=== PATIENT | male | born 1955 | race Caucasian/White ===

== ENCOUNTER 2017-02-18 04:03 | Emergency (ER) | payer OTHER ==
[~2017-02-18 04:03] MED LIST: AMBIEN10 MG PO; ASPIR-LOW81 M1 PO; ATI0.5 PO; ATI1 PO; CYCLOBENZAPRINE5 MG PO; DIA5 PO; FERL PO; FOL1 PO; FORTESTA; GLU850 PO; K10 PO; KEPPRA500 MG PO; LAC30L PO; LACTULOSE10 GM/152 PO; LASIX40 MG PO; MAG PO; NAP500 PO; NORCO1 TA2 PO; OYSCO 500 + D 51 TAB PO; PAX20 PO; PRI20 PO; TEN50 PO; THI100 PO; TRAMADOL HCL50 MG PO; V10 PO; ZOC20 PO
[2017-02-18 06:46] VITALS: BP 156/79
== END 2017-02-18 06:46 | disposition home or self-care (01) ==
LOC: ED 04:03
DX: S00.83XA Contusion of other part of head, initial encounter (principal); F10.10 Alcohol abuse, uncomplicated; I10 Essential (primary) hypertension; E11.9 Type 2 diabetes mellitus without complications; E78.00 Pure hypercholesterolemia, unspecified; M19.90 Unspecified osteoarthritis, unspecified site; F32.9 Major depressive disorder, single episode, unspecified; W18.30XA Fall on same level, unspecified, initial encounter; Y93.89 Activity, other specified; Y92.89 Other specified places as the place of occurrence of the external cause; Y99.8 Other external cause status
CPT/HCPCS: 90715

== ENCOUNTER 2017-03-20 15:57 | Inpatient (IN) | payer OTHER ==
[~2017-03-20] VITALS: Ht 172.7 cm; Wt 149.2 kg
[2017-03-20 17:44] LABS: RED CELL DISTRIBUTION WIDTH 13.9 % (11.5-14.5)
[2017-03-20 17:50] LABS: PLATELET COUNT 115 x10^3mcL (130-400)
[2017-03-20 18:13] LABS: FREE T4 1.07 ng/dL (0.76-1.46); FREE THYROXINE INDEX 2.6 ug/dL (1.4-4.5); T4(THYROXINE) 6.9 ug/dL (4.7-13.3)
[2017-03-20 18:15] LABS: BILIRUBIN TOTAL 0.64 mg/dL (0.20-1.00); CALCIUM 9.1 mg/dL (8.5-10.1); CARBON DIOXIDE 26.6 mmol/L (21-32); TOTAL PROTEIN, SERUM 7.6 g/dL (6.4-8.2)
[2017-03-20 18:16] LABS: CHOLESTEROL/HDL RATIO 1.9
[2017-03-20 18:31] LABS: T3 TOTAL 1.02 ng/mL
[2017-03-20 19:53] LABS: MAGNESIUM 2.3 mg/dL (1.8-2.4); PHOSPHOROUS 2.6 mg/dL (2.5-4.9)
[2017-03-20 20:11] VITALS: BP 138/62
[2017-03-20 20:55] VITALS: BP 138/62
[2017-03-21 05:59] LABS: BASOPHIL % 0.9 % (0-2); RED CELL DISTRIBUTION WIDTH 13.6 % (11.5-14.5)
[2017-03-21 06:11] VITALS: BP 148/68
[2017-03-21 06:21] LABS: CALCIUM 8.7 mg/dL (8.5-10.1); CARBON DIOXIDE 24.1 mmol/L (21-32); CHLORIDE SERUM 111 mmol/L (98-107); CREATININE SERUM 1.1 mg/dL (0.7-1.3); GFR1 > 60 mL/min; GLUCOSE SERUM 111 mg/dL (74-106); MAGNESIUM 2.3 mg/dL (1.8-2.4); PHOSPHOROUS 4.2 mg/dL (2.5-4.9); PLATELET COUNT 96 x10^3mcL (130-400); POTASSIUM SERUM 3.5 mmol/L (3.5-5.1); SODIUM SERUM 145 mmol/L (136-145)
[2017-03-21 07:05] LABS: UA SPECIFIC GRAVITY 1.015 (1.005-1.035); microscopic required? YES; urine erythrocyte NEGATIVE (NEGATIVE)
[2017-03-21 07:17] LABS: AMPHETAMINE QUAL UR NONE DETECTED (NEG <=1000)
[2017-03-21] MEDS ORDERED: PROPRANOLOL HCL40 MG PO (10:37)
[2017-03-21 13:22] VITALS: BP 136/55
[2017-03-21 15:23] VITALS: BP 136/55
[2017-03-21 17:58] VITALS: BP 146/56
[2017-03-21 21:04] VITALS: BP 139/53
[2017-03-22 04:46] VITALS: BP 101/68
[2017-03-22 06:09] LABS: CALCIUM 8.2 mg/dL (8.5-10.1); CARBON DIOXIDE 26.5 mmol/L (21-32); CHLORIDE SERUM 109 mmol/L (98-107); CREATININE SERUM 0.8 mg/dL (0.7-1.3); GFR1 > 60 mL/min; GLUCOSE SERUM 131 mg/dL (74-106); POTASSIUM SERUM 3.4 mmol/L (3.5-5.1); SODIUM SERUM 141 mmol/L (136-145)
[2017-03-22 06:21] LABS: BASOPHIL % 0.7 % (0-2); RED CELL DISTRIBUTION WIDTH 13.6 % (11.5-14.5)
[2017-03-22 06:27] LABS: PLATELET COUNT 91 x10^3mcL (130-400)
[2017-03-22 08:59] VITALS: BP 129/50
[2017-03-22 12:43] VITALS: BP 146/52
[2017-03-22 16:47] VITALS: BP 132/63
[2017-03-22 21:14] VITALS: BP 142/49
[2017-03-23 05:58] VITALS: BP 133/58
[2017-03-23 06:42] LABS: BASOPHIL % 0.8 % (0-2); RED CELL DISTRIBUTION WIDTH 13.5 % (11.5-14.5)
[2017-03-23 06:52] LABS: PLATELET COUNT 98 x10^3mcL (130-400)
[2017-03-23 07:05] LABS: CALCIUM 8.3 mg/dL (8.5-10.1); CARBON DIOXIDE 27.1 mmol/L (21-32); CHLORIDE SERUM 106 mmol/L (98-107); CREATININE SERUM 0.9 mg/dL (0.7-1.3); GFR1 > 60 mL/min; GLUCOSE SERUM 127 mg/dL (74-106); POTASSIUM SERUM 3.7 mmol/L (3.5-5.1); SODIUM SERUM 141 mmol/L (136-145)
[2017-03-23 08:47] VITALS: BP 129/69
[2017-03-23 13:25] VITALS: BP 149/74
[2017-03-23] MEDS ORDERED: XIFAXAN550 M1 PO (15:12)
[2017-03-23] MEDS ORDERED: LAC30L PO (15:14)
[2017-03-23 15:25] VITALS: BP 149/74
[2017-03-23] MEDS ORDERED: ASPIR 8181 MG PO (17:46)
== END 2017-03-23 16:19 | disposition home or self-care (01) | DRG 432 ==
LOC: ED 15:57 → DU 19:05
PROVIDERS: Specialist; ADMIT Family Medicine Sports Medicine
DX: K70.30 Alcoholic cirrhosis of liver without ascites (principal); N17.0 Acute kidney failure with tubular necrosis; D68.69 Other thrombophilia; E44.0 Moderate protein-calorie malnutrition; Z68.42 Body mass index [BMI] 45.0-49.9, adult; K72.90 Hepatic failure, unspecified without coma; F10.229 Alcohol dependence with intoxication, unspecified; I16.0 Hypertensive urgency; E11.65 Type 2 diabetes mellitus with hyperglycemia; E11.59 Type 2 diabetes mellitus with other circulatory complications; E87.6 Hypokalemia; D64.9 Anemia, unspecified; I10 Essential (primary) hypertension; G40.909 Epilepsy, unspecified, not intractable, without status epilepticus; M19.90 Unspecified osteoarthritis, unspecified site; F32.9 Major depressive disorder, single episode, unspecified; E66.01 Morbid (severe) obesity due to excess calories; Y90.6 Blood alcohol level of 120-199 mg/100 ml; Z79.84 Long term (current) use of oral hypoglycemic drugs
CPT/HCPCS: 83880; 84439; 90658; 94150; G0480; J3411; J3475; J3490; J7030; J7620; Q0092

== ENCOUNTER 2017-04-12 21:01 | Emergency (ER) | payer OTHER ==
[~2017-04-12 21:01] MED LIST changes: +ASPIR 8181 MG PO; +PROPRANOLOL HCL40 MG PO; +XIFAXAN550 M1 PO
[2017-04-12 22:15] LABS: BASOPHIL % 0.5 % (0-2); RED CELL DISTRIBUTION WIDTH 13.3 % (11.5-14.5)
[2017-04-12 22:17] LABS: PLATELET COUNT 117 x10^3mcL (130-400)
[2017-04-12 22:20] LABS: CALCIUM 9.1 mg/dL (8.5-10.1); CARBON DIOXIDE 29.4 mmol/L (21-32); CHLORIDE SERUM 100 mmol/L (98-107); CREATININE SERUM 1.2 mg/dL (0.7-1.3); GFR1 > 60 mL/min; POTASSIUM SERUM 3.9 mmol/L (3.5-5.1); SODIUM SERUM 136 mmol/L (136-145)
[2017-04-12 22:26] LABS: ALKALINE PHOSPHATASE 172 U/L (46-116); ALT/SGPT 22 U/L (16-63); AST/SGOT 31 U/L (15-37); BILIRUBIN TOTAL 0.6 mg/dL (0.20-1.00); TOTAL PROTEIN, SERUM 7.5 g/dL (6.4-8.2)
[2017-04-12 22:28] LABS: ALBUMIN 2.7 g/dL (3.4-5.0)
[2017-04-12 22:34] LABS: GLUCOSE SERUM 424 mg/dL (74-106)
[2017-04-12 22:47] LABS: UA SPECIFIC GRAVITY <=1.005 (1.005-1.035); microscopic required? YES; urine erythrocyte 2+ (NEGATIVE)
[2017-04-13 01:55] VITALS: BP 157/74
== END 2017-04-13 01:55 | disposition home or self-care (01) ==
LOC: ED 21:01
PROVIDERS: Emergency Medicine
DX: E11.65 Type 2 diabetes mellitus with hyperglycemia (principal); F10.129 Alcohol abuse with intoxication, unspecified; I10 Essential (primary) hypertension; E78.00 Pure hypercholesterolemia, unspecified; M19.90 Unspecified osteoarthritis, unspecified site
CPT/HCPCS: G0480; J1815; J7030

== ENCOUNTER 2018-06-16 10:20 | Inpatient (IN) | payer OTHER ==
[~2018-06-16] VITALS: Ht 172.7 cm; Wt 139.0 kg
[~2018-06-16 10:20] MED LIST changes: -AMBIEN10 MG PO
[2018-06-16 11:48] LABS: BASOPHIL % 0.3 % (0-2); PLATELET COUNT 113 x10^3mcL (130-400); RED CELL DISTRIBUTION WIDTH 14.4 % (11.5-14.5)
[2018-06-16 12:12] LABS: BILIRUBIN TOTAL 0.72 mg/dL (0.20-1.00); CALCIUM 8.7 mg/dL (8.5-10.1); CARBON DIOXIDE 18.8 mmol/L (21-32); CREATININE SERUM 2.2 mg/dL (0.7-1.3); TOTAL PROTEIN, SERUM 8.2 g/dL (6.4-8.2)
[2018-06-16 12:20] LABS: ALBUMIN 2.9 g/dL (3.4-5.0)
[2018-06-16 17:30] VITALS: BP 110/56
[2018-06-16 17:44] VITALS: BP 110/56
[2018-06-16 20:13] VITALS: BP 149/48
[2018-06-16 22:05] LABS: UA SPECIFIC GRAVITY >=1.030 (1.005-1.035); microscopic required? YES; urine erythrocyte 3+ (NEGATIVE)
[2018-06-17 05:39] VITALS: BP 155/56
[2018-06-17 08:10] LABS: BILIRUBIN TOTAL 0.97 mg/dL (0.20-1.00); CALCIUM 7.8 mg/dL (8.5-10.1); CARBON DIOXIDE 23.4 mmol/L (21-32); CREATININE SERUM 1.9 mg/dL (0.7-1.3); POTASSIUM SERUM 3.6 mmol/L (3.5-5.1); TOTAL PROTEIN, SERUM 6.6 g/dL (6.4-8.2)
[2018-06-17 08:17] LABS: ALBUMIN 2.2 g/dL (3.4-5.0)
[2018-06-17 10:08] VITALS: BP 145/66
[2018-06-17 12:15] VITALS: BP 157/60
[2018-06-17 12:57] LABS: BASOPHIL % 0.2 % (0-2); RED CELL DISTRIBUTION WIDTH 14.1 % (11.5-14.5)
[2018-06-17 13:16] LABS: PLATELET COUNT 68 x10^3mcL (130-400)
[2018-06-17 17:13] VITALS: BP 165/71
[2018-06-17 20:57] VITALS: BP 153/63
[2018-06-18 06:08] LABS: BASOPHIL % 0.6 % (0-2); RED CELL DISTRIBUTION WIDTH 14.1 % (11.5-14.5)
[2018-06-18 06:11] VITALS: BP 153/71
[2018-06-18 06:28] LABS: BILIRUBIN DIRECT 0.32 mg/dL (0.0-0.2); BILIRUBIN TOTAL 0.92 mg/dL (0.20-1.00); CARBON DIOXIDE 23.7 mmol/L (21-32); CREATININE SERUM 2.8 mg/dL (0.7-1.3); POTASSIUM SERUM 3.7 mmol/L (3.5-5.1)
[2018-06-18 06:50] LABS: PLATELET COUNT 68 x10^3mcL (130-400)
[2018-06-18 07:52] VITALS: BP 150/60
[2018-06-18 11:57] VITALS: BP 141/69
[2018-06-18 16:15] VITALS: BP 149/60
[2018-06-18 21:52] VITALS: BP 165/62
[2018-06-19 05:41] VITALS: BP 131/59
[2018-06-19 07:23] LABS: BILIRUBIN TOTAL 1.14 mg/dL (0.20-1.00); CARBON DIOXIDE 22.5 mmol/L (21-32); CREATININE SERUM 3.7 mg/dL (0.7-1.3); POTASSIUM SERUM 3.4 mmol/L (3.5-5.1)
[2018-06-19 07:29] LABS: ALBUMIN 2.3 g/dL (3.4-5.0); TOTAL PROTEIN, SERUM 5.9 g/dL (6.4-8.2)
[2018-06-19 08:14] VITALS: BP 177/63
[2018-06-19 11:16] LABS: BASOPHIL % 0.6 % (0-2); RED CELL DISTRIBUTION WIDTH 13.9 % (11.5-14.5)
[2018-06-19 11:27] LABS: PLATELET COUNT 63 x10^3mcL (130-400)
[2018-06-19 12:06] VITALS: BP 171/56
[2018-06-19 15:47] VITALS: BP 150/67
[2018-06-19 21:58] VITALS: BP 167/53
[2018-06-20 05:08] VITALS: BP 164/55
[2018-06-20 06:44] LABS: BILIRUBIN DIRECT 0.46 mg/dL (0.0-0.2); BILIRUBIN TOTAL 1.3 mg/dL (0.20-1.00); CALCIUM 8.4 mg/dL (8.5-10.1); CARBON DIOXIDE 18.6 mmol/L (21-32)
[2018-06-20 06:46] LABS: ALBUMIN 2.3 g/dL (3.4-5.0); CREATININE SERUM 4.4 mg/dL (0.7-1.3); TOTAL PROTEIN, SERUM 5.7 g/dL (6.4-8.2)
[2018-06-20 07:54] LABS: BASOPHIL % 0.5 % (0-2); RED CELL DISTRIBUTION WIDTH 13.8 % (11.5-14.5)
[2018-06-20 07:56] LABS: PLATELET COUNT 72 x10^3mcL (130-400)
[2018-06-20 09:30] VITALS: BP 155/54
[2018-06-20 12:21] VITALS: BP 153/50
[2018-06-20 16:25] VITALS: BP 152/54
[2018-06-20 20:59] VITALS: BP 169/67
[2018-06-21 05:28] VITALS: BP 165/82
[2018-06-21 07:16] LABS: BASOPHIL % 0.4 % (0-2); RED CELL DISTRIBUTION WIDTH 14.1 % (11.5-14.5)
[2018-06-21 07:24] LABS: BILIRUBIN TOTAL 1.39 mg/dL (0.20-1.00); CALCIUM 7.8 mg/dL (8.5-10.1); CARBON DIOXIDE 22.9 mmol/L (21-32)
[2018-06-21 07:26] LABS: ALBUMIN 2.2 g/dL (3.4-5.0); TOTAL PROTEIN, SERUM 5.3 g/dL (6.4-8.2)
[2018-06-21 07:28] LABS: CREATININE SERUM 4.4 mg/dL (0.7-1.3); POTASSIUM SERUM 2.9 mmol/L (3.5-5.1)
[2018-06-21 07:38] LABS: ALBUMIN 2.1 g/dL (3.4-5.0); BILIRUBIN DIRECT 0.42 mg/dL (0.0-0.2); BILIRUBIN TOTAL 1.35 mg/dL (0.20-1.00); CALCIUM 7.9 mg/dL (8.5-10.1); CARBON DIOXIDE 20.9 mmol/L (21-32); TOTAL PROTEIN, SERUM 5.6 g/dL (6.4-8.2)
[2018-06-21 07:39] LABS: CREATININE SERUM 4.4 mg/dL (0.7-1.3)
[2018-06-21 08:13] LABS: PLATELET COUNT 92 x10^3mcL (130-400)
[2018-06-21 09:26] VITALS: BP 134/59
[2018-06-21 14:10] VITALS: BP 140/47
[2018-06-21 17:00] VITALS: BP 135/54
[2018-06-21 21:00] VITALS: BP 144/51
[2018-06-22 05:10] VITALS: BP 139/59
[2018-06-22 07:25] LABS: BASOPHIL % 0.6 % (0-2); PLATELET COUNT 113 x10^3mcL (130-400); RED CELL DISTRIBUTION WIDTH 14.2 % (11.5-14.5)
[2018-06-22 07:30] LABS: BILIRUBIN DIRECT 0.52 mg/dL (0.0-0.2); BILIRUBIN TOTAL 1.4 mg/dL (0.20-1.00); CALCIUM 8.5 mg/dL (8.5-10.1); CARBON DIOXIDE 26.1 mmol/L (21-32); POTASSIUM SERUM 3.3 mmol/L (3.5-5.1)
[2018-06-22 07:37] LABS: ALBUMIN 2.1 g/dL (3.4-5.0); TOTAL PROTEIN, SERUM 5.8 g/dL (6.4-8.2)
[2018-06-22 09:07] VITALS: BP 153/91
[2018-06-22 12:50] VITALS: BP 146/50
[2018-06-22 16:59] VITALS: BP 147/50
[2018-06-22 20:53] VITALS: BP 154/50
[2018-06-23 05:20] VITALS: BP 158/53
[2018-06-23 07:10] LABS: BASOPHIL % 0.5 % (0-2); RED CELL DISTRIBUTION WIDTH 14.2 % (11.5-14.5)
[2018-06-23 07:13] LABS: PLATELET COUNT 113 x10^3mcL (130-400)
[2018-06-23 07:25] LABS: BILIRUBIN DIRECT 0.46 mg/dL (0.0-0.2); BILIRUBIN TOTAL 1.42 mg/dL (0.20-1.00); CARBON DIOXIDE 25.6 mmol/L (21-32); CREATININE SERUM 3.4 mg/dL (0.7-1.3); POTASSIUM SERUM 3.1 mmol/L (3.5-5.1)
[2018-06-23 07:27] LABS: TOTAL PROTEIN, SERUM 5.9 g/dL (6.4-8.2)
[2018-06-23 09:34] VITALS: BP 183/67
[2018-06-23 12:31] VITALS: BP 159/58
[2018-06-23 16:28] VITALS: BP 150/59
[2018-06-23 21:39] VITALS: BP 157/57
[2018-06-24] VITALS (7 sets, daily range): BP systolic 148–174; BP diastolic 52–75
[2018-06-24 06:26] LABS: CK-BB 0 % (0); CK-MB 0 % (0-3); CK-MM 100 % (97-100); MACRO TYPE 1 0 % (Not Observed); MACRO TYPE 2 0 % (Not Observed)
[2018-06-24 06:26] LABS: CK-BB 0 % (0); CK-MB 0 % (0-3); CK-MM 100 % (97-100); MACRO TYPE 1 0 % (Not Observed); MACRO TYPE 2 0 % (Not Observed)
[2018-06-24 06:31] LABS: BASOPHIL % 0.6 % (0-2); RED CELL DISTRIBUTION WIDTH 14.4 % (11.5-14.5)
[2018-06-24 06:50] LABS: BILIRUBIN TOTAL 1.28 mg/dL (0.20-1.00); CALCIUM 8.1 mg/dL (8.5-10.1); CARBON DIOXIDE 25.8 mmol/L (21-32); CREATININE SERUM 2.6 mg/dL (0.7-1.3); MAGNESIUM 1.3 mg/dL (1.8-2.4); POTASSIUM SERUM 3.1 mmol/L (3.5-5.1)
[2018-06-24 07:22] LABS: TOTAL PROTEIN, SERUM 5.9 g/dL (6.4-8.2)
[2018-06-24 07:32] LABS: PLATELET COUNT 119 x10^3mcL (130-400)
[2018-06-24] MEDS ORDERED: NOR10 PO (10:40)
[2018-06-24] MEDS ORDERED: LEVEMIR100 U/M1 SC (10:40)
[2018-06-24] MEDS ORDERED: HUMULIN R100 U/1 M1 SC (10:41)
[2018-06-24] MEDS ORDERED: AMBIEN10 MG PO (13:23)
[2018-06-25] VITALS (7 sets, daily range): BP systolic 135–170; BP diastolic 44–59
== END 2018-06-25 21:35 | DRG 432 ==
LOC: ED 10:20 → DU 15:05 → EDBEDREQ 15:07 → MU 17:21 → DU 18:19
PROVIDERS: Emergency Medicine; Internal Medicine Pulmonary Disease; ADMIT Internal Medicine
DX: K70.40 Alcoholic hepatic failure without coma (principal); N17.0 Acute kidney failure with tubular necrosis; M62.82 Rhabdomyolysis; E87.2 Acidosis; L97.419 Non-pressure chronic ulcer of right heel and midfoot with unspecified severity; K70.30 Alcoholic cirrhosis of liver without ascites; F10.229 Alcohol dependence with intoxication, unspecified; I12.9 Hypertensive chronic kidney disease with stage 1 through stage 4 chronic kidney disease, or unspecified chronic kidney disease; E11.22 Type 2 diabetes mellitus with diabetic chronic kidney disease; N18.3 Chronic kidney disease, stage 3 (moderate); E11.65 Type 2 diabetes mellitus with hyperglycemia; F41.8 Other specified anxiety disorders; E66.01 Morbid (severe) obesity due to excess calories; Z79.4 Long term (current) use of insulin; Y90.6 Blood alcohol level of 120-199 mg/100 ml
CPT/HCPCS: 36600; 82962; 97110-GP; 97116-GP; 97530-GP; C9113; G0480; J0360; J1815; J3475; J3480; J3490; J7030; P9047; Q0092

== ENCOUNTER 2018-07-12 09:35 | Inpatient (IN) | payer OTHER ==
[~2018-07-12] VITALS: Ht 172.7 cm; Wt 133.4 kg
[~2018-07-12 09:35] MED LIST changes: +AMBIEN10 MG PO; +HUMULIN R100 U/1 M1 SC; +LEVEMIR100 U/M1 SC; +NOR10 PO
[2018-07-12 09:39] VITALS: Ht 172.7 cm; Wt 133.4 kg
[2018-07-12 11:07] LABS: CALCIUM 8.6 mg/dL (8.5-10.1); CARBON DIOXIDE 33.6 mmol/L (21-32); CHLORIDE SERUM 106 mmol/L (98-107); CREATININE SERUM 1.4 mg/dL (0.7-1.3); GFR1 54 mL/min; GLUCOSE SERUM 170 mg/dL (74-106); POTASSIUM SERUM 3.1 mmol/L (3.5-5.1); SODIUM SERUM 145 mmol/L (136-145)
[2018-07-12 11:12] LABS: ALKALINE PHOSPHATASE 104 U/L (46-116); ALT/SGPT 16 U/L (16-63); AST/SGOT 28 U/L (15-37); BILIRUBIN TOTAL 1.35 mg/dL (0.20-1.00); HDL CHOLESTEROL 40 mg/dL (40-60); MAGNESIUM 1.4 mg/dL (1.8-2.4); PHOSPHOROUS 3.1 mg/dL (2.5-4.9); TOTAL PROTEIN, SERUM 7.6 g/dL (6.4-8.2)
[2018-07-12 11:13] LABS: PLATELET COUNT 89 x10^3mcL (130-400); RED CELL DISTRIBUTION WIDTH 15.2 % (11.5-14.5)
[2018-07-12 11:15] LABS: ALBUMIN 2.7 g/dL (3.4-5.0); CHOLESTEROL 129 mg/dL (<200)
[2018-07-12 14:22] LABS: microscopic required? YES; urine erythrocyte TRACE (NEGATIVE)
[2018-07-12 14:37] LABS: BAND NEUTROPHIL 2 % (0-10); SEGMENTED NEUTROPHILS 62 % (37-75)
[2018-07-12 14:38] LABS: MONOCYTE 8 % (0-7); rbc morphology (normal/abnorm) ABNORMAL (NORMAL)
[2018-07-12 14:40] LABS: PLATELET MORPHOLOGY PLATELETS DECREASED
[2018-07-12 16:35] VITALS: BP 174/71
[2018-07-12 21:02] VITALS: BP 165/63
[2018-07-13 06:09] VITALS: BP 147/55
[2018-07-13 06:47] LABS: RED CELL DISTRIBUTION WIDTH 14.1 % (11.5-14.5)
[2018-07-13 06:54] LABS: PLATELET COUNT 81 x10^3mcL (130-400)
[2018-07-13 09:18] VITALS: BP 134/47
[2018-07-13 16:28] VITALS: BP 127/48
[2018-07-14 05:39] VITALS: BP 153/48
[2018-07-14 13:56] VITALS: BP 146/62
[2018-07-14 17:03] VITALS: BP 136/47
[2018-07-14 21:18] VITALS: BP 139/54
[2018-07-15 05:45] VITALS: BP 149/77
[2018-07-15 08:56] VITALS: BP 138/47
[2018-07-15 09:05] VITALS: BP 138/47
[2018-07-15 17:06] VITALS: BP 133/55
[2018-07-15 17:16] VITALS: BP 138/47
== END 2018-07-15 19:00 | DRG 93 ==
LOC: ED 09:35 → MU 14:55
PROVIDERS: Emergency Medicine; ADMIT Internal Medicine Pulmonary Disease
DX: R27.0 Ataxia, unspecified (principal); E87.6 Hypokalemia; K70.10 Alcoholic hepatitis without ascites; I10 Essential (primary) hypertension; E11.9 Type 2 diabetes mellitus without complications; R26.81 Unsteadiness on feet; R54 Age-related physical debility; F41.9 Anxiety disorder, unspecified; F32.9 Major depressive disorder, single episode, unspecified; E78.5 Hyperlipidemia, unspecified; M19.90 Unspecified osteoarthritis, unspecified site; F10.21 Alcohol dependence, in remission; E66.01 Morbid (severe) obesity due to excess calories
CPT/HCPCS: 82962; 90715; 97110-GP; 97116-GP; G0480; J7030; Q0092

== ENCOUNTER 2018-11-25 22:04 | Emergency (ER) | payer OTHER ==
[~2018-11-25] VITALS: Ht 172.7 cm; Wt 133.8 kg
[2018-11-25 22:34] VITALS: Ht 172.7 cm; Wt 133.8 kg
[2018-11-26 00:43] LABS: RED CELL DISTRIBUTION WIDTH 14.3 % (11.5-14.5)
[2018-11-26 00:45] LABS: PLATELET COUNT 94 x10^3mcL (130-400)
[2018-11-26 01:03] LABS: CALCIUM 8.9 mg/dL (8.5-10.1); CARBON DIOXIDE 24.8 mmol/L (21-32); POTASSIUM SERUM 3.8 mmol/L (3.5-5.1)
[2018-11-26 01:08] LABS: BILIRUBIN TOTAL 0.6 mg/dL (0.20-1.00); TOTAL PROTEIN, SERUM 6.9 g/dL (6.4-8.2)
[2018-11-26 01:10] LABS: ALBUMIN 2.7 g/dL (3.4-5.0)
[2018-11-26 01:41] LABS: microscopic required? YES; urine erythrocyte 2+ (NEGATIVE)
[2018-11-26 03:01] VITALS: BP 146/71
== END 2018-11-26 03:01 | disposition home or self-care (01) ==
LOC: ED 22:04
PROVIDERS: Emergency Medicine
DX: S93.491A Sprain of other ligament of right ankle, initial encounter (principal); M21.371 Foot drop, right foot; I12.9 Hypertensive chronic kidney disease with stage 1 through stage 4 chronic kidney disease, or unspecified chronic kidney disease; E11.22 Type 2 diabetes mellitus with diabetic chronic kidney disease; N18.9 Chronic kidney disease, unspecified; F10.20 Alcohol dependence, uncomplicated; E11.65 Type 2 diabetes mellitus with hyperglycemia; N39.0 Urinary tract infection, site not specified; F32.9 Major depressive disorder, single episode, unspecified; E78.00 Pure hypercholesterolemia, unspecified; F41.9 Anxiety disorder, unspecified; M19.90 Unspecified osteoarthritis, unspecified site; W01.0XXA Fall on same level from slipping, tripping and stumbling without subsequent striking against object, initial encounter; Y93.01 Activity, walking, marching and hiking; Y92.098 Other place in other non-institutional residence as the place of occurrence of the external cause; Y99.8 Other external cause status
CPT/HCPCS: 36415; 82962; G0480; J1815; J1885

== ENCOUNTER 2019-01-18 12:03 | Inpatient (IN) | payer OTHER ==
[~2019-01-18] VITALS: Ht 172.7 cm; Wt 135.0 kg
--- NOTE | 2019-01-18 12:15 | NUR ---
PT PRESENTS TO ED BIBA FOR GENERAL WEAKNESS AND ELEVATED BLOOD GLUCOSE. PER EMS PT SON CALLED THEM BECAUSE PT WAS FEELING "VERY WEAK" AND WAS LAYING ON THE FLOOR AND COULD NOT GET UP. EMS STS PT HAS NOT BEEN EATING REGULARLY NORMAL AND HAS HAD HEADACHE X3 DAYS. EMS STS PT BLOOD GLUCOSE WAS 575 ON SCENE AND PT BP WAS 85 SYSTOLIC ON SCENE. PER EMS PT BP ELEVATED TO 110/54 IN ROUTE WHILE GETTING 1L NS. PT STS "I THINK I TOOK MY INSULIN TODAY". PT STS HE NORMALLY WALKS ON HIS OWN AT HOME, BUT IS FEELING TOO WEAK TO WALK CURRENTLY. PT AAOX4, RESP E/U, ON FULL CM, WILL CONTINUE TO MONITOR.
[2019-01-18 13:14] LABS: BASOPHIL % 0.1 % (0-2); RED CELL DISTRIBUTION WIDTH 14.1 % (11.5-14.5)
[2019-01-18 13:17] LABS: PLATELET COUNT 49 x10^3mcL (130-400)
[2019-01-18 13:41] LABS: CARBON DIOXIDE 19.5 mmol/L (21-32); CHLORIDE SERUM 97 mmol/L (98-107); CREATININE SERUM 1.6 mg/dL (0.7-1.3); GFR1 47 mL/min; GLUCOSE SERUM 410 mg/dL (74-106); POTASSIUM SERUM 3.5 mmol/L (3.5-5.1); SODIUM SERUM 126 mmol/L (136-145)
[2019-01-18 13:45] LABS: ALKALINE PHOSPHATASE 67 U/L (46-116); ALT/SGPT 9 U/L (16-63); AST/SGOT 21 U/L (15-37); BILIRUBIN TOTAL 0.92 mg/dL (0.20-1.00)
[2019-01-18 13:46] LABS: ALBUMIN 2.2 g/dL (3.4-5.0)
--- NOTE | 2019-01-18 13:59 | NUR ---
PT CONTINUES TO REQUEST FOR BLANKET. PT TOLD HE HAS FEVER OF 101.8F AND SHOULD HAVE LITTLE CLOTHING ON HIS BODY POSSIBLE RIGHT NOW. PT VERBALIZED UNDERSTANDING. NOTIFIED OF PT FEVER.
[2019-01-18 14:30] LABS: microscopic required? YES; urine erythrocyte 3+ (NEGATIVE)
--- NOTE | 2019-01-18 14:39 | NUR ---
PT HAS INFECTION (UTI), PT MEETS SIRS (ELEVATED TEMP, ELEVATED RR) PT HAS SIGNS OF ORGAN DYSFUNCTION (LACTIC ACID 2.7) [PLATELETS ARE 49,[address] QIU THIS IS CHRONIC/NOT ACUTE.] PT MEETS CRITERIA FOR SEVERE SEPSIS. DR. QIU NOTIFIED.
--- NOTE | 2019-01-18 16:48 | NUR ---
RECYCLED PT BP X4 AND HIGHEST SYSTOLIC BP WAS 88. DR. QIU WAS MADE AWARE. PT AAOX4, RESP E/U, ON FULL CM, WILL CONTINUE TO MONITOR.
--- NOTE | 2019-01-18 16:59 | NUR ---
PT ATTEMPTED TO USE BEDSIDE URINAL BUT WAS UNABLE TO URINATE. PT STS HE FEELS LIKE HE HAS TO GO BUT IS UNABLE TO.
--- NOTE | 2019-01-18 17:59 | NUR ---
PT GIVEN WATER PER REQUEST. PT AAOX4, RESP E/U, ON FULL CM, WILL CONTINUE TO MONITOR.
--- NOTE | 2019-01-18 18:20 | NUR ---
PT GIVEN PERICARE WITH ASSISTANCE FROM SUNNY OSHEA
--- NOTE | 2019-01-18 19:23 | NUR ---
REPORT GIVEN TO NINO IN ICU FOR CONTINUITY OF PT CARE.
--- NOTE | 2019-01-18 19:23 | NUR ---
RECIEVED REPORT FROM NORBERTO SAPP. POC DISCUSSED. NURSING UPDATES. AWAITING PT ARRIVAL.
--- NOTE | 2019-01-18 19:35 | NUR ---
RECIEVED PT FROM ER. TEMP 98.5 RR 15. O2 94%. HR 63. BP 102/56(65). PT A&OX4. SPEECH CLEAR AND APPROPRAITE. PERRL. EENT FREE OF DISCHARGE. LUNG SOUNDS DIM. S1S2 DISTANT. PULSES WEAK JUSTIN X4. CAP REFILL < 3 SEC. NO EDEMA. GENERALIZED WEAKNESS. SKIN WARM/DRY W/ DISCOLORATION TO BLE. PT REPORTS TINGLING IN RLE. VOIDS FREELY TO BEDSIDE COMMODE. ABD DISTENDED/OBESE. BS ACTIVE X4Q. NO N/V. CALM AND COOPERATIVE.
[2019-01-18 20:21] VITALS: BP 102/56
--- NOTE | 2019-01-18 21:00 | NUR ---
NOTIFIED BY LAB OF HEP SQ CONTRAINIDCATED W/ PLT 49 AND TO CANCEL D/C ORDER WHILE ITS ON PENDING. ALSO NOTED NEEDING CLARIFICATION FOR POTASSIUM CLORDIDE [address] SEQUEIRA ENDORSE.
[2019-01-18 23:20] VITALS: BP 99/48
[2019-01-19 03:12] VITALS: BP 130/62
--- NOTE | 2019-01-19 03:42 | NUR ---
PT RESTING CALMLY IN BED. NO ACUTE CHANGES. PT DENIES ANY CHEST PAIN. WILL CONT TO MONITOR.
--- NOTE | 2019-01-19 04:54 | NUR ---
PT RESTING CALMLY IN BED. NO S/S OF DISTRESS. BP WNL. WILL CONT TO MONITOR AND ENDORSE.
--- NOTE | 2019-01-19 05:31 | NUR ---
PT C/O HEADACHE 10/24. ADMIN PRN TYLENOL *(SEE MAR)*. PT STATED HAVING ARTHRITIS IN HIS BACK AND RIGHT LOWER LEG.
[2019-01-19 06:27] LABS: BASOPHIL % 0.1 % (0-2)
[2019-01-19 06:30] LABS: CALCIUM 7.6 mg/dL (8.5-10.1); CARBON DIOXIDE 19.8 mmol/L (21-32); CREATININE SERUM 1.6 mg/dL (0.7-1.3); MAGNESIUM 1.5 mg/dL (1.8-2.4)
[2019-01-19 06:32] LABS: PLATELET COUNT 57 x10^3mcL (130-400); RED CELL DISTRIBUTION WIDTH 15.1 % (11.5-14.5)
[2019-01-19 07:46] VITALS: Ht 172.7 cm; Wt 135.0 kg
[2019-01-19 07:52] VITALS: BP 118/48
[2019-01-19 11:00] VITALS: BP 112/58
[2019-01-19 15:24] VITALS: BP 107/40
--- NOTE | 2019-01-19 16:45 | NUR ---
DR. BONILLA PAGED AT THIS TIME REGARDING PATIENTS BLOOD SUGAR OF 452.
--- NOTE | 2019-01-19 17:04 | NUR ---
DR. BONILLA CALLED AT THIS TIME. UPDATE GIVEN ON PATIENTS BLOOD SUGAR READING 452. PER DR. BONILLA, RESUME WITH LANTUS, BID ORDERED AND NO NEW ORDERS AT THIS TIME.
--- NOTE | 2019-01-19 18:53 | NUR ---
REPORT GIVEN TO NORBERTO BROWN AT THIS TIME. ALL QUESTIONS ANSWERED.
--- NOTE | 2019-01-19 19:30 | NUR ---
RECEIVED PT FROM ICU ACCOMPANIED WITH NURSE VIA WC, PT WAS ABLE TO WALK FEW STEPS FROM WC TO BED WITHOUT ANY INCIDENT, ALERT AND ORIENTED X 4, DENIES HEADACHE OR DIZZINESS, VERY VERBALLY RESPONSIVE, DENIES HEADACHE OR DIZZINESS, BREATHING EVEN AND UNLABORED, LUNG SOUNDS CLEAR BUT DIMINISHED AT BASE, ON ROOM AIR WITH NO RESP DISTRESS NOTED, ON TELE#22 NSR WITH ELEVATED T-WAVE, DENIES CHEST PAIN, IVF INFUSING WELL TO RH, PULSES PALPABLE, TRACE EDEMA NOTED TO BLE, MILD GENERALIZED WEAKNESS BUT ABLE TO MOVE ALL EXT AND REPOSITION HIMSELF IN BED, ABD ROUND AND NON-DISTENDED WITH ACTIVE BS, NO BM AT THIS TIME, INCONTINENT AT TIMES, BLE WITH DISCOLORATION, SZ PRECAUTION IN PLACE, NO DISTRESS NOTED, WILL KEEP TO MONITOR.
[2019-01-19 21:53] VITALS: BP 118/48
[2019-01-20 05:58] VITALS: BP 122/51
--- NOTE | 2019-01-20 06:03 | NUR ---
PT ASLEEP BUT EASILY AROUSABLE, SLEPT MOST OF NIGHT, IVF INFUSING WELL, MORNING BLOOD SUGAR-316 MG/DL WITH RISS 12 UNITS, CONDITION NO CHANGE, NO DISTRESS NOTED, WILL KEEP TO MONITOR.
[2019-01-20 06:55] LABS: ALBUMIN 1.7 g/dL (3.4-5.0); ALKALINE PHOSPHATASE 64 U/L (46-116); ALT/SGPT 12 U/L (16-63); AST/SGOT 30 U/L (15-37); BILIRUBIN TOTAL 0.5 mg/dL (0.20-1.00); CARBON DIOXIDE 24.9 mmol/L (21-32); CHLORIDE SERUM 107 mmol/L (98-107); CREATININE SERUM 1.1 mg/dL (0.7-1.3); GFR1 > 60 mL/min; GLUCOSE SERUM 312 mg/dL (74-106); MAGNESIUM 1.9 mg/dL (1.8-2.4); POTASSIUM SERUM 3.8 mmol/L (3.5-5.1); SODIUM SERUM 139 mmol/L (136-145); TOTAL PROTEIN, SERUM 5.6 g/dL (6.4-8.2)
[2019-01-20 07:07] LABS: PLATELET COUNT 61 x10^3mcL (130-400)
--- NOTE | 2019-01-20 07:21 | NUR ---
BEDSIDE HANDOFF REPORT GIVEN TO JOSEPHINE, ALL QUESTIONS ANSWERED AND CONCERNS ADDRESSED.
--- NOTE | 2019-01-20 08:10 | NUR ---
PT RESTING BUT EASILY AROUSABLE. AAOX4. ABLE TO FOLLOW COMMANDS. NO FACIAL DROOP NOTED. SPEECH IS CLEAR AND APPROPRIATE. PERRL. PT HAS GLASSES ON. EENT FREE OF DISCHARGE. NO JVD PRESENT. TRACHEA MIDLINE. ON ROOM AIR. SYMMETRICAL CHEST WALL EXPANSION NOTED. RESPS EVEN AND UNLABORED. NO S/S OF RESP DISTRESS. PT IS OBESE. ABD IS SYMM, LARGE, ROUNDED, NONTENDER. NO S/S OF N/V. NO BM AT THIS TIME. SKIN IS WARM/DRY, DUKE/BROWN IN COLOR. EDEMA NOTED TO BLE. DARK DISCOLORATION NOTED TO BLE. PIV TO R HAND INTACT, PORT PATENT, NS INFUSING @ 80 ML/HR, DRESSING CDI. X3 SIDE RAILS UP, BED LOWEST POSITION, CALL LIGHT WITHIN REACH.
--- NOTE | 2019-01-20 08:50 | NUR ---
PT REFUSING TO TAKE LACTULOUSE MEDICATION. EXPLAINED TO PT WHY THE MEDICATION IS NEEDED AND THE RISKS IF PT WILL NOT TAKE IT. PT CONTINUING TO REFUSE.
[2019-01-20 09:20] LABS: ATYPICAL LYMPH 1 %; BAND NEUTROPHIL 3 % (0-10); BASOPHIL 0 % (0-2); MONOCYTE 5 % (0-7); SEGMENTED NEUTROPHILS 86 % (37-75)
[2019-01-20 09:25] LABS: PLATELET MORPHOLOGY PLATELETS DECREASED; rbc morphology (normal/abnorm) ABNORMAL (NORMAL)
[2019-01-20 10:26] VITALS: BP 133/60
--- NOTE | 2019-01-20 13:18 | NUR ---
Initial Nutrition Assessment: 210T/A JUAN MANNING Dx: Sepsis, UTI, uncontrolled DM PMHx: DM, HTN, morbid obesity, alcohol abuse, alcoholic hepatitis, alcohol intoxication PSHx: not documented Labs: BG 312H, BUN 21H, ALB 1.7L, Meds: Ambien, Ativan, Colace, D 50%, folic acid, humulin, lantus, Lasix, morphine, vitamin B-1, zofran Diet: CCHO PO Intake: (01/19) 80% all meals Ht: 172.72 cm (68") Wt: 135 kg (297#) BMI: 45.3 kg/m2 Bed scale: 300# IBW: 154# (70 kg) %IBW: 192 UBW: 290-295# Age: 63/M Food Allergies: NKFA Skin: discoloration to BLE Girma: 16 Edema: BLE edema GI: Last BM: 01/19 Trigger: poor PO >3d Per H&P, Pt is a 63/M with history of morbid obesity, diabetes, and alcoholic, brought in for generalized weakness. RDN Visit (01/20): Patient was alert and oriented and said that he ate most of his breakfast this morning. Patient said that he mostly cooks food at home and seemed a little disinterested in receiving nutrition education for diabetic diet. Problem with: N/V/D/C: no Problems with: Chewing/Swallowing: none Current appetite: good Recent wt change: none %wt change: N/A Vitamin/Supplement use: none Special diet at home: regular Physical activity: says he has pain in foot Nutrition education given: Diabetes diet education was provided using [facility] handout on 'Type 2 Diabetes Nutrition Therapy'. Concepts like high fiber diet, label reading, types of carbohydrates and portion control were discussed. Patient verbalized understanding and did not have any questions at this time. Patient did seem a little disinterested. Food-drug interactions: Colace- high fiber w/8854-3927 ml fluids Education given: yes Estimated Nutritional Needs Based on adjusted body weight 86 kg Energy: 9476-6079 kcal/d (25-30 kcal/kg) Protein: 86-103 g/d (1.0-1.2 g/kg) - sepsis Fluid: 3495-0861 ml/d (1 ml/kcal) or per doctor Nutrition Diagnosis 1. Impaired nutrient utilization related to endocrine dysfunction as evidenced by BG 312. 2. Morbid obesity related to excessive energy intake as evidenced by BMI 45.3 kg/m2 Intervention 1. Recommend continuing CCHO diet. 2. Diabetes diet education provided. Monitor/Evaluate Goal: PO intake at least 75% of estimated needs Monitor: PO intake, Labs, GI function F/U in 7 days as low risk 01/27
--- NOTE | 2019-01-20 13:18 | NUR ---
1. Recommend continuing [facility] diet. 2. Diabetes diet education provided.
[2019-01-20 13:42] VITALS: BP 117/50
--- NOTE | 2019-01-20 14:21 | NUR ---
SPOKE WITH AND MADE HIM AWARE OF P.T. MAKAYLA RECOMMENDATION. NEW ORDER RECEIVED, SOCIAL SERVICE TO ARRANGE FOR HOME HEALTH P.T.
--- NOTE | 2019-01-20 16:20 | NUR ---
RECEIVED PATIENT FROM NORBERTO WHITE. PATIENT RESTING IN BED, NO COMPLAINTS AT THIS TIME. CALL LIGHT IN REACH.
[2019-01-20 17:33] VITALS: BP 127/60
--- NOTE | 2019-01-20 18:05 | NUR ---
PATIENT IN BED RESTING. NO COMPLAINTS OF PAIN. PATIENT STATES HE IS FEELING DIZZY, STATES VERTIGO. WILL ENDORSE TO ONCOMING NURSE TO SPEAK WITH [employer] OFFICER RESIDENT. VS STABLE. CALL LIGHT IN REACH AT THIS TIME.
--- NOTE | 2019-01-20 19:17 | NUR ---
PT SEEN, ALERT AND ORIENTED X 4, DENIES HEADACHE OR DIZZINESS, VERY VERBALLY RESPONSIVE, DENIES HEADACHE OR DIZZINESS, BREATHING EVEN AND UNLABORED, LUNG SOUNDS CLEAR BUT DIMINISHED AT BASE, ON ROOM AIR WITH NO RESP DISTRESS NOTED, ON TELE#22 NSR WITH ELEVATED T-WAVE AND BBB, DENIES CHEST PAIN, IVF INFUSING WELL TO RH, PULSES PALPABLE, TRACE EDEMA NOTED TO BLE, MILD GENERALIZED WEAKNESS BUT ABLE TO MOVE ALL EXT AND REPOSITION HIMSELF IN BED, ABD ROUND AND NON-DISTENDED WITH ACTIVE BS, NO BM AT THIS TIME, INCONTINENT AT TIMES, BLE WITH DISCOLORATION, SZ PRECAUTION IN PLACE, NO DISTRESS NOTED, WILL KEEP TO MONITOR.
[2019-01-20 21:19] VITALS: BP 127/56
--- NOTE | 2019-01-21 05:18 | NUR ---
PT ASLEEP BUT EASILY AROUSABLE, SLEPT MOST OF NIGHT, MORNING BLOOD SUGAR-244 MG/DL WITH RISS 6 UNITS, HAD ONE TIME BM DURING THE SHIFT, MIN FWW, FALL PRECAUTION IN PLACE, NO DISTRESS NOTED, WILL KEEP TO MONITOR.
[2019-01-21 06:07] VITALS: BP 128/45
[2019-01-21 06:26] LABS: CALCIUM 8.1 mg/dL (8.5-10.1); CARBON DIOXIDE 23.9 mmol/L (21-32); CHLORIDE SERUM 107 mmol/L (98-107); CREATININE SERUM 0.9 mg/dL (0.7-1.3); GFR1 > 60 mL/min; GLUCOSE SERUM 243 mg/dL (74-106); MAGNESIUM 1.8 mg/dL (1.8-2.4); POTASSIUM SERUM 3.6 mmol/L (3.5-5.1); SODIUM SERUM 139 mmol/L (136-145)
--- NOTE | 2019-01-21 07:15 | NUR ---
RECIEVED PT RESTING IN BED WITH NO C/O PAIN, DISTRESS, OR SOB. TELE #22 CONNECTED TO PT. NS RUNNING IN RIGHT HAND AT 80ML/HR. INTACT AND PATENT WITH NO REDNESS. SAFETY PRECAUTIONS IN PLACE, CALL LIGHT WITHIN REACH, WILL MONITOR.
[2019-01-21 08:28] LABS: PLATELET COUNT 73 x10^3mcL (130-400); RED CELL DISTRIBUTION WIDTH 15.4 % (11.5-14.5)
[2019-01-21 09:25] VITALS: BP 118/52
[2019-01-21 10:36] LABS: BAND NEUTROPHIL 2 % (0-10); BASOPHIL 0 % (0-2); MONOCYTE 4 % (0-7); SEGMENTED NEUTROPHILS 82 % (37-75)
[2019-01-21 10:37] LABS: PLATELET MORPHOLOGY PLATELETS DECREASED; rbc morphology (normal/abnorm) ABNORMAL (NORMAL)
[2019-01-21 12:34] VITALS: BP 137/45
--- NOTE | 2019-01-21 12:49 | NUR ---
PT STABLE WITH NO C/O PAIN, DISTRESS, OR SOB. SAFETY PRECAUTIONS IN PLAC, CALL LIGHT WITHIN REACH, WILL CONT TO MONITOR.
--- NOTE | 2019-01-21 13:17 | NUR ---
SPOKE WITH DR. BONILLA- PATIENT UPDATE GIVEN. INFORMED DR. BONILLA THAT PER DEIRDRE Marcelo.[place] HE SAW PATIENT AND IS RECOMMENDING SNF FOR P.T. DR. BONILLA AT BEDSIDE TO SPEAK WITH PATIENT REGARDING PLAN OF CARE- INFORMED PATIENT P.T IS RECOMMENDING SNF FOR P.T BUT PATIENT REFUSED AT THIS TIME STATED "I CAN DO THAT AT HOME." WILL INFORM CASE MANAGEMENT.
--- NOTE | 2019-01-21 15:22 | NUR ---
PT RESTING IN BED. DENIES AN PAIN, DISTRESS, OR SOB. SAFETY PRECAUTIONS IN PLACE, CALL LIGHT WITHIN REACH, WILL MONITOR.
--- NOTE | 2019-01-21 15:48 | NUR ---
PHYSICAL THERAPY DAILY NOTES CO-SIGN All documentation done by the Internal Investigator for 01/21/19 has been reviewed. I agree with the documentation. Reviewed/Co-Signed by: Leanna Ngo PT Documentation Done by:JOSE REGALADO PTA
--- NOTE | 2019-01-21 17:47 | NUR ---
PT PULLED IV OUT ACCIDENTALLY, CATHETER FOUND OUTSIDE OF SKIN. NEW IV STARTED IN LEFT HAND 22 GUAGE, INTACT ANS PATENT. BOTH SITES FREE OF REDNESS OR INFLAMMATION.
--- NOTE | 2019-01-21 18:09 | NUR ---
PT STABLE AT THIS TIME, RESTING IN BED WITH NO C/O OF PAIN, DISTRESS, OR SOB. A/O X4. TELE #22 CONNECTED TO PT. DENIES CP OR PRESSURE. TOLERATED ALL CARES WELL. VS WNL. IV SITE INTACT AND PATENT WITH NO REDNESS OR INFLAMMATION. NS RUNNING AT 80ML/HR. SAFETY PRECAUTIONS IN PLACE, CALL LIGHT WITHIN REACH, WILL ENDORSE CARE TO NIGHT NURSE.
--- NOTE | 2019-01-21 19:30 | NUR ---
RECEIEVED PT FROM DAY SHIFT RN. PT IS ALERT AND ORIENTED X4 AND ABLE TO FOLLOW COMMANDS. CURRENTLY ON SZ PRECAUTIONS. PT DENIES SHORTNESS OF BREATH OR CHEST PAIN ON ROOM AIR. PT DENIES DIZZINESS OR HEADACHE. THERE ARE NO USE OF ACCESSORY MUSCLES OR LABORED BREATHING ON ASSESSMENT. TELE #[address] BLE DISCOLORATION NOTED. NO OPEN WOUNDS. THER IS A LEFT HAND 22G IV THAT IS CLEAN DRY AND INTACT AT THIS TIME WITH NS RUNNING AT 80ML/HR. SAFTEY MEASURES ARE IN PLACE. BED IS IN THE LOWEST POSITION. CALL LIGHT IS WITHIN REACH. WILL CONTINUE TO MONITOR PT.
[2019-01-21 21:29] VITALS: BP 165/74
--- NOTE | 2019-01-22 00:21 | NUR ---
PT FOUND WITH SMALL CUT TO HEEL. PT STATED THAT IT HAD BEEN CHUT PREVIOUSLY AND THAT IT HAD OPENED UP. PICTURES TAKEN. COVERED WITH ISLAND DRESSING. CDI..
[2019-01-22 05:42] VITALS: BP 135/56
[2019-01-22 06:57] LABS: CALCIUM 8.2 mg/dL (8.5-10.1); CARBON DIOXIDE 20.1 mmol/L (21-32); CHLORIDE SERUM 107 mmol/L (98-107); CREATININE SERUM 0.8 mg/dL (0.7-1.3); GFR1 > 60 mL/min; GLUCOSE SERUM 199 mg/dL (74-106); MAGNESIUM 1.8 mg/dL (1.8-2.4); SODIUM SERUM 141 mmol/L (136-145)
--- NOTE | 2019-01-22 08:00 | NUR ---
SHIFT ASSESSMENT DONE. PATIENT A/A/OX4. ANGELO FATIMA. ABLE TO MSDE NEEDS KNOWN. TELE#22; SR; HR= 76. DENIED CHEST PAIN. NO RESP DISTRESS ON RA. FINISHED 100% OF CCHO DIET BREAKFAST. NO N/V. HAD BM YESTERDAY. VOID VIA BRP. DENIED DYSURIA. IVF OF NS 80CC/HR; IV SITE TO L HAND INTACT. MULTIPLE SMALL WOUNDS TO RT FOOT/RT HEEL. DENIED PAIN, BROWN DISCOLORATION W/ EDEMA 1+ TO RLE NOTED. DENIED PAIN. CALL LIGHT IN REACH.
[2019-01-22 09:55] VITALS: BP 1143/60; BP 143/60
--- NOTE | 2019-01-22 11:55 | NUR ---
POTASSIUM 3.0 TODAY. LASIX 40MG PO HOLD. DR. BONILLA CALLED AND NOTIFIED. NEW ORDER OF KCL 40 MEQ PO GIVEN W/ LATE LASIX 40MG PO.
--- NOTE | 2019-01-22 12:30 | NUR ---
TEMP = 99.9 (ORAL); PAITENT C/O FEELING OF CHILL AND HEADACHE ON 08/24; TYLENOL 650MG PO AND COOLING MEASURE GIVEN.
[2019-01-22 12:45] VITALS: BP 160/67
--- NOTE | 2019-01-22 16:21 | NUR ---
PHYSICAL THERAPY DAILY NOTES CO-SIGN All documentation done by the Licensing Director for 01/22/19 has been reviewed. I agree with the documentation. Reviewed/Co-Signed by: Leanna Ngo PT Documentation Done by:JOSE REGALADO PTA
[2019-01-22 16:54] VITALS: BP 110/35
[2019-01-22 17:09] VITALS: BP 123/50
--- NOTE | 2019-01-22 18:00 | NUR ---
TEMP = 99.7; DR. BONILLA SAW PATIENT AND AWARE OF PATIENT'S TEMPERATURE. ORDER OF D/C TO HOME WRITTEN. IV D/C'D. OVER NEEDLE CATH INTACT. PHOTO TO RT FOOT/HEEL SKIN LESION TAKEN AND FILES. ISLAND DRSG APPLIED. DENIED PAIN. CONDITION STABLE. WAITING FOR FAMILY TO TEXTILE DYER.
[2019-04-13] MEDS ORDERED: LANTUS SOLOS100 U/M1 (15:41)
== END 2019-01-22 19:05 | disposition home health service (06) | DRG 871 ==
LOC: ED 12:03 → DU 17:12 → ED 17:12 → IC 17:12 → MU 01-19 17:14 → IC 01-19 17:18 → DU 01-19 19:00
PROVIDERS: Emergency Medicine; ADMIT Internal Medicine Pulmonary Disease
DX: A41.9 Sepsis, unspecified organism (principal); R65.21 Severe sepsis with septic shock; N39.0 Urinary tract infection, site not specified; Z68.42 Body mass index [BMI] 45.0-49.9, adult; E86.0 Dehydration; E87.6 Hypokalemia; E11.65 Type 2 diabetes mellitus with hyperglycemia; R54 Age-related physical debility; I10 Essential (primary) hypertension; E66.01 Morbid (severe) obesity due to excess calories; E11.69 Type 2 diabetes mellitus with other specified complication; F10.10 Alcohol abuse, uncomplicated; Z79.84 Long term (current) use of oral hypoglycemic drugs
CPT/HCPCS: 82962; 97110-GP; 97116-GP; 97530-GP; G0378; G0480; J0696; J1644; J1815; J7030; J7060; Q0092

== ENCOUNTER 2019-01-31 11:24 | Inpatient (IN) | payer OTHER ==
[~2019-01-31] VITALS: Ht 172.7 cm; Wt 135.2 kg
[2019-01-31 11:29] VITALS: Ht 172.7 cm; Wt 135.2 kg
--- NOTE | 2019-01-31 11:35 | NUR ---
pt bib adult male family from home for lower ext swelling x 1 week,and left arm twitching since last night.denies recent trauma/falls.awaits er md evaluations/assessments.kristin garcia.
--- NOTE | 2019-01-31 11:42 | NUR ---
MOOKIE MD AT BEDSIDE FOR EVALUATIONS/ASSESSMENTS.MAK RUSH.adult male family bedside.awaits reevaluations.
--- NOTE | 2019-01-31 11:55 | NUR ---
IV ACCESS STARTED ASEPTICALLY WITH BLOOD DRAWN/SENT TO LAB,FLUSHED WITH NS.PT TOLERATED procedures with no incidents.awaits test results,reevaluations.kristin garcia.
[2019-01-31 12:02] LABS: BASOPHIL % 1.4 % (0-2); PLATELET COUNT 162 x10^3mcL (130-400)
--- NOTE | 2019-01-31 12:10 | NUR ---
XRAY AT BEDSIDE.
[2019-01-31 12:20] LABS: BILIRUBIN TOTAL 0.8 mg/dL (0.20-1.00); CALCIUM 8.3 mg/dL (8.5-10.1); CARBON DIOXIDE 21.9 mmol/L (21-32); CREATININE SERUM 1.4 mg/dL (0.7-1.3); POTASSIUM SERUM 5.3 mmol/L (3.5-5.1); TOTAL PROTEIN, SERUM 7.9 g/dL (6.4-8.2)
--- NOTE | 2019-01-31 12:30 | NUR ---
ultrasound studies in progress.kristin garcia.awaits reevaluations.
--- NOTE | 2019-01-31 13:40 | NUR ---
PT ABLE TO USE URINAL WITH GOOD RESULTS.PT TOLERATED PROCEDURES WITH NO INCIDENTS.MAK RUSH.
--- NOTE | 2019-01-31 14:32 | NUR ---
ACCUCHEK OF 561,ER MD MADE AWARE.PT TOLERATED PROCEDURES WITH NO INCIDENTS.AWAITS REEVALUATIONS.MAK RUSH.
--- NOTE | 2019-01-31 15:32 | NUR ---
pt endorsed to/accepted by [facility].awaits transport services,reevaluations.
[2019-01-31] MEDS ORDERED: ENALAPRIL MALEA20 MG PO (15:33)
[2019-01-31] MEDS ORDERED: ATENOLOL100 MG PO (15:34)
[2019-01-31] MEDS ORDERED: CIPRO500 MG (15:35)
[2019-01-31] MEDS ORDERED: NOR10 PO (15:35)
[2019-01-31] MEDS ORDERED: FUROSEMIDE40 MG PO (15:35)
[2019-01-31] MEDS ORDERED: NOR10T PO (15:36)
[2019-01-31] MEDS ORDERED: TRAMADOL HCL50 MG PO (15:36)
[2019-01-31] MEDS ORDERED: KEPPRA500 MG PO (15:37)
[2019-01-31] MEDS ORDERED: HYDROXYZINE HYD25 MG PO (15:37)
[2019-01-31] MEDS ORDERED: NATURE'S BLEND F1 MG PO (15:37)
[2019-01-31] MEDS ORDERED: NITROFURANTOIN100 MG (15:37)
[2019-01-31 16:13] VITALS: BP 129/52
--- NOTE | 2019-01-31 16:27 | NUR ---
RECEIVED PT FROM ER, PT ADMIT FOR CHF, DM OUT OF CONTROL. PT IS A/O X4, VERBAL RESPONSIVE, ABLE TO TELL WHAT HE NEEDS. LUNG SOUND CLEAR JUSTIN, NO COUGH, NO SOB, PT IS ON TELE 20, NSR, DENY ANY CHEST PAIN OR DISCOMFORT, BOWEL SOUND PRESENT ALL 4 QUADRANTS, NO DISTENTION, NO TENDER. PEDAL PULSE PRESENT BOTH FEET, WEAK, +3 EDEMA BLE, RIGHT LOWER LEG RED DISCOLORATION, AND BOTTOM OF RIGHT FOOT TUOLUMNE SHAPE RED DISCOLORATION. IV AT RIGHT AC, NO LEAKING, NO INFILTRAITON. ALL ADLS ASSIST, ALL NEED MET, CALL LIGHT IN REACH, WILL CONTINUE TO MONITOR.
--- NOTE | 2019-01-31 16:29 | NUR ---
AT 1615 - RECEIVED PATIENT FROM ER NURSE. SETTLED IN BED. ORIENTED TO SURROUNDINGS AND PLACED ON CARDIAC MONITORING. ADMITTED WITH C/O BLE SWELLING. PATIENT IS ALERT AND ORIENTED. HISTORY AND INITIAL ASSESSMENT DONE BY ADMITTING NURSE. JUSTIN FEET WASHED AND PHOTO DOCUMENTED. NOTED AREA ON R FOOT, PLANTAR, OF WHAT LOOKS LIKE A BLOOD BLISTER. POSSIBLE PUNCTURE WOUND BELOW DARK RED BLISTER. BLE ELEVATED ON PILLOW. AT 1630 - CHARGE NURSE AWAITING CALL FROM DR ADHIKARI FOR ADMIT ORDERS.
--- NOTE | 2019-01-31 18:32 | NUR ---
AT 1730 - BLOOD GLUCOSE LEVEL 556. REPEAT LEVEL 522. PATIENT GIVEN 21 UNITS REGULAR INSULIN PER SLIDING SCALE AND CALL PLACED FOR DR ADHIKARI (DR PONCE LOCOMOTIVE ELECTRICIAN FOR HIM) AT 1752 - RECEIVED CALL FROM DR HO. NOTIFIED OF HIGH BLOOD GLUCOSE LEVEL. NO ADDITIONAL INSULIN REQUIRED AT THIS TIME. CONTINUE WITH ACCUCHECKS Q 4 HR. AT 1820 - COMMENCED IV INFUSION OF NS AT 50 ML/HR FOR 1 L. PATIENT HAVING GOOD DIURESIS FROM IV ADMINSITERED IN ER. TOTAL OF 1600 ML OUTPUT. PATIENT IS AWAKE, ALERT AND OREITNED. RESPIRATIONS REGULAR. NO C/O SOB OR PAIN. ENCOURAGED PATIENT TO KEEP LEGS ELEVATED. WILL ENDORSE CARE TO NIGHT NURSE.
--- NOTE | 2019-01-31 20:28 | NUR ---
IN BED AAO X4 VERBALIZED NEEDS, DENIES PAIN, ENCOURAGED TO ELEVATE BLE WITH A PILLOW, WITH BLE EDEMA WEAK PEDAL PULSES, VOIDING FREELY USES URINALS, DIURESING ON LASIX IVP, IVF NS INFUSING @ 50CC/HR, PT ELEVATED BS PER REPORT, 2I UNITS RI ADMINISTERED, NO S/SX OF HYPO/HYPERGLYCEMIA, TELE #20 INPLACED SR IN THE MONITOR, NO CP OR PRESSURES, SHIFT ASSESSMENT DONE, CALL LIGHT AT REACH, ATTENDED NEEDS, CONT TO MONITOR.
[2019-01-31 21:28] VITALS: BP 120/47
--- NOTE | 2019-02-01 01:29 | NUR ---
PT ASLEEP, NO SIGNIFICANT CHANGES, RECHECKED BS 257 MG/DL, VISUAL CHECKED AT INTERVALS.
[2019-02-01 05:20] VITALS: BP 117/48
--- NOTE | 2019-02-01 06:17 | NUR ---
PT CONTINUE OF LASIX IVP 40 MG, 2 OUT OF 3 ADMIN, DIURESING HAS 2OOO CC URINE OUTPUT, ENCOURAGED COMPLIANCE OF ELEVATING BLE FOR PRESSURE REDUCTION, BS TRENDING DOWN TO 256 MG/DL 9UNITS REG INSULIN GIVEN, WILL ENDORSE TO INCOMING SHIFT FOR F/U CARE.
[2019-02-01 06:22] LABS: BASOPHIL % 0.7 % (0-2)
--- NOTE | 2019-02-01 07:28 | NUR ---
RECEIVED PATIENT FROM NIGHT NURSE. AWAKE, ALERT AND ORIENTED X 4. MONITOR SHOWING SINUS RHYTHM; RATE 70'S. NO C/O PAIN. RESPIRATIONS REGULAR. LUNGS SOUND CLEAR. IV INFUSING NS AT 50ML/HR FOR 1 L ONLY. VOIDING PLAE YELLOW URINE IN URINAL. R FOOD WRAPPED IN ANABEL BANDAGE. PATIENT WAS SEEN BY PODIATRY.
[2019-02-01 07:38] LABS: PLATELET COUNT 129 x10^3mcL (130-400); RED CELL DISTRIBUTION WIDTH 14.9 % (11.5-14.5)
[2019-02-01 08:09] LABS: CALCIUM 7.3 mg/dL (8.5-10.1); CARBON DIOXIDE 24.8 mmol/L (21-32); CHLORIDE SERUM 108 mmol/L (98-107); GFR1 > 60 mL/min; GLUCOSE SERUM 256 mg/dL (74-106); SODIUM SERUM 142 mmol/L (136-145)
[2019-02-01 08:20] LABS: POTASSIUM SERUM 2.7 mmol/L (3.5-5.1)
--- NOTE | 2019-02-01 08:28 | NUR ---
RECEIVED CALL FROM LAB WITH K+ LEVEL OF 2.7. SPOKE WITH DR ADHIKARI PER PHONE AND RECEIVED FOLLOWING ORDERS: - KCL 60 MEQ PO X 1 - MG LEVEL - IF MG LEVEL BELOW NORMAL RANGE, ADMINSITER 2 GRAM MAGNESIUM IV.
[2019-02-01 08:55] VITALS: BP 127/45
--- NOTE | 2019-02-01 09:43 | NUR ---
AT 0910 - GIVEN 40 MEQ KCL PO. WILL ADMINSITER FURTHER 20 MEQ AT 1100 SCHEDULED BY PHARMACY; FOR K+ LEVEL OF 2.7 PATIENT C/O RLE PAIN. MEDICATED WITH NORCO PER EMAR. AT 0930 - SEEN BY DR ADHIKARI. RECEIVED ORDERS TO AMBULATE PATIENT.
[2019-02-01 10:01] VITALS: BP 120/53
--- NOTE | 2019-02-01 10:46 | NUR ---
COMMENCED 2 GRAM MAGNESIUM RIDER. TO INFUSE OVER 2 HRS FOR MG LEVEL OF 1.6
--- NOTE | 2019-02-01 12:22 | NUR ---
RECEIVED DISCHARGE ORDERS.
[2019-02-01 12:39] VITALS: BP 121/52
--- NOTE | 2019-02-01 13:29 | NUR ---
MG RIDER AND IV INFUSION OF 1 L NS, COMPLETED. IV SALINE LOCKED. PATIENT HAS RECEIVED 3RD AND LAST DOSE OF IV LASIX.
--- NOTE | 2019-02-01 13:49 | NUR ---
PATIENT'S SON WILLY, PER PHONE. FAMILY IS AWARE OF PLAN TO DISCHARGE PATIENT HOME THIS AFTERNOON. AND ANOTHER SON WITH PICK HIM UP AT [phone].
--- NOTE | 2019-02-01 15:07 | NUR ---
PATIENT AMBULATED IN HALLWAY, USING FW WALKER. NOTED R FOOT DRAGING, APPEARS TO HAVE FOOT DROP IN R FOOT. PATIENT INSTRUCTED TO TAKE CARE WHEN LIFTING AND PLACING DOWN R LEG. ENCOURAGED TO USE SLOW GAIT.
--- NOTE | 2019-02-01 16:55 | NUR ---
PRINTED DISCHARGE INSTRUCTIONS GIVEN AND EXPLAINED TO PATIENT AND SON. ALSO INSTRUCTED IN DAILY DRESSINGS TO R FOOT. DRESSING SUPPLIES PROVIDED. IV CATHETER REMOVED INTACT. PATIENT WANTS TO LEAVE WITHOUT EATING DINNER.
--- NOTE | 2019-02-01 17:18 | NUR ---
AT 1710 - DISCHARGED HOME WITH SON. TAKEN TO CAR IN WHEELCHAIR BY HERB DIGGER. PATIENT WAS TAKEN OFF CARDIAC MONITORING PRIOR TO DISCHARGE.
[2019-04-13] MEDS ORDERED: LANTUS SOLOS100 U/M1 (15:41)
== END 2019-02-01 17:07 | disposition home or self-care (01) | DRG 682 ==
LOC: ED 11:24 → DU 15:03
PROVIDERS: Emergency Medicine; ADMIT Internal Medicine
DX: N17.9 Acute kidney failure, unspecified (principal); I50.43 Acute on chronic combined systolic (congestive) and diastolic (congestive) heart failure; L97.411 Non-pressure chronic ulcer of right heel and midfoot limited to breakdown of skin; L03.115 Cellulitis of right lower limb; Z68.41 Body mass index [BMI] 40.0-44.9, adult; I11.0 Hypertensive heart disease with heart failure; E86.0 Dehydration; E11.621 Type 2 diabetes mellitus with foot ulcer; E11.65 Type 2 diabetes mellitus with hyperglycemia; R25.1 Tremor, unspecified; E87.6 Hypokalemia; F10.20 Alcohol dependence, uncomplicated; E66.01 Morbid (severe) obesity due to excess calories; Z79.82 Long term (current) use of aspirin; Z79.4 Long term (current) use of insulin; Z79.891 Long term (current) use of opiate analgesic
CPT/HCPCS: 82962; 83880; G0378; J1650; J1815; J1940; J3475; J7030; Q0092

== ENCOUNTER 2019-02-13 20:23 | Inpatient (IN) | payer OTHER ==
[~2019-02-13] VITALS: Ht 172.7 cm; Wt 142.4 kg
[~2019-02-13 20:23] MED LIST changes: +ATENOLOL100 MG PO; +CIPRO500 MG; +ENALAPRIL MALEA20 MG PO; +FUROSEMIDE40 MG PO; +HYDROXYZINE HYD25 MG PO; +NATURE'S BLEND F1 MG PO; +NITROFURANTOIN100 MG; +NOR10T PO
[2019-02-13 20:27] VITALS: Ht 172.7 cm; Wt 142.4 kg
--- NOTE | 2019-02-13 20:45 | NUR ---
PT PRESENTS TO ED WITH C/O SOB AND HEADACHE X 1 WEEK. PER PT HE WAS JUST DISCHARGED HERE A WEEK AGO. PT STATE SHE WENT HOME AND SINCE HE HAS BEEN HOME HE HAS BEEN FEELING INCREASINGLY MORE SOB. PT HAS PITTING EDEMA TO BL LOWER AND UPPER EXTREMITIES. PT HAS WEAK PULSES TO BILATERAL FEET WELL DIMINISHED BUT STILL PRESENT SENSATION TO FEET. PT HAS WOUND TO R HEAL THAT APPEARS TO BE IN THE HEALING STAGES WITH REDNESS FROM ABOVE THE ANKLE DOWN THE WHOLE FOOT. PT HAS CRACKLES IN BL BASES OF LUNGS AND DIMUINISHED IN ALL OTHER LUNG BRAXTON. PT DENIES USING OXYGEN AT HOME BUT STATES THAT HE FEELS SOB AND IS UNABLE TO LAY DOWN ANYMORE WITHOUT IT BEING TOO HARD FOR HIM TO BREATHE. PT STATES HE HAS A HOSPITAL BED AT HOME AND SLEEPS SITTING UPRIGHT. PT ALSO STATES INCREASED SOB WHEN WALKING. PT PRESENTED TO ED BY HIMSELF TODAY. PT ALSO IS VERY UNAWARE OF HIS MEDICAL DIAGNOSIS AND WHAT HE IS BEING TREATED FOR. PT STATES HE NEVER READ HIS DISCHARGE INSTRUCTIONS BECAUSE HE "DOESNT READ IN [place]". PT AXO X4. PT SPEAKING IN CLEAR, SHORT 2 TO 3 WORD SENTENCES. PT IS INCREASINGLY SOB WITH MOVEMENT. PT IN VIEW OF THE NURSES STATION WITH CURTAIN OPEN AND CALL LIGHT WITHIN REACH. PT CONNECTED TO FULL CM AND PULSE OX MONITORS. AWAITING FURTHER ORDERS AT THIS TIME
--- NOTE | 2019-02-13 20:56 | NUR ---
EDA ULLOA AT BEDSIDE FOR EKG
--- NOTE | 2019-02-13 21:24 | NUR ---
CALL LIGHT WITHIN REACH
[2019-02-13 21:27] LABS: BASOPHIL % 0.8 % (0-2); PLATELET COUNT 103 x10^3mcL (130-400); RED CELL DISTRIBUTION WIDTH 16.4 % (11.5-14.5)
[2019-02-13] MEDS ORDERED: APAP/HYDROCODON1 T13 PO (21:31)
--- NOTE | 2019-02-13 21:54 | NUR ---
X RAY AT BEDSIDE
[2019-02-13 22:01] LABS: CALCIUM 8.6 mg/dL (8.5-10.1); CARBON DIOXIDE 21.5 mmol/L (21-32); CHLORIDE SERUM 98 mmol/L (98-107); CREATININE SERUM 1.4 mg/dL (0.7-1.3); GFR1 54 mL/min; GLUCOSE SERUM 150 mg/dL (74-106); POTASSIUM SERUM 3.9 mmol/L (3.5-5.1); SODIUM SERUM 131 mmol/L (136-145)
[2019-02-13 22:06] LABS: ALKALINE PHOSPHATASE 70 U/L (46-116); ALT/SGPT 8 U/L (16-63); AST/SGOT 25 U/L (15-37); BILIRUBIN TOTAL 0.8 mg/dL (0.20-1.00); TOTAL PROTEIN, SERUM 7.9 g/dL (6.4-8.2)
--- NOTE | 2019-02-13 22:06 | NUR ---
RT AT BEDSIDE FOR BLOOD GAS
[2019-02-13 22:08] LABS: ALBUMIN 2.2 g/dL (3.4-5.0)
[2019-02-13 23:22] LABS: UA SPECIFIC GRAVITY <=1.005 (1.005-1.035); microscopic required? YES; urine erythrocyte 3+ (NEGATIVE)
--- NOTE | 2019-02-13 23:45 | NUR ---
REPORT GIVEN TO DAVINA THORNTON
[2019-02-14] VITALS (8 sets, daily range): BP systolic 123–138; BP diastolic 52–76
--- NOTE | 2019-02-14 00:47 | NUR ---
RECEIVED PT FROM ER, PT ADMIT FOR CHF,. PT IS A/O X4, VERBAL RESPONSIVE, LUNG SOUND DIM JUSTIN. LABOR BREATHING, PT UNABLE FINISHED WHOLE SENTENCE WHILE TALKING. PT IS ON 5L/MIN O2 VIA NC. PO2 93% AT THIS MOMENT, PT IS ON TELE 5, NSR, DENY ANY CHEST PAIN OR DISCOMFORT, BOWEL SOUND PRESENT ALL 4 QUADRANTS, NO DISTENTION, NO TENDER. PEDAL PULSE WEAK, +3 EDEMA BLE. RIGHT FOOT DARK DISCOLORATION. IV AT RIGHT AC, NO LEAKING, NO INFILTRATION. ALL ADLS ASSIST, ALL NEED MET, CALL LIGHT IN REACH, WILL CONTINUE TO MONITOR.;
--- NOTE | 2019-02-14 01:56 | NUR ---
PT ASLEEP NO DISTRESS 0N 4L 02/NC, DIM LUNGS SOUND BILAT BASES, BLE ELEVATED WITH PILLOW, SR IN THE MONITOR, VISUAL CHECKED AT INTERVALS.
--- NOTE | 2019-02-14 02:09 | NUR ---
TYLENOL 650 MG PO GIVEN FOR C/O HEADACHE 11/24, CONT TO MONITOR.
--- NOTE | 2019-02-14 05:54 | NUR ---
NORCO PO GIVEN FOR HEADACHE AND BODY PAIN, SINCE TYLENOL GIVEN EARLIER OFFERS ONLY SHORT RELIEF, NO DISTRESS V/S STABLE AND RECORDED, RECHECKED BLD SUGAR, 111MG/DL NO S/SX OF HYPOGLYCEMIA, PT HAS HX OF DM, NOTED EXPIRATORY WHEEZES ON PHYSICAL EXERTION, CONT TO MONITOR.
--- NOTE | 2019-02-14 07:45 | NUR ---
PATIENT SITTING UP, A/OX4 ABLE TO MAKE NEEDS KNOWN AND FOLLOW COMANDS. DENIES HEADACHE OR DIZZINESS. EQUAL CLOUD ENGAGEMENT PARTNER STRENGTH, SPEECH CLEAR. TELE [address] READING SR[address] LUNGS DIM BILAT, ORTHOPNEA NOTED AND REPORTS SOB UPON EXERTION. 5L NC IN PLACE READING 96%. PERIPHERAL PULSES PALPABLE, EDEMA TO BLE +3. DENIES NUMBNESS/TINGLING/PAIN. BOWEL SOUNDS ACTIVE, DENIES N/V. VOIDS TO URINAL CLEAR YELLOW. DISCOLORATION NOTED TO RT FOOT. BSC IN PLACE. IV ACCES TO RAC SITE WNL. CALL LIGHT WITHIN REACH.
[2019-02-14 07:47] LABS: CALCIUM 8.4 mg/dL (8.5-10.1); CARBON DIOXIDE 24.2 mmol/L (21-32); CHLORIDE SERUM 102 mmol/L (98-107); CREATININE SERUM 1.2 mg/dL (0.7-1.3); GFR1 > 60 mL/min; GLUCOSE SERUM 113 mg/dL (74-106); MAGNESIUM 1.9 mg/dL (1.8-2.4); SODIUM SERUM 136 mmol/L (136-145)
--- NOTE | 2019-02-14 15:44 | NUR ---
PATIENT C/O SEVERE HEADACHE 9/10 AND NAUSEA, AND REQUESTING FOR PAIN MED. NORCO AND ZOFRAN GIVEN. PATIENT ALSO REPORTS FEELING SOB AND REQUESTING FOR BREATHING TREATMENT. O2 SAT ON 5L NC/HUMIDIFIER 96% BREATHING SOMEWHAT LABORED, MILD EXP WHEEZING AUDIBLE, OTHERWISE LUNGS CLEAR/DIM TO AUSCULTATION. RT MARILEE AT BEDSIDE FOR BREATHING TREATMENT. WILL CONT TO MONITOR.
--- NOTE | 2019-02-14 18:15 | NUR ---
PATIENT SLEEPING, EASILY ARROUSABLE. A/OX4, DENIES DIZZINESS AND HEADACHE. EQUAL UNDERLINER, SPEECH CLEAR. NO SIGNIFICANT CHANGE IN NEUROCHECKS THROUGHOUT SHIFT. DENIES CP. LUNGS DIM BILAT, LABORED UPON EXERTION, MILD EXP WHEEZING AT TIMES THROUGHOUT SHIFT. PATIENT STATES FEELING BETTER THAN THIS MORNING. DENIES NAUSEA. O2 WEENING DOWN TOLERATED PER RT, NOW ON 4L NC W/ HUMIDIFIER O2 SAT 93%. DENIES FEELING SOB AT THIS TIME. EDEMA TO BLE'S 3+, DARK DISCOLORATION TO RT FOOT. PASSING GAS AND STATES HE FEELS LIKE HE WILL HAVE A BM SOON. VOIDS TO URINAL, STRICT I&O DOCUMENTED. IV ACCESS TO [facility] SITE WNL AND PATENT. GOWN CHANGED, SCD'S AND REINFORCED TO UTILIZE WHEN RESTING, PATIENT VERBALIZED UNDERSTANDING. SITTING UP NOW EATING DINNER MEAL. CALL LIGHT WITHIN REACH. WILL CONT TO MONITOR AND ENDORSE TO NOC NURSE.
--- NOTE | 2019-02-14 19:22 | NUR ---
RECEIVED PT SEATED UP IN BED BLE DANGLING DOWN ENCOURAGED TO ELEVATE BLE, NO DISTRESS, PT CLAIMED FEELING MUCH BETTER COMPARED YESTERDAY, ABLE TO TALK FULL SENTENCE WITHOUT GRASPING FOR AIR, ON 4L 02/ SATURATING 95% DENIES PAIN WITH OCC INSPIRATORY WHEEZES RT PROT FOR TX, TELE #5 INPLACED SR IN THE MONITOR, NO CP OR PRESSURE, VOIDED WITH NO DIFFICULTY USING URINAL, YELLOW COLORED URINE OUTPUT, ON LASIX ORDERED, AAO X4 ABLE TO VERBALIZED NEEDS, IV ACCESS @ RAC PATENT NON INFIL, SHIFT ASSESSMENT DONE, CALL LIGHT AT REACH CONT TO MONITOR.
--- NOTE | 2019-02-14 22:05 | NUR ---
PT BLD SUGAR 223 MG/DL COVERED WITH 6 UNITS REG INSULIN PER SLIDING SCALE, NO C/O PAIN.
--- NOTE | 2019-02-15 00:35 | NUR ---
NORCO PO GIVEN PER PRN ORDER FOR PAIN, PT C/O BACK PAIN 11/24 PER ASSESSMENT NO DISTRESS, SR IN THE MONITOR, V/S STABLE, ALSO CLAIMED CAN'T SLEEP, WILL OBSERVE IF NORCO WILL HELP PT AND BE ABLE TO SLEEP, HE WILL CALL IF SLEEPING PILLS NEEDED, CALL LIGHT AT REACH.
--- NOTE | 2019-02-15 00:43 | NUR ---
PT ASKING FOR SLEEPING PILLS, YRNIEN PO GIVEN PER PRN ORDER, ROOM LIGHT ON DIM, CALL LIGHT AT REACH.
[2019-02-15 06:16] VITALS: BP 121/58
--- NOTE | 2019-02-15 07:13 | NUR ---
SLEPT WELL DURING THE SHIFT, TOLERATING 3L 02/NC, SATURATING 93 TO 96%, NO CP OR PRESSURE, NO SIGNIFICANT CHANGES, ENDORSED TO ONCOMING NURSE.
--- NOTE | 2019-02-15 07:20 | NUR ---
RECEIVED REPORT, A/OX4 ABLE TO MAKE NEEDS KNOWN AND FOLLOW COMANDS. DENIES HEADACHE OR DIZZINESS. EQUAL WET ROOM SUPERVISOR STRENGTH, SPEECH CLEAR. TELE [address] READING SR. LUNGS DIM BILAT, ORTHOPNEA NOTED AND REPORTS SOB UPON EXERTION. 3L NC IN PLACE READING 93%. PERIPHERAL PULSES PALPABLE, EDEMA TO BLE +3. DENIES NUMBNESS/TINGLING/PAIN. BOWEL SOUNDS ACTIVE, DENIES N/V. VOIDS TO URINAL CLEAR YELLOW. DISCOLORATION NOTED TO RT FOOT. BSC IN PLACE. IV ACCES TO RAC SITE WNL. CALL LIGHT WITHIN REACH.
[2019-02-15 07:31] LABS: CALCIUM 8.3 mg/dL (8.5-10.1); CARBON DIOXIDE 28.1 mmol/L (21-32); CHLORIDE SERUM 108 mmol/L (98-107); CREATININE SERUM 1.2 mg/dL (0.7-1.3); GFR1 > 60 mL/min; GLUCOSE SERUM 199 mg/dL (74-106); POTASSIUM SERUM 4.6 mmol/L (3.5-5.1); SODIUM SERUM 142 mmol/L (136-145)
[2019-02-15 09:22] VITALS: BP 127/53
--- NOTE | 2019-02-15 11:30 | NUR ---
DR DAVE WAS AT BEDSIDE, PATIENT NOW TOLERATING 2L NC W/ HUMIDIFIER 95%. REPORTED TO DR DAVE PATIENT GETS PT. SNF WAS RECOMMENDED BY PT BUT PATIENT REFUSES TO GO TO PT AND PT "IT DOESNT HELP ME". PATIENT LYING IN BED TO COMFORT, BED AT LOWEST POSITION. CALL LIGHT WITHIN REACH.
[2019-02-15 13:05] VITALS: BP 119/65
--- NOTE | 2019-02-15 16:32 | NUR ---
PATIENT C/O HEADACHE, TYLENOL GIVEN. DENIES FEELING SOB OR ANY DISCOMFORT ON 2L NC. URINAL EMPTIED. WILL CONT TO MONITOR.
[2019-02-15 17:11] VITALS: BP 132/58
--- NOTE | 2019-02-15 19:20 | NUR ---
REPORT GIVEN TO NOC NURSE, PATIENT REPOSITIONED IN BED TO COMFORT AND SAFETY. CALL LIGHT WITHIN REACH. DIVISIONAL STOREKEEPER NOW AT BEDSIDE ASSISTING PATIENT TO BSC. CARE ENDORSED.
--- NOTE | 2019-02-15 20:00 | NUR ---
LATE ENTRY: PT. BETWEEN SLEEP AND WAKE. LAYING ALF ON BED WITH HIS RT. FOOT DANGLING OVER THE SIDE. PT. EASY TO WAKE. PT. DENIES ANY PAIN OR DISCOMFORT AT THIS TIME. PT. STATED THAT HE IS COMFORTABLE AT TIMES IN THAT POSITION. PT. MADE AWARE OF SAFETY CONCERNS AND FALL RISKS. PT. ASSISTED BACK TO BED AND MADE COMFORTABLE. BREATH SOUNDS DIMINISHED JUSTIN LUNG BRAXTON, RESP. EVEN, UNLABORED. NO SOB NOTED. PT. ON 2L/NC. ABD. SOFT AND ROUND, OBESE. BOWEL SOUNDS ACTIVE. DENIES ABD. PAIN, DENIES NAUSEA. BLE W/ +2-3 EDEMA, NON-PITTING. BLE DUKE COLRED, DISCOLORED W/ MODERATE PEDAL PULSES. IV SITE INTACT TO RAC. CALL LIGHT WITHIN REACH.
[2019-02-15 20:50] VITALS: BP 127/67
--- NOTE | 2019-02-16 00:15 | NUR ---
PT. SITTING UP IN BED. DENIES ANY PAIN OR DISCOMFORT. REMAINS ON 2L/NC. NO RESP. DISTRESS. CALL LIGHT WITHIN REACH.
--- NOTE | 2019-02-16 04:47 | NUR ---
PT. AWAKE, COMPLAINING THAT HE CANNOT BREATHE. RESP. RATE INCREASED TO 26. O2 SAT. LEVEL CHECKED, 98% ON 2L/NC. RT MADE AWARE. BREATHING TREATMENT INITIATED AT THIS TIME. RT AT BEDSIDE. WILL MONITOR.
--- NOTE | 2019-02-16 05:02 | NUR ---
PT. STATED THAT HIS BREATHING IMPROVED A LOT AFTER BREATHING TREATMENT. O2 LEVEL WAS KEPT AT 3L/NC PER RESP. AT THIS TIME. RESP. RATE DOWN TO 22. PT. WAS C/O HEADACHE AND PRN TYLENOL WAS GIVEN. WILL CONTINUE TO MONITOR.
[2019-02-16 05:03] VITALS: BP 152/86
[2019-02-16 06:30] LABS: CALCIUM 8.2 mg/dL (8.5-10.1); CARBON DIOXIDE 28.2 mmol/L (21-32); CHLORIDE SERUM 106 mmol/L (98-107); GFR1 > 60 mL/min; GLUCOSE SERUM 169 mg/dL (74-106); MAGNESIUM 1.9 mg/dL (1.8-2.4); POTASSIUM SERUM 4.3 mmol/L (3.5-5.1); SODIUM SERUM 142 mmol/L (136-145)
--- NOTE | 2019-02-16 07:15 | NUR ---
RECEIVED A BEDSIDE REPORT. SEEN RESTING IN BED AAOX4. ON O2 3LPM N/C. GEN BODY WEAKNESS WITH OBESITY. 3+EDEMA TO BLE WITH DARK DISCOLORATION/DRY TO RLE. DIMINISHED LUNG SOUND. ON CCHO DIET. URINAL/BSC AT BEDSIDE. S/L TO RAC INTACT. CALL LIGHT PLACED WITHIN EASY REACH. SIDERAILS UP X2.
[2019-02-16 08:41] VITALS: BP 110/54
--- NOTE | 2019-02-16 09:15 | NUR ---
AM SCHEDULED MEDS GIVEN. IVPB ROCEPHIN INFUSING WELL TO RAC IV SITE. STATED PAIN TO BLE IS TOLERABLE AT THIS TIME. ENCOURAGED PATIENT TO TURN AND REPOSITION TOLERATE. STATED ABLE TO GET OUT OF BED TO USE BSC. O2 3LPM N/C MAINTAINED.
[2019-02-16 11:52] VITALS: BP 111/63
--- NOTE | 2019-02-16 12:42 | NUR ---
SITTING ON THE EDGE OF BED HAVING LUNCH. NO ANY DISTRESS NOTED. HOT TEA PROVIDED PER REQUESTED.
[2019-02-16 14:09] VITALS: BP 124/61
--- NOTE | 2019-02-16 14:11 | NUR ---
SEEN BY DOCTOR DAVE AT BEDSIDE. PATIENT REQUESTED TO BE DISCHARGED HOME STATED IF NOT TODAY THEN NOBODY IS AVAILABLE TO PICK HIM UP. REMOVED O2 N/C, O2SAT 92% NO SOB NOTED. DOCTOR CHANGE MADE AWARE.
--- NOTE | 2019-02-16 15:40 | NUR ---
RECHECKED PATIENT O2SAT AFTER O2 N/C DISCONTINUED O2SAT =88% WITH SHORTNESS OF BREATH, O2 2LPM N/C MAINTAINED O2SAT= 93%. DOCTOR JOLIE NOTIFIED BY FLEXIBLE BABYSITTER JANE.
--- NOTE | 2019-02-16 16:25 | NUR ---
RECEIVED ABG RESULT, CALLLED AND INFORMED TO DR. DAVE. PER DR. DAVE, HE WILL CONTACT PATIENT'S PROGRAM SCHEDULE CLERK FROM [employer] TO ARRANGE HOME O2 AT 2LPM VIA N/C.
[2019-02-16 17:05] VITALS: BP 157/79
--- NOTE | 2019-02-16 18:30 | NUR ---
PATIENT STATED HE ACCIDENTLY HIT HIS RIGHT BIG TOE ON THE EDGE OF BED. NOTED SMALL LACERATION TO RIGHT GREAT TOE, CLEANED WITH NS, WOUND PHOTO TAKE, DRSG APPLIED.
--- NOTE | 2019-02-16 19:15 | NUR ---
CARE ASSUMED FROM OUTGOING RN. PT SITTING UP AT SIDE OF BED TALKING TO SON ON THE PHONE. DAY SHIFT RN SPOKE TO SON UPDATING SON ON POC WITH DISCHARGE PENDING DUE TO HOME O2 DELIVERY. PT AND SON VERBALIZED UNDERSTANDING. NO ACUTE DISTRESS NOTED. EVEN AND UNLABORED RESPIRATIONS ON 2LNC. NO C/O SOB AT THIS TIME. ON TELE# 5 READING SR 78 WITH BORDERLINE BBB. IVL INTACT. BED IN LOWEST POSITION. SIDE RAILS UPX2. CALL LIGHT WITHIN REACH. WILL CONTINUE TO MONITOR.
[2019-02-16 20:31] VITALS: BP 111/78
--- NOTE | 2019-02-16 21:30 | NUR ---
BED BATH PROVIDED WITH AID FROM GOLF CLUB HEAD INSPECTOR. GOWN AND LINEN CHANGED. PT TOLERATED FAILY, C/O SOB DURING EXERTION, ON 2LNC. URINAL EMPTIED. BED IN LOWEST POSITION. SIDE RAILS UPX2. CALL LIGHT WITHIN REACH. WILL CONTINUE TO MONITOR.
--- NOTE | 2019-02-17 00:28 | NUR ---
PT RESTING IN BED. C/O DIFFICULTY STAYING ASLEEP, MEDICATED PER EMAR, NOT EFFECTIVE. HEADACHE SLOWLY RESOLVING AFTER MEDICATIONS. NECK PAIN STILL PRESENT. EVEN AND UNLABORED RESPIRATIONS ON 2LNC. ON TELE #5 READING SR 78 WITH BORDERLINE BBB. BED IN LOWEST POSITION. SIDE RAILS UPX2. CALL LIGHT WITHIN REACH. WILL CONTINUE TO MONITOR.
[2019-02-17 05:30] VITALS: BP 139/71
--- NOTE | 2019-02-17 06:46 | NUR ---
PT SLEPT IN INTERVALS THROUGHOUT THE SHIFT. ALL NEEDS TENDED TO AND MET. ALL SCHEDULED MEDICATIONS GIVEN. C/O INSOMNIA AND HEADACHE MEDICATED PER EMAR. EVEN AND UNLABORED RESPIRATION ON 2LNC WHEN AT REST, C/O SOB UPON EXERTION. BLOOD SUGARS CHECKED, 245 AND 214, COVERED PER SLIDING SCALE. LACERATION TO RIGHT BIG TOE, CLEANED AND BANDAID PLACED, CDI. BED IN LOWEST POSITION. SIDE RAILS UPX2. CALL LIGHT WITHIN REACH. WILL ENDORSE TO ONCOMING SHIFT.
[2019-02-17 07:02] LABS: CARBON DIOXIDE 31.4 mmol/L (21-32); CHLORIDE SERUM 103 mmol/L (98-107); GFR1 > 60 mL/min; GLUCOSE SERUM 215 mg/dL (74-106); MAGNESIUM 1.7 mg/dL (1.8-2.4); POTASSIUM SERUM 3.8 mmol/L (3.5-5.1); SODIUM SERUM 140 mmol/L (136-145)
--- NOTE | 2019-02-17 07:05 | NUR ---
RECEIVED PT FROM NIGHT NURSE. PT IS SITTING UP IN BED. PT LOOKS TO BE IN NO ACUTE DISTRESS AT THIS TIME AND DENIES ANY PAIN. RESPIRATIONS EVEN AND UNLABORED ON 2L NC. PT DENIES ANY DIFFICULTY BREATHING AT THIS TIME. TELE MONITOR 5 PRESENT. BED IN LOWEST POSITION, CALL LIGHT WITHIN REACH. WILL CONTINUE TO MONITOR.
[2019-02-17 07:48] VITALS: BP 154/72
[2019-02-17 12:14] VITALS: BP 141/66
--- NOTE | 2019-02-17 14:14 | NUR ---
PT COMPLAINING OF A HEADACHE AND FEELING NAUSEATED AT THIS TIME. WILL MEDICATE ACCORDING TO EMAR.
--- NOTE | 2019-02-17 14:28 | NUR ---
PT REQUESTING A SPOT CHECK OF BLOOD SUGAR, CURRENT SUGAR AT 350.
[2019-02-17 16:25] VITALS: BP 116/70
--- NOTE | 2019-02-17 18:44 | NUR ---
PT IS SITTING UP AT THE EDGE OF THE BED. PT LOOKS TO BE IN NO ACUTE DISTRESS AND DENIES ANY PAIN AT THIS TIME. IV SITE PATENT WITH NO SIGNS OF ERYTHEMA OR SWELLING WITH IV H/L. RESPRIATIONS EVEN AND UNLABORED ON 2L NC. DISCOLORATION NOTED TO RLE AND SWELLING NTED TO BLE. BSC AND URINAL AT BEDSIDE. CALL LIGHT WITHIN REACH. WILL ENDORSE TO ONCOMING SHIFT.
[2019-02-17 19:23] VITALS: BP 112/61
--- NOTE | 2019-02-17 20:14 | NUR ---
SPOKE WITH PT'S SON WILLY, STATES PT'S HOME O2 EQUIPMENT NOT DELIVERED AT THIS TIME. WILL FOLLOW UP WITH MOHINI
--- NOTE | 2019-02-17 20:16 | NUR ---
SPOKE WITH LISBETH FROM [facility] REGARDING DELIVERY FOR HOME O2 EQUIPMENT. SHE STATES TO DEFINITE ETA, WILL BE DELIVERED SOME TIME TODAY. WILL FOLLOW UP NEEDED
--- NOTE | 2019-02-17 21:48 | NUR ---
PER PT'S SON WILLY, HOME O2 DELIVERED, EXCEPT FOR ONE PIECE THAT [employer] STATES WILL BE DELIVERED TOMORROW. PER WILLY, SOMEONE WILL BE HERE TO TAKE FATHER HOME SHORTLY. WILL ANTICIPATE
--- NOTE | 2019-02-17 22:55 | NUR ---
PT D/C VIA WHEELCHAIR ACCOMPANIED BY DATA WAREHOUSE ADMINISTRATOR. NO ACUTE DISTRESS OBSERVED, BREATHING ON 2L NC, EVEN AND UNLABORED. ALL PAPERWORKS SIGNED AND PLACED IN CHART. ALL BELONGINGS WITH PT. IV D/C WITH CATH INTACT. TELE #5 REMOVED AND RETURNED TO BIOCHEMISTRY TECHNOLOGIST.
[2019-04-13] MEDS ORDERED: LANTUS SOLOS100 U/M1 (15:41)
== END 2019-02-17 22:54 | disposition home or self-care (01) | DRG 291 ==
LOC: ED 20:23 → DU 23:21
PROVIDERS: Emergency Medicine; ADMIT Internal Medicine Pulmonary Disease
DX: I11.0 Hypertensive heart disease with heart failure (principal); G93.41 Metabolic encephalopathy; E66.2 Morbid (severe) obesity with alveolar hypoventilation; Z68.41 Body mass index [BMI] 40.0-44.9, adult; I50.33 Acute on chronic diastolic (congestive) heart failure; E11.9 Type 2 diabetes mellitus without complications; R09.02 Hypoxemia; F10.20 Alcohol dependence, uncomplicated
CPT/HCPCS: 36600; 82962; 83880; 97116-GP; 97530-GP; G0378; J0696; J1940; J2405; J7040; J7620; Q0092

== ENCOUNTER 2019-02-25 04:54 | Inpatient (IN) | payer OTHER ==
[~2019-02-25] VITALS: Ht 185.4 cm; Wt 127.6 kg
[2019-02-25] VITALS (13 sets, daily range): BP systolic 95–131; BP diastolic 44–68
[~2019-02-25 04:54] MED LIST changes: +APAP/HYDROCODON1 T13 PO
--- NOTE | 2019-02-25 05:00 | NUR ---
PT BIB [facility] FOR SOB. PER MEDIC, PT WAS AT HOME AND PT'S FAMILY CALLED REPORTING PT HAVING DIFF BREATHING AND SITTING IN TRIPOD POSITION. FAMILY STATED PT IS PRESCRIBED HOME OXYGEN FOR UNK REASONS, BUT IS NOT USING IT. PER MEDIC, PT PRESENTED PALE AND DIAPHORETIC ON SCENE, SATURATING IN 70'S EN ROUTE. PT PRESENTS TO ED PALE AND DIAPHORETIC. PT WEARING CPAP. PT SCANNING ROOM W/ EYES, UNABLE TO ANSWER QUESTIONS. PT PLACED ON GENERAL HANDLING SUPERVISOR AND PULSE OX. MD AT BEDSIDE. RT AT BEDSIDE.
--- NOTE | 2019-02-25 05:03 | NUR ---
20MG ATOMIDATE GIVEN IVP PER MD ORDER 80MG ROCURONIUM GIVEN IVP PER MD ORDER
--- NOTE | 2019-02-25 05:05 | NUR ---
ET TUBE PLACE BY MD PRANEETH SUMMERS 24 AT [facility] 7.5 IT[place] RT AT BEDSIDE BAGGING PT
--- NOTE | 2019-02-25 05:08 | NUR ---
EKG IN PROGRESS
--- NOTE | 2019-02-25 05:15 | NUR ---
LAB AT BEDSIDE FOR DRAW
--- NOTE | 2019-02-25 05:32 | NUR ---
X-RAY AT BEDSIDE
[2019-02-25 05:38] LABS: CALCIUM 8.7 mg/dL (8.5-10.1); CARBON DIOXIDE 22.3 mmol/L (21-32); CHLORIDE SERUM 106 mmol/L (98-107); CREATININE SERUM 1.2 mg/dL (0.7-1.3); GFR1 > 60 mL/min; GLUCOSE SERUM 269 mg/dL (74-106); POTASSIUM SERUM 3.1 mmol/L (3.5-5.1); SODIUM SERUM 141 mmol/L (136-145)
[2019-02-25 05:42] LABS: PLATELET COUNT 159 x10^3mcL (130-400); RED CELL DISTRIBUTION WIDTH 16.1 % (11.5-14.5)
[2019-02-25 05:43] LABS: ALKALINE PHOSPHATASE 143 U/L (46-116); ALT/SGPT 9 U/L (16-63); AST/SGOT 26 U/L (15-37); BILIRUBIN TOTAL 0.76 mg/dL (0.20-1.00)
[2019-02-25 05:44] LABS: ALBUMIN 2.7 g/dL (3.4-5.0); TOTAL PROTEIN, SERUM 9.4 g/dL (6.4-8.2)
--- NOTE | 2019-02-25 06:03 | NUR ---
INFORMED LAB OF ADDED BLOOD CULTURE ORDERS.
--- NOTE | 2019-02-25 06:05 | NUR ---
VERDEN DRIP STARTED RSS 6
--- NOTE | 2019-02-25 06:11 | NUR ---
LAB AT BEDSIDE TO DRAW CULTURES
--- NOTE | 2019-02-25 06:28 | NUR ---
PT MOVING, NODDING WHEN ASKING IF IN PAIN. VERSED DRIP TITRATED UP 1MG/HR, TO A TOTAL OF 2MG/HR.
--- NOTE | 2019-02-25 06:32 | NUR ---
NITRO DRIP TITRATED DOWN TO 60MCG/HR PER MD ORDER FOR SBP <120
--- NOTE | 2019-02-25 06:37 | NUR ---
RSS 3
--- NOTE | 2019-02-25 06:58 | NUR ---
PT MOVING HANDS, TRACKING WITH EYES. VERSED DRIP TITRATED UP TO 3MG/HR PER MD ORDER. RSS 3
--- NOTE | 2019-02-25 07:03 | NUR ---
PT MOVING HANDS, TRYING TO VOIVE WORDS. PT NODS YES WHEN ASKED IF IN PAIN. RESIDENT PAGED TO BE MADE AWARE.
--- NOTE | 2019-02-25 07:19 | NUR ---
TRIED CALLING ICU TO GIVE REPORT. ICU STS THEY CANNOT RECIEVE REPORT AT THIS TIME
--- NOTE | 2019-02-25 07:23 | NUR ---
REPORT GIVEN TO ALEE THORNTON
--- NOTE | 2019-02-25 07:24 | NUR ---
PT WITH EYES OPEN, ATTEMPTING TO MOVE ARMS. VERSED INCREASED TO 4MG, WILL CONT TO MONITOR.
--- NOTE | 2019-02-25 07:32 | NUR ---
REPORT GIVEN TO LITO THORNTON, UPDATED ON STATUS, LABS AND VITALS. PT STABLE FOR TRANSFER.
--- NOTE | 2019-02-25 08:07 | NUR ---
PT TRANSFERRED TO ICU BED 6, REPORT GIVEN TO LITO THORNTON. PT STABLE FOR TRANSFER, BP 95/51, RT AT BEDSIDE. IV DRIPS AND VANCO INFUSING. SEE EMAR.
--- NOTE | 2019-02-25 08:53 | NUR ---
NITRO LOWERED TO 50 MCG/HR, PATIENT B/P LOW: 90/ 49 . WILL CONTINUE TO MONITOR.
--- NOTE | 2019-02-25 09:02 | NUR ---
NITRO TITRATED DOWN TO 40 MCG/HR. WILL CONTINUE TO MONITOR.
--- NOTE | 2019-02-25 09:17 | NUR ---
NITRO TITRATED DOWN TO 30 MCG/HR AT THIS TIME. PATIENTS B/p 84/51 MAP:62
--- NOTE | 2019-02-25 09:31 | NUR ---
NITRO TITRATED DOWN TO 20 MCG/HR. PATIENT B/P TRENDING DOWN. WILL CONTINUE TO MONITOR.
--- NOTE | 2019-02-25 10:00 | NUR ---
NITRO LOWERED TO 10 MCG/HR AT THIS TIME. WILL CONTINUE TO MONITOR.
--- NOTE | 2019-02-25 10:15 | NUR ---
VERSED LOWERED TO 2 MG/HR AT THIS TIME. PATIENT STABLE, WILL CONTINUE TO MONITOR.
--- NOTE | 2019-02-25 10:38 | NUR ---
NITRO OFF AT THIS TIME. PATIENT STABLE WILL CONITNUE TO MONITOR. B/P: 91/63 MAP:68
--- NOTE | 2019-02-25 10:42 | NUR ---
PLACED CO2 MONITOR ON PT AT THIS TIME.
--- NOTE | 2019-02-25 12:15 | NUR ---
VERSED OFF AT THIS TIME, PER DR. BAPTISTE. PROPOFOL INITIATED AT THIS TIME. WILL CONTINUE TO MONITOR.
--- NOTE | 2019-02-25 12:25 | NUR ---
PROPOFOL STARTED AT THIS TIME, 5 MCG/KG/MIN. WILL CONTINUE TO MONITOR.
--- NOTE | 2019-02-25 13:27 | NUR ---
TUBE FEEDINGS STARTED AT THIS TIME, GLUCERNA, 1.2. STARTED AT 20 ML/HR WITH 50 FWF Q12. WILL CONTINUE TO MONITOR.
[2019-02-25 13:29] LABS: ALKALINE PHOSPHATASE 96 U/L (46-116); ALT/SGPT 9 U/L (16-63); AST/SGOT 26 U/L (15-37); BILIRUBIN TOTAL 0.7 mg/dL (0.20-1.00); CALCIUM 8.4 mg/dL (8.5-10.1); CARBON DIOXIDE 22.9 mmol/L (21-32); CHLORIDE SERUM 109 mmol/L (98-107); CREATININE SERUM 1.2 mg/dL (0.7-1.3); GFR1 > 60 mL/min; GLUCOSE SERUM 301 mg/dL (74-106); MAGNESIUM 1.9 mg/dL (1.8-2.4); POTASSIUM SERUM 3.9 mmol/L (3.5-5.1); SODIUM SERUM 141 mmol/L (136-145); TOTAL PROTEIN, SERUM 7.2 g/dL (6.4-8.2)
[2019-02-25 13:30] LABS: ALBUMIN 2.1 g/dL (3.4-5.0)
--- NOTE | 2019-02-25 13:35 | NUR ---
DR NEWTON, RENAL DR AT BEDSIDE. ALL UPDATES GIVEN. PER DR NEWTON, NO NEED TO START LASIX DRIP, SINCE THE URINE OUTPUT IS STABLE RIGHT NOW. NO NEW ORDERS. WILL CONTINUE TO MONITOR PATIENT.
--- NOTE | 2019-02-25 14:36 | NUR ---
PT CONTINUOUSLY BITING ON ETT. PROPFOL TITRATED TO 10 MCG/KG/MIN. WILL CONT TO MONITOR.
--- NOTE | 2019-02-25 14:41 | NUR ---
DR. CULVER IN UNIT AND PROVIDED UPDATES BY NURSING. NO FURTHER ORDERS AT THIS TIME. WILL CONT TO MONITOR.
[2019-02-25] MEDS ORDERED: FUROSEMIDE40 MG PO (15:44)
[2019-02-25] MEDS ORDERED: ENALAPRIL MALEA20 MG PO (15:45)
[2019-02-25] MEDS ORDERED: SIMVASTATIN40 M1 PO (15:46)
[2019-02-25] MEDS ORDERED: CARVEDILOL3.125 M1 PO (15:46)
[2019-02-25] MEDS ORDERED: ATENOLOL100 MG PO (15:46)
[2019-02-25] MEDS ORDERED: POTASSIUM CHLO10 MEQ (15:50)
[2019-02-25] MEDS ORDERED: PAROXETINE HCL20 M1 GT (15:51)
[2019-02-25] MEDS ORDERED: TRAMADOL HCL50 MG (15:51)
[2019-02-25] MEDS ORDERED: TRAZODONE50 M1 PO (15:52)
--- NOTE | 2019-02-25 17:03 | NUR ---
PATIENT BUCKING THE VENT AT THIS TIME. PROPOFOL INCREASED TO 15 MCK/KG/MIN. WILL CONTINUE TO MONTIOR.
--- NOTE | 2019-02-25 17:04 | NUR ---
PATIENT BUCKING THE VENT AT THIS TIME. PROPOFOL INCREASED TO 15 MCG/KG/MIN. WILL CONTINUE TO MONITOR.
--- NOTE | 2019-02-25 18:20 | NUR ---
PATIENT STABLE AT THIS TIME, WITH NO SIGNS OF DISTRESS. WILL CONTINUE TO MONITOR.
--- NOTE | 2019-02-25 19:08 | NUR ---
REPORT GIVEN TO NORBERTO ZUNIGA. ALL QUESTIONS ANSWERED.
--- NOTE | 2019-02-25 19:41 | NUR ---
REC'D REPORT FROM SUSAN THORNTON TO ASSUME CARE. PT INTUBATED AND SEDATED ON PROPOFOL 15 MCG/KG/MIN WITH RSS 5. PERRLA NOTED. 7.5 ETT, 23 CM @ LL SECURED. TRACHEA MIDLINE. NO JVD NOTED. VAP CARE PROVIDED PER PROTOCOL. ETT TO VENT: AC MODE RATE 20, TV 500, PEEP 10, FIO2 30%. CHEST RISE EQUAL AND SYMMETRICAL. LUNG SOUNDS COARSE CRACKLES BUL, DIM BASES. DIRECTOR OF TECHNOLOGY IN PLACE SHOWING SB. S1 S2 AUSCULATED. CHEST WALL STABLE. BP 108/60 MAP 76, HR 54. PULSES PALPABLE X4. CAP REFILL < 3 SECS. BLE 1+ PITTING EDEMA. IV TO LAC AND RAC INTACT AND PATENT. TF GLUCERNA INFUSING @ 50ML/HR, FWF 50ML Q12H, GRV=5ML REPLACED. TOLERATING WELL. NO S/SX OF N/V. ABD ROUND, SOFT, NONTENDER TO TOUCH. BOWEL SOUNDS ACTIVE. NO BM NOTED. F/C INTACT AND DRAINING VIA GRAVITY YELLOW URINE. NO SCROTAL EDEMA NOTED. NO PENILE DISCHARGE NOTED. BLE SKIN DISCOLORATION NOTED. GEN WEAKNESS NOTED. TURNED AND REPOSITIONED Q2H FOR PRESSURE RELIEF. BUE SOFT WRIST RESTRAINTS IN PLACE FOR PT SAFETY. ALL NEEDS MET AT THIS TIME. WILL CONTINUE TO MONITOR.
--- NOTE | 2019-02-25 20:00 | NUR ---
PROPOFOL TITRATED DOWN TO 13 MCG/KG/MIN FOR RSS 5.
--- NOTE | 2019-02-25 20:30 | NUR ---
PT SEEN WITH EYES OPEN, ABLE TO FOLLOW COMMANDS. PT ABLE TO ANSWER SIMPLE QUESTIONS BY NODDING HEAD YES OR NO. PT ASKED TO BE REPOSITIONED AT THIS TIME.
--- NOTE | 2019-02-25 23:00 | NUR ---
PT SEEN SLEEPING COMFORTABLY AT THIS TIME. NO S/SX OF PAIN PER FLACC SCALE.
[2019-02-26] VITALS (18 sets, daily range): BP systolic 100–129; BP diastolic 41–74
--- NOTE | 2019-02-26 03:20 | NUR ---
PTS VENT HIGH PRESSURING, SUCTIONED AT THIS TIME. PT AWAKE AND POINTING AT MOUTH. ASKED IF PT HAS DRY MOUTH, PT GESTURED YES. VAP CARE PROVIDED AT THIS TIME.
--- NOTE | 2019-02-26 04:59 | NUR ---
TOTAL BED BATH PROVIDED WITH CHG WIPES, F/C CARE PROVIDED, LINENS CHANGED. REPOSITIONED TO COMFORT. PT AWAKE AND ABLE TO FOLLOW COMMANDS. ABLE TO TURN WITH ASSIST.
[2019-02-26 05:03] LABS: PLATELET COUNT 87 x10^3mcL (130-400); RED CELL DISTRIBUTION WIDTH 16.5 % (11.5-14.5)
[2019-02-26 05:22] LABS: BILIRUBIN TOTAL 0.45 mg/dL (0.20-1.00); CALCIUM 8.1 mg/dL (8.5-10.1); CREATININE SERUM 1.3 mg/dL (0.7-1.3); MAGNESIUM 1.8 mg/dL (1.8-2.4); POTASSIUM SERUM 3.5 mmol/L (3.5-5.1); TOTAL PROTEIN, SERUM 6.8 g/dL (6.4-8.2)
[2019-02-26 05:29] LABS: ALBUMIN 2.1 g/dL (3.4-5.0)
--- NOTE | 2019-02-26 07:05 | NUR ---
REPORT GIVEN TO SUSAN THORNTON TO ASSUME CARE.
--- NOTE | 2019-02-26 07:45 | NUR ---
DR. PATEL AT BEDSIDE, ALL UPDATES GIVEN. PER DR. PATEL, SHE WILL CHANGE LASIX ORDER TO Q 12. WILL AWAIT ORDER.
--- NOTE | 2019-02-26 08:30 | NUR ---
DR. DECKER AT BEDSIDE. ALL UPDATES PROVIDED. RT AT BEDSIDE. PER DR DECKER, LOWER PEEP TO 5 AND START CPAP. RT AWARE. WILL CONTINUE TO MONITOR.
--- NOTE | 2019-02-26 08:55 | NUR ---
PROPOFOL OFF AT THIS TIME, PENDING CPAP TRIAL.
--- NOTE | 2019-02-26 09:10 | NUR ---
DR. CULVER AT BEDSIDE. ALL UPDATES PROVIDED. NO NEW ORDERS AT THIS TIME.
--- NOTE | 2019-02-26 09:11 | NUR ---
CPAP STARTED AT THIS TIME. PATIENT STABLE, WILL CONTINUE TO MONITOR.
--- NOTE | 2019-02-26 10:27 | NUR ---
PATIENT OFF OF CPAP AT THIS TIME. PATIENT SHOWS SIGNS OF ANXIETY. OXYGENATION SATURATION TRENDING DOWN. RT AT BEDSIDE, MADE AWARE. PATIENT STABLE, WILL CONTINUE TO MONITOR.
--- NOTE | 2019-02-26 10:28 | NUR ---
PROPOFOL RESTARTED AT THIS TIME, 15 MCG/KG/MIN. WILL CONTINUE TO MONITOR.
--- NOTE | 2019-02-26 10:31 | NUR ---
PATIENT IS RESTLESS AND SHOWS SIGNS OF DISTRESS, SEDATION INCREASED TO 20 MCG/KG/MIN. WILL CONTINUE TO MONITOR.
--- NOTE | 2019-02-26 11:48 | NUR ---
Initial Nutrition Assessment: IC06/A JUAN MORSE IA HR Dx: CHF, Hypoxia PMHx: CAD, CHF, HTN, DM PSHx: none Labs: BG 182H, BUN 19H, ALB 2.1L Meds: Ativan , coreg, D 50%, humulin, Lasix, magnesium sulfate, morphine, Zofran, heparin Diet: TF ([place]) Glucerna 1.2 @ 20 ml/hr, goal 50 ml/hr, FWF 50 ml Q12H PO Intake: NPO Ht: 185.42 cm (73") Wt: 130 kg (286#) BMI: 37.8 kg/m2 Bed scale: 130 kg IBW: 184# (84 kg) %IBW: 155 UBW: unable to access as pt was sedated Age: 64/M Food Allergies: NKFA Skin: BLE skin discoloration Girma: 12 Edema: trace BLE GI: Last BM: 02/24 Per H&P, Pt is a 64 M PMH HF, DM, HTN, presented to the ED in hypoxic respiratory failure with o2 saturations below 40%, and was placed on NIV with improvement to 60% range. RDN Visit (02/26): Pt intubated, sedated on propofol @ 13 mcg/kg/min. Patient is on vent. Spoke with RN Velma, she said that patient has an NG tube and not an NJ tube. Glucerna 1.2 was running at goal rate of 50 ml/hr. Patient is tolerating it well with no residuals. Problem with: N/V/D/C: none per RN Problems with: Chewing/Swallowing: yes, NG tube Current appetite: unable to access Recent wt change: unable to access %wt change: n/a Vitamin/Supplement use: unable to access Special diet at home: unable to access Physical activity: unable to access Nutrition education given: not possible at this time Food-drug interactions: Lasix- increase K, Mg intake Education given: n/a Estimated Nutritional Needs Based on adjusted body weight 96 kg Energy: 2617 vs 1052-3970 kcal/d (PSU 2002 vs 25-30kcal/kg) Protein: 84-101 g/d (1.0-1.2 g/kg/IBW)- preserve LBM Fluid: 8886-9984 ml/d (1 ml/kcal) or per doctor Nutrition Diagnosis 1. Morbid obesity related to possible increased energy intake as evidence dby BMI 37.8 kg/m2 2. Inadequate enteral nutrition infusion related to low TF rate as evidenced by current TF rate not meeting 75% of estimated calorie and protein needs. Intervention 1. Recommend continuing Glucerna 1.2 @ 50 ml/hr as patient is receiving calories through propofol running @ 13 mcg/kg/min. Monitor/Evaluate Goal: TF intake at least 75% of estimated needs Monitor: TF intake/ tolerance, Labs, GI function F/U in 2-3 days as high risk 02/28-
--- NOTE | 2019-02-26 11:48 | NUR ---
1. Recommend continuing Glucerna 1.2 @ 50 ml/hr as patient is receiving calories through propofol running @ 13 mcg/kg/min.
--- NOTE | 2019-02-26 12:12 | NUR ---
PT STABLE AT THIS TIME, WITH NO SIGNS OF DISTRESS. WILL CONTINUE TO MONITOR.
--- NOTE | 2019-02-26 13:23 | NUR ---
TITRATED PROPOFOL DOWN TO 15 MCG/KG/MIN, PATIENTS B/P LOW: 112/48 MAP: 62. WILL CONTINUE TO MONITOR.
--- NOTE | 2019-02-26 13:45 | NUR ---
TUBE FEED CHANGED AT THIS TIME. WILL CONTINUE TO MONITOR.
--- NOTE | 2019-02-26 18:08 | NUR ---
PATIENT IN BED RESTING COMFORTABLY, NO DISTRESS NOTED. WILL CONTINUE TO MONITOR.
--- NOTE | 2019-02-26 19:21 | NUR ---
REC'D REPORT FROM SUSAN THORNTON TO ASSUME CARE. PT INTUBATED AND SEDATED ON PROPOFOL 15 MCG/KG/MIN WITH RSS 4. PERRLA NOTED. 7.5 ETT, 23 CM @ LL SECURED. TRACHEA MIDLINE. NO JVD NOTED. VAP CARE PROVIDED PER PROTOCOL. ETT TO VENT: AC MODE RATE 20, TV 500, PEEP 10, FIO2 30%. CHEST RISE EQUAL AND SYMMETRICAL. LUNG SOUNDS COARSE CRACKLES BUL, DIM BASES. MEDICAL CLAIMS EXAMINER IN PLACE SHOWING SB. S1 S2 AUSCULATED. CHEST WALL STABLE. BP 108/60 MAP 76, HR 54. PULSES PALPABLE X4. CAP REFILL < 3 SECS. BLE 1+ PITTING EDEMA. IV TO LAC AND RAC INTACT AND PATENT. TF GLUCERNA INFUSING @ 50ML/HR, FWF 50ML Q12H, GRV=5ML REPLACED. TOLERATING WELL. NO S/SX OF N/V. ABD ROUND, SOFT, NONTENDER TO TOUCH. BOWEL SOUNDS ACTIVE. NO BM NOTED. F/C INTACT AND DRAINING VIA GRAVITY YELLOW URINE. NO SCROTAL EDEMA NOTED. NO PENILE DISCHARGE NOTED. BLE SKIN DISCOLORATION NOTED. GEN WEAKNESS NOTED. TURNED AND REPOSITIONED Q2H FOR PRESSURE RELIEF. BUE SOFT WRIST RESTRAINTS IN PLACE FOR PT SAFETY. ALL NEEDS MET AT THIS TIME. WILL CONTINUE TO MONITOR.
--- NOTE | 2019-02-26 20:24 | NUR ---
PT GESTURING PAIN BY NODDING YES. MEDICATED WITH MORPHINE IVP PER MD ORDER.
--- NOTE | 2019-02-26 20:24 | NUR ---
PT ASKED IF IN PAIN, PT GESTURED YES, MORPHINE IVP GIVEN PER MD ORDER.
--- NOTE | 2019-02-26 20:30 | NUR ---
PTS SON AT BEDSIDE, UPDATED ON STATUS, ALL QUESTIONS AND CONCERNS ADDRESSED.
--- NOTE | 2019-02-26 23:00 | NUR ---
PTS TEMP 100.5F, COOLING MEASURES AND TYLENOL PROVIDED AT THIS TIME. WILL CONTINUE TO MONITOR.
--- NOTE | 2019-02-26 23:50 | NUR ---
TEMP RECHECKED, 99.6. COOLING MEASURES IN PLACE.
[2019-02-27] VITALS (16 sets, daily range): BP systolic 99–133; BP diastolic 40–81
--- NOTE | 2019-02-27 04:16 | NUR ---
TOTAL BED BATH PROVIDED, NO BM NOTED, ALL LINENS CHANGED, F/C CARE PROVIDED, VAP CARE PROVIDED. PT REPOSITIONED AT THIS TIME.
[2019-02-27 05:44] LABS: BASOPHIL % 0.8 % (0-2)
[2019-02-27 05:52] LABS: PLATELET COUNT 78 x10^3mcL (130-400); RED CELL DISTRIBUTION WIDTH 16.4 % (11.5-14.5)
[2019-02-27 05:55] LABS: BILIRUBIN TOTAL 0.41 mg/dL (0.20-1.00); CALCIUM 8.1 mg/dL (8.5-10.1); CARBON DIOXIDE 27.9 mmol/L (21-32); CREATININE SERUM 1.3 mg/dL (0.7-1.3); MAGNESIUM 1.8 mg/dL (1.8-2.4); POTASSIUM SERUM 3.3 mmol/L (3.5-5.1); TOTAL PROTEIN, SERUM 6.8 g/dL (6.4-8.2)
[2019-02-27 05:59] LABS: IRON 24 ug/dL (65-170); TOTAL IRON BINDING CAPACITY 167 ug/dL (250-450)
--- NOTE | 2019-02-27 06:58 | NUR ---
BP 99/37 MAP 56, LEVOPHED INCREASED TO 30MCG/MIN.
--- NOTE | 2019-02-27 07:12 | NUR ---
REPORT GIVEN TO LANA THORNTON TO ASSUME CARE.
--- NOTE | 2019-02-27 09:06 | NUR ---
DR DECKER AT BEDSIDE TO ASSESS PATIENT. UPDATES PROVIDED BY NURSING. CPAP TOLERATED AND CALL WITH WEANING PARAMETERS.
--- NOTE | 2019-02-27 09:20 | NUR ---
PT SEEN REST ON BED. PT IS INTUBATED ON VENT AC MODE, SEDATED ON PROPOFOL AT 15MCG/KG/MIN. PT IS AROUSED AND OPENED EYES SPONTANEOUS VIA AUDITORY STIMULI. PER PLAN, PT IS GOING TO WEANING PROCESS, DECREASED PROPOFOL TO 12MCG/KG/MIN. WORKMAN IN PLACE, DRAINING VIA GRAVITY, URINE COLOR LEONARDO AT THIS TIME. PT ON GLUCERNA NGT FEEDING AT 50ML/HR WFW 50ML Q12H. WILL CONTINUE TO MONITOR. JUSTIN WRIST SOFT RESTRAINTS ON, CIRCULATION WNL.
--- NOTE | 2019-02-27 10:32 | NUR ---
RT AT BEDSIDE PUT PT ON CPAP. DECREASED PROPOFOL FROM 12MCG/KG/MIN TO 9 MCG/KG/MIN. PT IS AWAKE, ALET, FOLLOW COMMAND, FIO2 AT 40%. O2 SAT 95%.
--- NOTE | 2019-02-27 12:40 | NUR ---
PATIENT WITH RESPIRATIONS 38. PATIENT GESTURED HE WAS TIRED WHEN ASKED. PATIENT RETURNED BACK TO AC MODE RATE 20, VT 500, PEEP 5, FIO2 30%. PROPOFOL TITRATED BACK UP TO 15 MCG/MIN.
--- NOTE | 2019-02-27 12:42 | NUR ---
KEKE KENDALL AT BEDSIDE AND MADE AWARE THAT PATIENT BACK ON AC MODE.
--- NOTE | 2019-02-27 12:45 | NUR ---
PT RR AROUD 35, FEELING TIRED. PT IS BACK ON AC MODE WITH FIO2 AT 30%.
--- NOTE | 2019-02-27 19:36 | NUR ---
PT'S REPORT GIVEN TO COMING NURSE. PT BREATHING ON VENT AC MODE. PT TOLERATE WELL ON CURRENT FEEDING RATE, NO RESIDUAL. WORKMAN IN PLACE, 2L URINE OUT THROUGH SHIFT. PROPOFOL INFUSING AT 15MCG/KG/MIN.
--- NOTE | 2019-02-27 19:45 | NUR ---
RECEIVED REPORT FROM NORBERTO PETERSON. PT IS INTUBATED AND SEDATED ON PROPOFOL. PT IS ALERT AND RESPONSIVE TO VERBAL STIMULUS. PT IS BREATHING E/U ON VENT. SETTINGS INCLUDE RATE: 20, TV: 500, O2: 30%, PEEP: 5. LUNG SOUNDS CLEAR TO BILATERAL UPPER LOBES, DIMINISHED TO BILATERAL LOWER LOBES. S1 S2 HEART SOUNDS AUSCULTATED. CAP REFILL <3 SECS X4. SKIN IS WARM AND CONSISTENT WITH ETHNICITY. PULSES MODERATE X4. PERIPHERAL IV TO RIGHT AC AND LEFT AC PATENT, DRESSING CDI. ABD IS SOFT AND ROUNDED WITH ACTIVE BOWEL SOUNDS X4Q. GLUCERNA INFUSING AT 50 ML/HR TOLERATING WELL. WORKMAN DRAINING VIA GRAVITY. URINE YELLOW WITH FAIR OUTPUT. BILATERAL SOFT WRIST RESTRAINTS FOR SAFETY. ALL QUESTIONS AND CONCERNS ANSWERED.
[2019-02-28] VITALS (14 sets, daily range): BP systolic 103–132; BP diastolic 42–76
--- NOTE | 2019-02-28 02:01 | NUR ---
PROPOFOL DOES NOT SEEM TO BE HELPING THE PATIENT WITH SEDATION. KEEPS BUCKING VENT. PRN ATIVAN PROVIDED TO PATIENT.
--- NOTE | 2019-02-28 04:43 | NUR ---
PROVIDED FULL BED BATH TO PATIENT, INCLUDING WORKMAN CARE, VAP CARE, AND CHANGED OUT ALL SUCTION TUBING. FULL LINEN CHANGE DONE. PT TOLERATED WELL.
[2019-02-28 04:59] LABS: BASOPHIL % 0.9 % (0-2)
[2019-02-28 05:01] LABS: PLATELET COUNT 90 x10^3mcL (130-400); RED CELL DISTRIBUTION WIDTH 16.5 % (11.5-14.5)
[2019-02-28 05:09] LABS: ALBUMIN 2.1 g/dL (3.4-5.0); ALKALINE PHOSPHATASE 90 U/L (46-116); ALT/SGPT 6 U/L (16-63); AST/SGOT 17 U/L (15-37); CARBON DIOXIDE 26.8 mmol/L (21-32); CHLORIDE SERUM 111 mmol/L (98-107); CREATININE SERUM 1.1 mg/dL (0.7-1.3); GFR1 > 60 mL/min; GLUCOSE SERUM 233 mg/dL (74-106); POTASSIUM SERUM 3.7 mmol/L (3.5-5.1); SODIUM SERUM 147 mmol/L (136-145); TOTAL PROTEIN, SERUM 7.5 g/dL (6.4-8.2)
--- NOTE | 2019-02-28 05:30 | NUR ---
TITRATED PROPOFOL FROM 15 MCG/KG/MIN TO 16 MCG/KG/MIN FOR INCREASED AGITATION.
--- NOTE | 2019-02-28 07:00 | NUR ---
PATIENT CALM AND COOPERATIVE WITH CARE. ALL RESTRAINTS REMOVED AT THIS TIME. PATIENT VERBALIZED AN UNDERSTANDING OF MEDICATION COMPLIANCE AND AGREES WITH POC. PATIENT SERVED BREAKFAST AND SITTING IN CHAIR BEDSIDE. PERSONAL HYGIENE PRODUCTS SUPPLIED.
--- NOTE | 2019-02-28 07:11 | NUR ---
GAVE REPORT TO NORBERTO PETERSON. ALL QUESTIONS AND CONCERNS ANSWERED.
--- NOTE | 2019-02-28 07:12 | NUR ---
DR. ADHIKARI AT BEDSIDE FOR UPDATES. ALL QUESTIONS AND CONCERNS ANSWERED.
--- NOTE | 2019-02-28 07:41 | NUR ---
RT BEDSIDE PUT PT ON CPAP WEANING. TITRATED PROPOFUL FROM 15MCG TO 10 MCG/KG/MIN.
--- NOTE | 2019-02-28 07:45 | NUR ---
RECEIVED PT'S REPORT FROM LEAVING NURSE. PT IS RESTING AND SEDATED ON PROPOFOL 15 MCG/KG/MIN. AROUSED VIA VERBAL STIMULI AND FOLLOW COMMAND. PT BREATHING ON VENT AC MODE. NGT IN PLACE, GLUCERNA TUBE FEEDING AT 50ML/HR WFW 50 ML Q12H. WORKMAN IN PLACE, DRAINING VIA GRAVITY. PT IS ON JUSTIN SOFT WRIST RESTRAINTS.
--- NOTE | 2019-02-28 08:18 | NUR ---
PT APPEARS COMFORTABLE ON VENT. RN WEANED DOWN SEDATION. PT PLACED ON CPAP AT 0740 ON PS 5, PEEP 5. PTS RR IMMEDIATELY WENT FROM LOW TWENTIES TO LOW THIRTIES. PT WAS COACHED ON SLOW BREATHING. WILL CONTINUE TO MONITOR PT ON CPAP.
--- NOTE | 2019-02-28 10:56 | NUR ---
PT IS MORE AWAKE AND REQUEST TO TRY CPAP AGAIN. HOLD SEDATION PROFOL. RT PUT PT BACK ON CPAP MODE. WILL CONTINUE TO MONITOR.
--- NOTE | 2019-02-28 11:21 | NUR ---
PATIENT WITH RESIPRATIONS 40. PATIENT PLACED BACK ON AC MODE. ARIEL KENDALL MADE AWARE.
--- NOTE | 2019-02-28 12:04 | NUR ---
ON CPAP MODE, PT SHOWING TACHYPENIC RR >30, TITAL VOLUME AROUND 300. PT GETTING FATIGUE. RT KEKE PUT PT BACK ON AC MODE. RESUME PROPOFOL AT 10MCG/KG/MIN.
--- NOTE | 2019-02-28 16:25 | NUR ---
SEDATION PROPOFOL HELD AT THIS TIME. FULL BATH GIVEN. PT IS AWAKE, ALERT, FOLLOWING COMMAND. RT PUT PT BACK ON CPAP WEANING MODE.
--- NOTE | 2019-02-28 17:46 | NUR ---
ZOFRAN 4MG GIVEN PER PRN TO MANAGE NAUSEA.
--- NOTE | 2019-02-28 18:27 | NUR ---
PT IS BACK ON VENT AC MODE. PT TOLERATE WELL, PROPOFOL IS HELD AT THIS TIME. PT IS OFF RESTRAINTS AT THIS TIME. WILL ENDORSE PT'S CARE TO COMING NURSE.
--- NOTE | 2019-02-28 19:30 | NUR ---
PROVIDED PT WITH PRN MORPHINE AND ATIVAN, DILUTED WITH 10 ML OF NS TO EACH SYRINGE FOR INCREASED GAGGING, COUGHING, AND SETTING OFF THE VENTILATOR. PT REQUESTING "SOMETHING TO HELP HIM SLEEP". WILL CONTINUE TO MONITOR.
--- NOTE | 2019-02-28 19:30 | NUR ---
RECEIVED REPORT FROM NORBERTO PETERSON. PT IS ALERT AND RESPONSIVE TO COMMANDS. PT IS INTUBATED WITH NO SEDATION. 7.5 ETT AT 23 [address] PUPILS 3 MM AND BRISK BILATERALLY. PT IS BREATHING E/U ON VENT. SETTINGS INCLUDE RATE: 20, TV: 500, O2: 30%, PEEP: 5. LUNG SOUNDS CLEAR TO BILATERAL UPPER LOBES, DIMIINSHED TO BILATERAL LOWER LOBES. S1 S2 HEART SOUNDS AUSCULTATED. PULSES MODERATE X4. CAP REFILL <3 SECS X4. SKIN IS WARM AND CONSISTENT WITH ETHNICITY. PERIPHERAL IV TO RIGHT AND LEFT AC, PATENT, DRESSING CDI. PROPOFOL INFUSING AT AT 16 MCG/KG/MIN. ABD SOFT AND ROUNDED WITH ACTIVE BOWEL SOUNDS X4Q.RNGT PATENT AND INTACT. GLUCERNA INFUSING AT 50 ML/HR WITH 10 ML OF RESIDUAL. WORKMAN DRAINING VIA GRAVITY. URINE IS LEONARDO WITH FAIR OUTPUT. WILL CONTINUE TO MONITOR.
--- NOTE | 2019-02-28 23:02 | NUR ---
DR. WHITTINGTON AT BEDSIDE FOR UPDATES. ALL QUESTIONS AND CONCERNS ANSWERED. ORDERED THAT THE TUBE FEEDING FLUSHES BE MADE FOR 100 ML Q3HRS. AND THAT I FLUSH THE WORKMAN CATHETER WITH 200 ML OF URINE. WILL CONTINUE TO MONITOR.
[2019-03-01] VITALS (7 sets, daily range): BP systolic 106–126; BP diastolic 51–61
--- NOTE | 2019-03-01 | NUR ---
DECREASED PROPOFOL FROM 15 MCG/KG/MIN TO 11 MCG/KG/MIN FOR RASS OF -4. WILL CONTINUE TO MONITOR.
--- NOTE | 2019-03-01 04:30 | NUR ---
PT PROVIDED WITH FULL BED BATH, WORKMAN CARE, AND VAP CARE. ALL SUCTION EQUIPMENT CHANGED OUT. PT TOLERATED WELL.
[2019-03-01 05:41] LABS: PLATELET COUNT 98 x10^3mcL (130-400); RED CELL DISTRIBUTION WIDTH 16.5 % (11.5-14.5)
--- NOTE | 2019-03-01 05:45 | NUR ---
FISH CULTURIST AT BEDSIDE FOR CXR.
[2019-03-01 05:54] LABS: BAND NEUTROPHIL 4 % (0-10); MONOCYTE 10 % (0-7); SEGMENTED NEUTROPHILS 52 % (37-75)
[2019-03-01 05:56] LABS: PLATELET MORPHOLOGY PLATELETS DECREASED; ovalocyte/elliptocyte 1+; rbc morphology (normal/abnorm) ABNORMAL (NORMAL)
[2019-03-01 06:05] LABS: CALCIUM 8.5 mg/dL (8.5-10.1); CARBON DIOXIDE 27.8 mmol/L (21-32); CHLORIDE SERUM 114 mmol/L (98-107); CREATININE SERUM 1.2 mg/dL (0.7-1.3); GFR1 > 60 mL/min; GLUCOSE SERUM 261 mg/dL (74-106); MAGNESIUM 2.2 mg/dL (1.8-2.4); PHOSPHOROUS 4.5 mg/dL (2.5-4.9); SODIUM SERUM 149 mmol/L (136-145)
--- NOTE | 2019-03-01 07:34 | NUR ---
PT AWAKE BUT SLEEPY. PLACED ON CPAP PS 10, PEEP 5. PT IN NO ACUTE DISTRESS. WILL MONITOR ON CPAP AND PERFORM WEANING PARAMETERS AFTER 1-2 HOURS. RN NOTIFIED.
--- NOTE | 2019-03-01 07:53 | NUR ---
RECEIVED PT. PT IS OFF SEDATION, EASILY AROUSED BY VERBAL STIMULI WITH EYES OPEN SPONTANEOUS. PT IS ON CPAP MODE, PSV 10, PEEP 5, FIO2 30%, RR 20. GLUCERNA NGT FEEDING AT 50ML, WFW 100ML Q3H. WORKMAN IN PLACE, DRAINING VIA GRAVITY, YELLOW URINE. WILL CONTINUE TO MONITOR.
--- NOTE | 2019-03-01 08:32 | NUR ---
PATIENT WITH RESPIRATIONS 48 AND HR 110. PATIENT REMOVED FROM CPAP AND PLACED BACK ON AC MODE. AISSATOU KENDALL MADE AWARE.
--- NOTE | 2019-03-01 09:30 | NUR ---
PT ON CPAP FOR 1 HOUR 45 MINS. ABG DRAWN. WEANING PARAMETERS OBTAINED AND ARE FOLLOWS: MIP -25.9, VC 925, POSITIVE CUFF LEAK, RSBI 76. RESULTS GIVEN TO ICU HANDLE LATHE OPERATOR KARINA AND PTS NORBERTO.
--- NOTE | 2019-03-01 10:38 | NUR ---
WEANING PARAMETERS OBTAINED, ABG OBTAINED. CALLED DR ADHIKARI WHO GAVE TELEPHONE ORDERS TO EXTUBATE PT. PT EXTUBATED TO HFNC, BIPAP PRN AND ON STANDBY IN PATIENTS ROOM. PT IN NAD POST EXTUBATION, AWAKE, ALERT. WILL CONTINUE TO MONITOR. EXTUBATION TIME 1025.
--- NOTE | 2019-03-01 11:20 | NUR ---
PT WAS EXTUBATED AT 1025 AM. NGT WAS REMOVED AT THE SAME TIME. PT IS PUT ON HIGH FLOW FIO2 46%, PT TOLERATE WELL BY THIS TIME, O2 SAT 98%. PT RESTING COMFORTABLLY. CALLED PT'S SON AND MADE HIM AWARE PT'S EXTUBATION. WILL CONTINUE TO MONITOR.
--- NOTE | 2019-03-01 11:25 | NUR ---
Intervention/RDN Recommendation(s): 1. If able to extubate, consider swallow evaluation. 2. If able to extubate and pass swallow evaluation, recommend initiating CCHO diet in textures appropriate per FEED RESEARCH AIDE recommendations. 3. If unable to extubate, consider increasing goal rate to 65 mL/hr to better meet estimated kcal needs. At 65 mL/hr, TF Glucerna 1.2 will provide 1872 kcal to meet 78% estimated kcal needs.
--- NOTE | 2019-03-01 11:25 | NUR ---
Follow-up Nutrition Assessment- Dx: CHF, hypoxia Labs: (03/01/19) Na 149 H, Na 4.0, Glu 261 H, BUN 30 H, Cr 1.1, H/H 10. Meds: aldactone, Ativan, coreg, aspirin, D50%, diprivan, humulin R, KCl 10%, Lasix, magnesium sulfate, morphine sulfate, rocephin, Tylenol, zofran Current Nutrition Support: TF Glucerna 1.2 at 50 mL/hr via NGT with FWF 100 q3h. This provides 1440 kcal and 90 gm protein to meet 60% estimated kcal needs and 100% estimated protein needs; kcal inadequate. TF Intake: (03/01) 1591 mL, (02/28) 1202 mL, (02/27) 1774 mL, (02/26) 97 mL GTF Residuals: (03/01) 10 mL Diet: NPO; on TF Weights: (03/01) 286 pounds/130 kg; (02/28) 286 pounds/130 kg; (02/27) 287 pounds/130 kg; (02/26) 290 pounds/131 kg; (02/25) 230 pounds/105 kg; wt variances may be due to equipment on bed, fluid shifts as Pt also on Lasix. Skin: BLE skin discoloration, skin intact Girma: 12 Edema: trace BLE Last BM: abd soft, rounded with active bowel sounds x4Q Per consultation note, Pt seen by nephrology, Pt noted to be oliguric, on Lasix, responding appropriately and making a good amount of urine output. Kidney function improved, good urine output. Sodium noted to be higher, FWF flushes increased to 100 Q3H. Per physician progress note, Pt placed on CPAP on 02/28. RDN attempted to visit Pt, but Pt was with respiratory team, respiratory informed RDN that Pt was getting ready to be extubated. RDN spoke with RN. RN reports Pt has been tolerating feedings well. RDN discussed suggestion of CCHO diet in textures per MOTORS AND CONTROLS TESTER if Pt is successfully extubated, RN acknowledges, notes glucose has been elevated. Estimated Nutritional Needs unchanged from prior assessment: Estimated Nutritional Needs Based on adjusted body weight of 96 kg. Energy: 0769-0703 kcal/d (25-30 kcal/kg) Protein: 84-101 gm/d (1-1.2 gm/kg) - preserved LBM Fluid: 2841-1365 mL/d (1 mL/kcal) or per doctor Nutrition Diagnosis 1. Obesity related to possible increased energy intakes as evidenced by BMI of 37.8 kg/m2. (Modified) 2. Inadequate enteral nutrition infusion related to low TF rate as evidenced by current TF rate not meeting 75% estimated calorie and protein needs. (Continues) Intervention/RDN Recommendation(s): 1. Continue on TF Glucerna 1.2 at 50 mL/hr as tolerated. 2. If able to extubate, consider swallow evaluation. 3. If able to extubate and pass swallow evaluation, recommend initiating CCHO diet in textures appropriate per MOTORS AND CONTROLS TESTER recommendations. 4. If unable to extubate, consider increasing goal rate to 65 mL/hr to better meet estimated kcal needs. At 65 mL/hr, TF Glucerna 1.2 will provide 1872 kcal to meet 78% estimated kcal needs. Monitor/Evaluate Goal: Intake via nutrition support to meet at least 80% of estimated needs with acceptable tolerance within 2-3 days. Monitor: nutrition support tolerance, Labs, GI function, Skin integrity, Weights. F/U in 2-3 days as high risk (03/03-)
--- NOTE | 2019-03-01 13:03 | NUR ---
PT'S BEDSIDE SWALLOW SCREEN DONE. PT IS ABLE TO SWALLOW KANDACE, PUDDIN, APPLE SAUCE AND WATER WITHOUT COUGHING AND CHOKING. PT DENIED PAIN AND SWALLOWING PROBLEMS.
[2019-03-01 16:21] LABS: CALCIUM 8.2 mg/dL (8.5-10.1); CARBON DIOXIDE 32.6 mmol/L (21-32); CHLORIDE SERUM 111 mmol/L (98-107); GFR1 > 60 mL/min; GLUCOSE SERUM 301 mg/dL (74-106); POTASSIUM SERUM 4.3 mmol/L (3.5-5.1); SODIUM SERUM 148 mmol/L (136-145)
--- NOTE | 2019-03-01 19:25 | NUR ---
RECEIVED PT IN BED, FAMILY AT BEDSIDE. PT AOX4, DENIES FELIPE/DIZZINESS. RESP EVEN AND UNLABORED, PT EXTUBATED THIS MORNING, CURRENTLY ON HIGH FLOW O2 45%, DENIES SOB. SLIGHT INSPIRATORY WHEEZE NOTED IN LEFT UPPER LOBES, DIM BIALT BASES. ABD SOOFT, ROUND, BOWEL SOUNDS ACTIVE X4 QUAD, NO BM YET. NSR 79, DENIES CP. PULSES PALPABLE BUE, LLE PEDAL MOD, RLE PEDAL WEAK. PT HAS DISCOLORATION TO LLE, DRY FLAKY SKIN. REPORTS MINIMAL PAIN IN RT FOOT. DENIES NEED FOR PAIN MEDS, IV TO LAC/RAC PATENT, NO REDNESS, SWELLING OR PAIN NOTED. PT NO LONGER ON TUBE FEEDINGS, TOLERATING CCHO DIET WELL. PT WITH WORKMAN CTAH DRAINING LEONARDO URINE, DENIES DYSURIA. NO DRAINAGE NOTED FROM INSERTION SITE OF WORKMAN. PT ON LASIX, GENERALIZED WEAKNESS, FULL ROM BUE, LIMITED BLE. ALL COMFORT AND SAFETY MEASURES PROVIDED FOR, CALL LIGHT WITHIN REACH, BED IN LOWEST POSITION WILL CONTINUE TO MONITOR.
--- NOTE | 2019-03-01 19:45 | NUR ---
RECEIVED PHONE CALL FROM DR WHITTINGTON IN REGARDS TO REPOEAT SODIUM, LATEST NA= 148, DECREASED VERY LITTLE FROM THIS MORNING WHICH WAS NA= 149. PER DR. WHITTINGTON, PT IS TO BE ENCOURAGED TO DRINK MUCH WATER POSSIBLE, AND REPEAT BNP WILL BE ORDERED FOR MORNING 03/02/19. PT IS STATING HE IS THIRSTY, WILL FOLLOW THROUGH WITH THESE ORDERS, DR. WHITTINGTON UPDATED ON PT STATUS, NO LONGER INTUBATED AND PT IS NO LONGER ON TUBE FEEDINGS. PT REMAINS ON HIGH FLOW O2, DENIES SOB.
--- NOTE | 2019-03-02 00:10 | NUR ---
PT RESTING IN BED, SLEEPING INTERMITTENTLY. DRAINED 1100 PEACH URINE, PT STILL ASKING TO PEE, EDUCATED PT HE HAS A WORKMAN AND IT IS DRAINING HIS URINE. WORKMAN CATH WILL REMAIN IN UNTIL PUTS ORDER TO D/C IT, PT VERBALIZES UNDERSTANDING. RESP EVEN AND UNLABORED, ON 45% HI FLOW O2. DENIES SOB, DIM BILAT BASES. CALL LIGHT WITHIN REACH, BED IN LOWEST POSITION, WILL CONTINUE TO MONITOR.
[2019-03-02 03:00] VITALS: BP 120/64
--- NOTE | 2019-03-02 03:05 | NUR ---
PT RESTING INTERMITTENTLY, SLEEPING BUT EASY TO AROUSE, ABLE TO MAKE NEEDS KNOWN. PT REMAINS AOX4, DENIES FELIPE/DIZZINESS. NSR, 73, BP 120/64 (77), 97% ON 45% HI FLOW, DENIES PAIN DURING SHIFT. RESP EVEN AND UNLABORED, DENIES SOB. WORKMAN CATH CONTINUING TO DRAIN PEACH CLOUDY URINE, SEDIMENT SEEN IN WORKMAN TUBING. PT ENCOURAGED TO DRINK WATER PER DR. WHITTINGTON REQUEST TO HELP LOWEST SERUM SODIUM, PT HAS DRANK 2 PITCHERS OF WATER, TOLERATING WELL. PT REMAINS SALINE LOCKED, NO REDNESS, SWELLING OR PAIN NOTED. ALL COMFORT AND SAFETY MEASURES PRIVIDED FOR, CALL LIGHT WITHIN REACH, BED IN LOWEST POSITION, WILL CONTINUE TO MONITOR.
--- NOTE | 2019-03-02 05:05 | NUR ---
PT RESTED INTERMITTENTLY DURING SHIFT, MEDICATED A SECOND TIME WITH ROBUTUSSIN 10ML FOR PERSISTENT DRY COUGH. PT CONTINUES TO DRINK WATER PER DR. WHITTINGTON ORDER, TOLERATING WELL. PT REMAINS ON 45% HI FLOW, DENIES SOB. PT HAS NOT HAD A BM DURING SHIFT, WILL RECOMMEND DAYSHIFT REQUEST A STOOL SOFTENER DURING MORNING ROUNDS, WORKMAN CATH CARE PERFORMED, BED LINENS CHANGED, PT TOLERATED WELL. ALL COMFORT AND SAFETY MEASURES PROVIDED FOR, CALL LIGHT WITHIN REACH, BED IN LOWEST POSITION, WILL CONTINUE TO MONITOR.
[2019-03-02 05:32] LABS: BASOPHIL % 1.4 % (0-2)
[2019-03-02 05:36] LABS: PLATELET COUNT 107 x10^3mcL (130-400); RED CELL DISTRIBUTION WIDTH 15.7 % (11.5-14.5)
[2019-03-02 05:39] LABS: CALCIUM 8.1 mg/dL (8.5-10.1); CHLORIDE SERUM 111 mmol/L (98-107); GFR1 > 60 mL/min; GLUCOSE SERUM 191 mg/dL (74-106); MAGNESIUM 1.8 mg/dL (1.8-2.4); PHOSPHOROUS 3.7 mg/dL (2.5-4.9); POTASSIUM SERUM 3.8 mmol/L (3.5-5.1); SODIUM SERUM 146 mmol/L (136-145)
--- NOTE | 2019-03-02 07:20 | NUR ---
RECIEVED REPORT FROM NORBERTO CEDENO TO ASSUME ALL CARES. ALL QUESTIONS AND CONCERNS ADDRESSED. PATIENT IS AWAKE/ALERT POSITIONED SUPINE WITH HOB ELEVATED 45 DEGREES [address] PILLOWS IN PLACE TO ALLEVIATE PRESSURE POINTS. PATIENT IS CURRENLTY WATCHING TV. RESPIRATIONS ARE TACHYPNEIC WITH RR IN THE HIGH 20'S, EQUAL AND SYMMETRICAL ON HIGH FLOW WITH FI02 45%. PATIENT STATES HE IS A LITTLE SHORT OF BREATH BUT IN NO DISTRESS. PATIENT 02 SATURATION IS 95-98%. TWO IV'S NOTED, ONE TO THE LAC AND THE OTHER TO THE RAC, BOTH SALINE LOCKED. F/C IN PLACE AND SECURED DRAINING LEONARDO URINE VIA GRAVITY. BED TO LOWEST POSITION, SIDE RAILS UP X3, CALL LIGHT WITHIN REACH. WILL CONTINUE TO MONITOR.
[2019-03-02 08:04] VITALS: BP 125/68
[2019-03-02 11:57] VITALS: BP 125/65
--- NOTE | 2019-03-02 12:30 | NUR ---
RT MIGUEL AT BEDSIDE AND REMOVED HIGH FLOW AND PLACED PATIENT ON NC AT 4 LPM. CURRENT 02 SAT 95%. NO SIGNS OF RESP DISTRESS. WILL CONTINUE TO MONITOR.
--- NOTE | 2019-03-02 13:07 | NUR ---
PT CLEARED TO TRANSFER TO [facility] BY DR. MCKENNA.
--- NOTE | 2019-03-02 13:10 | NUR ---
DR. MCKENNA AT BEDSIDE TO ASSESS PATIENT. UPDATES PROVIDED AND POC DISCUSSED. WILL CONTINUE TO MONITOR.
--- NOTE | 2019-03-02 15:00 | NUR ---
PT AT BEDSIDE AND ASSIST PATIENT OUT OF BED TO LOUNGE CHAIR. VSS. WILL CONTINUE TO MONITOR.
[2019-03-02 15:20] VITALS: BP 103/55
--- NOTE | 2019-03-02 16:05 | NUR ---
PATIENT BACK TO BED WITH PT ASSISTANCE. PATIENT TOLERATED WELL. WILL CONTINUE TO MONITOR.
[2019-03-02 19:30] VITALS: BP 143/76
--- NOTE | 2019-03-02 19:30 | NUR ---
AWAKE AND ALERT, ANSWERING QUESTIONS APPROPRIATELY. BREATHING EVEN AND UNLABORED ON 4LPM OF O2 VIA NC. LUNG SOUNDS DIMINISHED TO BILATERAL BASES. ABLE TO COMPLETE SENTENCES WITHOUT DIFFICULTY. SALINE LOCKS TO RIGHT AND LEFT AC, APPEARS FREE FROM ERYTHEMA OR SWELLING. HOB ELEVATED 45 DEG. EATING DINNER WITH GOOD APPETITE. CALL LIGHT WITHIN EASY REACH.
--- NOTE | 2019-03-02 23:17 | NUR ---
EYES CLOSED, BREATHING EVEN AND UNLABORED ON 4LPM OF O2 VIA NC. CALL LIGHT WITHIN EASY REACH. HOB KEPT ELEVATED 30 DEG.
--- NOTE | 2019-03-02 23:56 | NUR ---
EYES CLOSED, EASILY AWAKENED. BREATHING EVEN AND UNLABORED ON 4LPM OF O2 VIA NC. LUNG SOUNDS DIMINISHED TO BASES. SALINE LOCKS TO LEFT AND RIGHT AC INTACT. HOB KEPT ELEVATED 30 DEG. CALL LIGHT WITHIN EASY REACH.
[2019-03-03] VITALS (9 sets, daily range): BP systolic 114–142; BP diastolic 54–78; Ht 185.4 cm; Wt 127.6 kg
--- NOTE | 2019-03-03 02:30 | NUR ---
EYES CLOSED, BREATHING EVEN AND UNLABORED ON 4LPM OF O2 VIA NC. OCCASSIONAL, MILD COUGHING NOTED. HOB KEPT ELEVATED 30 DEG, CALL LIGHT WITHIN EASY REACH.
--- NOTE | 2019-03-03 03:01 | NUR ---
ASSISTED TO COMMODE AT BEDSIDE.
--- NOTE | 2019-03-03 03:20 | NUR ---
ASSISTED BACK TO BED.
--- NOTE | 2019-03-03 06:27 | NUR ---
eyes closed, breathing even and unlabored on 4lpm of o2 via nc. call light within easy reach. hob elevated 30 deg.
--- NOTE | 2019-03-03 07:15 | NUR ---
RECIEVED REPORT FROM NORBERTO GENAO TO ASSUME ALL CARES. ALL QUESTIONS AND CONCERNS ADDRESSED. PATIENT IS CURRENLTY SLEEPING IN BED POSITIONED TO LEFT SIDE BUT ABLE TO REPOSITION SELF IN BED INDEPENDENTLY. VSS. RESPIRATIONS ARE EQUAL AND SYMMETRICAL ON 4L NC. NO SIGNS OF DISTRESS. IV'S NOTED TO LAC AND RAC AND BOTH SALINE LOCKED. BED TO LOWEST POSITION, SIDE RAILS UP 3, CALL LIGHT WITHIN REACH. WILL CONTINUE TO MONITOR.
--- NOTE | 2019-03-03 07:39 | NUR ---
DR. ADHIKARI AT BEDSIDE TO ASSESS PATIENT. UPDATES PROVIDED AND POC DISCUSSED. PLAN TO TRANSFER PATIENT TO TELE TODAY. WILL CONTINUE TO MONITOR.
[2019-03-03 09:16] LABS: BASOPHIL % 1.7 % (0-2); RED CELL DISTRIBUTION WIDTH 15.3 % (11.5-14.5)
[2019-03-03 09:17] LABS: PLATELET COUNT 125 x10^3mcL (130-400)
[2019-03-03 09:18] LABS: CALCIUM 8.2 mg/dL (8.5-10.1); CARBON DIOXIDE 28.6 mmol/L (21-32); CHLORIDE SERUM 108 mmol/L (98-107); CREATININE SERUM 0.9 mg/dL (0.7-1.3); GFR1 > 60 mL/min; GLUCOSE SERUM 210 mg/dL (74-106); POTASSIUM SERUM 4.1 mmol/L (3.5-5.1); SODIUM SERUM 143 mmol/L (136-145)
--- NOTE | 2019-03-03 09:23 | NUR ---
PHYSICAL THERAPY DONE, PATIENT WAS ABLE TO WALK A LITTLE AND COMPLETED SOME EXERCISES. PATIENT DESATURATED TO 86% WITHOUT OXYGEN BUT WENT BACK UP TO 93-94% AFTER RE-APPLYTING THE NASAL CANNULA AT 4 LPM. WILL CONTINUE TO MONITOR.
--- NOTE | 2019-03-03 11:18 | NUR ---
1. Recommend continuing CCHO mechanically soft- chopped diet at this time.
--- NOTE | 2019-03-03 11:18 | NUR ---
Follow-up Nutrition Assessment: IC06/A JUAN MORSE FU HR Dx: CHF, Hypoxia PMHx: CAD, CHF, HTN, DM Labs: (03/03) NA 146H, BG 191H, BUN 24H, ALB 2.1L, Ammonia 33H Meds: Aldactone, Ativan , coreg, D 50%, humulin, Lasix, magnesium sulfate, morphine, Zofran, heparin Diet: CCHO mechanically soft- chopped PO Intake: (03/02) Lunch 75%, breakfast 50%, (03/01) dinner, lunch 100% Weights: (02/28) 129.7 kg, (03/01) 129.7 kg, (03/03) 127.6 kg Skin: dark discoloration RLE Girma: 16 I/Os: (03/02) 1800/2900 (-1100) Edema: none GI: Last BM RDN Visit (03/03): Patient was extubated 03/01 and started on MS CCHO diet. Per RN Sugar, patient ate ~ 95% breakfast this morning and does not have any N/V/D, Pt is however constipated and RN received orders for Colace. Patient is on nasal cannula. Estimated Nutritional Needs Based on adjusted body weight 96 kg Energy: 0981-0025 kcal/d (25-30kcal/kg) Protein: 84-101 g/d (1.0-1.2 g/kg/IBW) - preserve LBM Fluid: 5675-4721 ml/d (1 ml/kcal) or per doctor Nutrition Diagnosis 1. Morbid obesity related to possible increased energy intake as evidenced by BMI 37.8 kg/m2. (ongoing) 2. Inadequate enteral nutrition infusion related to low TF rate as evidenced by current TF rate not meeting 75% of estimated calorie and protein needs.(pt extubated) Intervention 1. Recommend continuing CCHO mechanically soft- chopped diet at this time. Monitor/Evaluate Goal: Have pt meet at least 75% of estimated needs Monitor: PO intake, Labs, GI function F/U in 3-5 days as moderate risk 03/06-
--- NOTE | 2019-03-03 14:06 | NUR ---
PHYSICAL THERAPY DAILY NOTES CO-SIGN All documentation done by the Information Technology Advisor for 03/03/19 has been reviewed. I agree with the documentation. Reviewed/Co-Signed by: Leanna Ngo PT Documentation Done by:JOSE REGALADO PTA
--- NOTE | 2019-03-03 15:40 | NUR ---
DR. CULVER AT BEDSIDE TO ASSESS PATIENT. UPDATES PROVIDED AND POC DISCUSSED. WILL CONTINUE TO MONITOR.
--- NOTE | 2019-03-03 16:47 | NUR ---
EMPTIED APPROX 1500 ML OF URINE FROM WORKMAN CATH. URINE FOUND TO BE BLOODY. DR. ADHIKARI PAGED AT THIS TIME TO MAKE HIM AWARE. WILL CONTINUE TO MONITOR.
--- NOTE | 2019-03-03 16:49 | NUR ---
DR. ADHIKARI CALLED BACK AND ORDERED TO PUT THE HEPARIN SQ ON HOLD AT THIS TIME. WILL FOLLOW AND CONTINUE TO MONITOR.
--- NOTE | 2019-03-03 17:44 | NUR ---
PATIENT TRANSFERRED TO TELE ROOM 205B VIA WHEELCHAIR ATTACHED TO TELE BOX ACCOMPANIED [place] NURSE. REPORT GIVEN TO NORBERTO DUBOIS PRIOR TO PATIENT ARRIVING TO FLOOR. ALL QUESTIONS AND CONERNS ADDRESSED. PATIENT'S BELONGINGS SENT WITH PATIENT INCLUDING READING GLASSES AND HIS WALLET. NO INCIDENCE OCCURRED.
--- NOTE | 2019-03-03 17:50 | NUR ---
PATIENT ARRIVED TO FLOOR VIA WHEELCHAIR. PATIENT ABLE TO SELF TRANSFER FROM CHAIR TO BED W ASSIST. PATIENT DENIES ANY PAIN OR OTHER COMPLAINTS. PATIENT A/OX4, O2 ON NC AT 4LPM, WORKMAN PRESENT DRAINING SANGEUINOUS URINE & DR WISDOM AWARE. PATIENT TOLERATING DINNER TRAY, CALL LIGHT IN REACH. KNOWS TO CALL FOR STAFF FOR BEDSIDE COMMODE USAGE.
--- NOTE | 2019-03-03 19:45 | NUR ---
RECEIVED REPORT FROM DAY SHIFT NURSE. PT IS A/O X4. [place]/IRISH SPEAKING. DENIES CP. TELE #9 NSR WITH ELEVATED T WAVE. BP 128/61, HR 71. PULSES ARE EQUAL BILATERALLY ON ALL FOUR EXTREMITIES. NO EDEMA PRESENT. BREATHING IS EVEN AND UNLABORED ON 4L NC. BILATERAL WHEEZES TO UPPER LOBES. NO RESP. DISTRESS. LAST BM WAS 02/25. COMMODE AT BEDSIDE. YAKUT 16 WORKMAN CATH WITH 300CC OF DARK RED URINE OUTPUT. DENIES DYSURIA. GENERALIZED WEAKNESS, RIGHT FOOT HAS LIMITED ROM AND IS HAS DARK BROWN DISCOLORATION. PT DENIES PAIN AT THIS TIME. IVS ON RAC & LAC INTACT AND PATENT. NO REDNESS OR DISCOLORATION. BED IN LOWEST POSITION. CALL LIGHT WITHIN REACH. WILL CONTINUE TO MONITOR.
--- NOTE | 2019-03-03 21:46 | NUR ---
ROUTINE MEDICATIONS WERE GIVEN AND TOLERATED WELL. DENIES PAIN AT THIS TIME. BREATHING IS EVEN AND UNLABORED ON 4L NC. NO SIGNS OF RESP. DENIES CP AT THIS TIME. HOB UP. CALL LIGHT WITHIN REACH. WILL CONTINUE TO MONITOR.
--- NOTE | 2019-03-03 23:10 | NUR ---
PT C/O COUGHING. ADMINISTERED ROBITUSSIN PER MAR. WILL CONTINUE TO MONITOR.
--- NOTE | 2019-03-04 01:44 | NUR ---
PT IS ASLEEP. BREATHING IS EVEN AND UNLABORED. NO COUGH PRESENT AT THIS TIME. WILL CONTINUE TO MONITOR.
--- NOTE | 2019-03-04 04:03 | NUR ---
PT IS SLEEPING. BREATHING IS EVEN AND UNLABORED. NO SIGNS OF RESP. DISTRESS. BED IN LOWEST POSITION. CALL LIGHT WITHIN REACH. WILL CONTINUE TO MONITOR.
[2019-03-04 05:40] VITALS: BP 143/67
--- NOTE | 2019-03-04 05:55 | NUR ---
LAC IV D/C'D D/T LEAKING. RAC STILL INTACT AND PATENT.
--- NOTE | 2019-03-04 06:00 | NUR ---
PT SLEPT IN INTERVALS THROUGHOUT THE NIGHT. PT COMPLIED WITH NURSING CARE THROUGHOUT SHIFT W/ NO ACUTE CHANGES. COMFORT AND SAFETY MEASURES MAINTAINED. ALL NEEDS ASSESSED AND ATTENDED TO. WILL CONTINUE TO MONITOR AND ENDORSE CARE TO DAY SHIFT NURSE.
[2019-03-04 06:27] LABS: BASOPHIL % 1.2 % (0-2)
[2019-03-04 06:33] LABS: CARBON DIOXIDE 32.9 mmol/L (21-32); CHLORIDE SERUM 106 mmol/L (98-107); CREATININE SERUM 0.9 mg/dL (0.7-1.3); GFR1 > 60 mL/min; GLUCOSE SERUM 174 mg/dL (74-106); POTASSIUM SERUM 3.8 mmol/L (3.5-5.1); SODIUM SERUM 143 mmol/L (136-145)
[2019-03-04 06:39] LABS: PLATELET COUNT 125 x10^3mcL (130-400); RED CELL DISTRIBUTION WIDTH 15.4 % (11.5-14.5)
[2019-03-04 06:49] LABS: BILIRUBIN DIRECT 0.25 mg/dL (0.0-0.2); BILIRUBIN TOTAL 0.8 mg/dL (0.20-1.00); TOTAL PROTEIN, SERUM 7.2 g/dL (6.4-8.2)
[2019-03-04 06:51] LABS: ALBUMIN 2.1 g/dL (3.4-5.0)
--- NOTE | 2019-03-04 07:22 | NUR ---
ENDORSED CARE TO DAY SHIFT NURSE.
--- NOTE | 2019-03-04 08:00 | NUR ---
RECEIVED PATIENT A/A/OX4; CLEAR SPEECH. TELE#9; SR W/ BBB; HR = 79; DENIED CHEST PAIN NOW. NO SOB ON SITITNG ON BED. BREATHING SOUND CLEAR JUSTIN UPPER LOBES AND DIMINIISHED W/ FINE CRACKLES BLL. O2 SAT 94% ON 4L VIA N/C. RT PROTOCOL. IVHL'D TO RAC; SITE CLEAN. RT LOWER LEG BROWN DISCOLORATION W/ DRY SKIN. ALL PULSE PALPABLE. D/C WORKMAN CATH PER ORDER. BLOOD CLOTS IN TUBE. 50CC OF BLOODY URINE IN BAG. URINAL GIVEN. BSC IN PLACE. FINISHED 50% OF [facility] DIET BREAKFAST. DENIED PAIN NOW. CALL LIGHT IN REACH.
[2019-03-04 09:07] VITALS: BP 133/65
--- NOTE | 2019-03-04 13:15 | NUR ---
PATIENT HAD VOIDING X3 AFTER WORKMAN CATH REMOVAL. THE FIRST TWO TIMES OF URINE WERE DARK RED WITH BLOOD CLOTS. THE THIRD VOIDING WAS DARK RED WITHOUT BLOOD CLOTS IN. CONTINUE MONITOR.
[2019-03-04 13:33] VITALS: BP 113/45
--- NOTE | 2019-03-04 14:43 | NUR ---
PAGED DR. ADHIKARI AND REPORTED TO DR. ADHIKARI WITH PATIENT'S HEAVY HEMOTOURINA AFTER WORKMAN D/C'. TELEPHONE ORDER OF HOLD DISCHARGE TO HOME RECEIVED. HALEIGH, CHARGE NURSE, AWARE OF.
[2019-03-04 17:18] VITALS: BP 148/74
--- NOTE | 2019-03-04 18:14 | NUR ---
PATIENT VOID X4 THIS SHIFT. 4TH VOIDING OF URINE HAD MORE BLOOD CLOTS THAN THE 3RD ONE. DENIED PAIN. TOLERATED DINNER. HAD BM X1 THIS SHIFT. ENDORSED CARE TO NOC NURSE.
--- NOTE | 2019-03-04 20:08 | NUR ---
RECEIVEDVPATIENT IN BED AWAKE, ALERT AND ORIENTED, ABLE TO VERBALIZED NEEDS. TELE#4 ELEVATED T WAVE WITH BBB ON MONITOR. DENIES CHESTPAIN. RLE WITH DISCOLORATION NOTED, NO EDEMA. ON O2 AT 2L VIA NC SATTING AT 97%, BREATHING EASY AND NONLABOR. CRACKERS NOTED TO JUSTIN.LOWER LOBES. PER PATIENT HE NOTICED BLOOD IN HIS URINE WHILE VOIDING , PER AM SHIFT RN, AWARE. IV HEPLOCK TO RAC FLUSHED WITH NS. WILL CONTINUE TO MONITOR. CALL LIGHT WITHIN REACH.
[2019-03-04 21:06] VITALS: BP 129/58
--- NOTE | 2019-03-05 02:35 | NUR ---
APPEAR TO BE SLEEPING AT THIS TIME. NO SIGN PF PAIN AND DISCOMFORT NOTED.
--- NOTE | 2019-03-05 05:19 | NUR ---
SLEPT AT LONG INTERVALS, DENIES PAIN AND DISCOMFORT THE ENTIRE SHIFT. ALL NEEDS ATTENDED.
[2019-03-05 05:42] VITALS: BP 112/51
[2019-03-05 06:55] LABS: CARBON DIOXIDE 29.5 mmol/L (21-32); CHLORIDE SERUM 105 mmol/L (98-107); GFR1 > 60 mL/min; GLUCOSE SERUM 157 mg/dL (74-106); POTASSIUM SERUM 3.8 mmol/L (3.5-5.1); SODIUM SERUM 143 mmol/L (136-145)
[2019-03-05 07:10] LABS: BASOPHIL % 1.5 % (0-2); PLATELET COUNT 142 x10^3mcL (130-400); RED CELL DISTRIBUTION WIDTH 15.2 % (11.5-14.5)
--- NOTE | 2019-03-05 08:00 | NUR ---
A/A/OX4; CLEAR SPEAKING. TELE#9; SR W/ BBB; HR = 67. DENIED CHESET PAIN. BREATHING SOUND DIMINISHED JUSTIN BASES. FINE RACKLES TO LLL. O2 SAT 94% ON 2L VIA N/C. TOLERATED CCHO DIET BREAKFAST. HAD BM YESTERDAY. PER NOC NURSE. PATIENT VOIDED DARK RED URINE. NO LIGHTENING. DENIED PAIN. GENERAL WEAKNESS. NEED ASSIST FOR USE BSC. BROWN DISCOLORATION W/ DRY SKIN TO RT LOWER LEG. NO EDEMA NOTED. PULSES PALAPBLE. IVHL'D TO RAC. CALL LIGHT IN REACH.
[2019-03-05 09:03] VITALS: BP 107/30
--- NOTE | 2019-03-05 10:00 | NUR ---
REPORTED TO DR. ADHIKARI WITH PATIENT VOIDED DARK RED URINE, THE COLOER OF URINE WAS SAME YESTERDAY.
--- NOTE | 2019-03-05 12:20 | NUR ---
IV TO RAC LEAKING. NEW IV INSERTED TO R WRIST WITH 22G NEEDLE. H/L'D.
[2019-03-05 12:33] VITALS: BP 103/44
--- NOTE | 2019-03-05 14:00 | NUR ---
PHYSICAL THERAPY DAILY NOTES CO-SIGN All documentation done by the Bar Attendant for 03/05/19 has been reviewed. I agree with the documentation. Reviewed/Co-Signed by: Leanna Ngo PT Documentation Done by: JOSE REGALADO PTA
[2019-03-05 16:03] VITALS: BP 108/40
[2019-03-05 16:23] VITALS: BP 108/40
--- NOTE | 2019-03-05 17:50 | NUR ---
PATIENT STILL VOID DARK RED COLOR URINE. DENIED PAIN. TRANSFER TO [facility] FOR UROLOGY CONSULTATION AND TREATMENT. REPORT GIVEN TO NORBERTO SEARS, CARLY.
--- NOTE | 2019-03-05 18:10 | NUR ---
TRANSFER TO [facility] VIA ACLS; IVHL'D TO RT WRIST. PHOTO TAKEN FOR RLE DISCOLORATION. PER PATIENT DISCOLORATION LAST FOR 6 YRS. CONDITION STABLE.
== END 2019-03-05 18:13 | disposition short-term general hospital (02) | DRG 208 ==
LOC: ED 04:54 → IC 05:59 → DU 03-03 17:33
PROVIDERS: Emergency Medicine; Internal Medicine; Internal Medicine Nephrology; ADMIT Internal Medicine Pulmonary Disease
PROC: 5A1945Z Respiratory Ventilation, 24-96 Consecutive Hours (ICD-10-PCS; principal; 2019-02-25)
PROC: 0BH17EZ Insertion of Endotracheal Airway into Trachea, Via Natural or Artificial Opening (ICD-10-PCS; 2019-02-25)
DX: J96.01 Acute respiratory failure with hypoxia (principal); I50.43 Acute on chronic combined systolic (congestive) and diastolic (congestive) heart failure; J18.9 Pneumonia, unspecified organism; N17.0 Acute kidney failure with tubular necrosis; E87.4 Mixed disorder of acid-base balance; I13.0 Hypertensive heart and chronic kidney disease with heart failure and stage 1 through stage 4 chronic kidney disease, or unspecified chronic kidney disease; N18.2 Chronic kidney disease, stage 2 (mild); E11.65 Type 2 diabetes mellitus with hyperglycemia; E11.22 Type 2 diabetes mellitus with diabetic chronic kidney disease; E87.6 Hypokalemia; D69.59 Other secondary thrombocytopenia; I34.0 Nonrheumatic mitral (valve) insufficiency; I25.10 Atherosclerotic heart disease of native coronary artery without angina pectoris; Z68.38 Body mass index [BMI] 38.0-38.9, adult; Z79.84 Long term (current) use of oral hypoglycemic drugs
CPT/HCPCS: 36600; 82962; 83880; 97110-GP; 97116-GP; 97530-GP; A4628; G0378; J0696; J1644; J1815; J1940; J1956; J2060; J2250; J2270; J2405; J2704; J3370; J3480; J3490; J7050; J7620; Q0092

== ENCOUNTER 2019-04-13 14:19 | Inpatient (IN) | payer OTHER ==
[~2019-04-13] VITALS: Ht 172.7 cm; Wt 129.9 kg
[~2019-04-13 14:19] MED LIST changes: +CARVEDILOL3.125 M1 PO; +PAROXETINE HCL20 M1 GT; +POTASSIUM CHLO10 MEQ; +SIMVASTATIN40 M1 PO; +TRAMADOL HCL50 MG; +TRAZODONE50 M1 PO
[2019-04-13 15:01] LABS: BASOPHIL % 0.6 % (0-2); RED CELL DISTRIBUTION WIDTH 14.5 % (11.5-14.5)
[2019-04-13 15:05] LABS: PLATELET COUNT 122 x10^3mcL (130-400)
[2019-04-13 15:29] LABS: ALKALINE PHOSPHATASE 84 U/L (46-116); ALT/SGPT 9 U/L (16-63); AST/SGOT 27 U/L (15-37); BILIRUBIN TOTAL 1.04 mg/dL (0.20-1.00); CALCIUM 8.9 mg/dL (8.5-10.1); CARBON DIOXIDE 27.9 mmol/L (21-32); CHLORIDE SERUM 107 mmol/L (98-107); CHOLESTEROL 147 mg/dL (<200); CREATININE SERUM 0.9 mg/dL (0.7-1.3); GFR1 > 60 mL/min; GLUCOSE SERUM 191 mg/dL (74-106); HDL CHOLESTEROL 58 mg/dL (40-60); SODIUM SERUM 144 mmol/L (136-145)
[2019-04-13 15:31] LABS: ALBUMIN 2.9 g/dL (3.4-5.0); POTASSIUM SERUM 2.9 mmol/L (3.5-5.1); TOTAL PROTEIN, SERUM 8.4 g/dL (6.4-8.2)
[2019-04-13] MEDS ORDERED: XIFAXAN550 M1 (15:40)
[2019-04-13] MEDS ORDERED: LANTUS SOLOS100 U/M1 SQ (15:41)
[2019-04-13 15:48] LABS: microscopic required? YES; urine erythrocyte 2+ (NEGATIVE)
[2019-04-13 18:39] VITALS: BP 128/55
[2019-04-13 18:49] VITALS: Ht 172.7 cm; Wt 129.9 kg
[2019-04-13 20:40] VITALS: BP 115/66
[2019-04-13 20:50] VITALS: BP 115/58
[2019-04-14 05:29] VITALS: BP 135/51
[2019-04-14 06:14] LABS: BASOPHIL % 0.7 % (0-2)
[2019-04-14 06:21] LABS: PLATELET COUNT 103 x10^3mcL (130-400); RED CELL DISTRIBUTION WIDTH 14.9 % (11.5-14.5)
[2019-04-14 06:26] LABS: CALCIUM 8.4 mg/dL (8.5-10.1); CARBON DIOXIDE 33.5 mmol/L (21-32); CHLORIDE SERUM 111 mmol/L (98-107); CREATININE SERUM 0.9 mg/dL (0.7-1.3); GFR1 > 60 mL/min; GLUCOSE SERUM 130 mg/dL (74-106); SODIUM SERUM 149 mmol/L (136-145)
[2019-04-14 06:30] LABS: POTASSIUM SERUM 2.9 mmol/L (3.5-5.1)
[2019-04-14 08:51] VITALS: BP 145/65
[2019-04-14 12:24] VITALS: BP 114/76
[2019-04-14 17:10] VITALS: BP 115/48
[2019-04-14 20:14] LABS: BASOPHIL % 1.2 % (0-2)
[2019-04-14 20:19] LABS: PLATELET COUNT 105 x10^3mcL (130-400); RED CELL DISTRIBUTION WIDTH 14.9 % (11.5-14.5)
[2019-04-14 20:21] LABS: CALCIUM 8.1 mg/dL (8.5-10.1); CARBON DIOXIDE 31.8 mmol/L (21-32); CHLORIDE SERUM 110 mmol/L (98-107); CREATININE SERUM 1.2 mg/dL (0.7-1.3); GFR1 > 60 mL/min; GLUCOSE SERUM 180 mg/dL (74-106); POTASSIUM SERUM 3.6 mmol/L (3.5-5.1); SODIUM SERUM 146 mmol/L (136-145)
[2019-04-14 20:45] VITALS: BP 115/51
[2019-04-15 04:15] VITALS: BP 118/55
[2019-04-15 06:15] LABS: BASOPHIL % 1.4 % (0-2)
[2019-04-15 06:29] LABS: PLATELET COUNT 106 x10^3mcL (130-400); RED CELL DISTRIBUTION WIDTH 14.8 % (11.5-14.5)
[2019-04-15 06:52] LABS: CALCIUM 8.5 mg/dL (8.5-10.1); CARBON DIOXIDE 32.4 mmol/L (21-32); CREATININE SERUM 1.4 mg/dL (0.7-1.3); POTASSIUM SERUM 3.9 mmol/L (3.5-5.1)
[2019-04-15 08:12] VITALS: BP 147/66
[2019-04-15 11:42] VITALS: BP 117/54
[2019-04-15 16:55] VITALS: BP 117/39
[2019-04-16 05:52] VITALS: BP 113/55
[2019-04-16 06:08] LABS: BASOPHIL % 0.2 % (0-2); RED CELL DISTRIBUTION WIDTH 14.2 % (11.5-14.5)
[2019-04-16 06:14] LABS: PLATELET COUNT 97 x10^3mcL (130-400)
[2019-04-16 06:22] LABS: ALKALINE PHOSPHATASE 60 U/L (46-116); ALT/SGPT 8 U/L (16-63); AST/SGOT 13 U/L (15-37); BILIRUBIN DIRECT 0.22 mg/dL (0.0-0.2); BILIRUBIN TOTAL 0.54 mg/dL (0.20-1.00); CALCIUM 8.8 mg/dL (8.5-10.1); CARBON DIOXIDE 30.7 mmol/L (21-32); CHLORIDE SERUM 111 mmol/L (98-107); CREATININE SERUM 1.1 mg/dL (0.7-1.3); GFR1 > 60 mL/min; GLUCOSE SERUM 182 mg/dL (74-106); POTASSIUM SERUM 3.9 mmol/L (3.5-5.1); SODIUM SERUM 147 mmol/L (136-145)
[2019-04-16 07:15] LABS: ALBUMIN 2.4 g/dL (3.4-5.0)
[2019-04-16 09:00] VITALS: BP 135/70
[2019-04-16 12:14] VITALS: BP 121/62
[2019-04-16 18:12] VITALS: BP 122/62
[2019-04-16 20:16] VITALS: BP 122/57
[2019-04-17 04:39] VITALS: BP 107/56
[2019-04-17 08:55] VITALS: BP 127/53
[2019-04-17 20:30] VITALS: BP 133/72
[2019-04-18 04:55] VITALS: BP 121/59
[2019-04-18 06:47] LABS: PLATELET COUNT 146 x10^3mcL (130-400); RED CELL DISTRIBUTION WIDTH 13.7 % (11.5-14.5)
[2019-04-18 06:51] LABS: CHLORIDE SERUM 108 mmol/L (98-107); CREATININE SERUM 1.2 mg/dL (0.7-1.3); GFR1 > 60 mL/min; GLUCOSE SERUM 142 mg/dL (74-106); POTASSIUM SERUM 3.7 mmol/L (3.5-5.1); SODIUM SERUM 146 mmol/L (136-145)
[2019-04-18 07:05] LABS: BASOPHIL % 0 % (0-2)
[2019-04-18 07:45] VITALS: BP 121/67
[2019-04-18 12:08] VITALS: BP 132/54
[2019-04-18 16:00] VITALS: BP 137/64
[2019-04-18 20:45] VITALS: BP 131/60
[2019-04-19] VITALS (7 sets, daily range): BP systolic 133–152; BP diastolic 49–76
[2019-04-19 06:32] LABS: CARBON DIOXIDE 32.8 mmol/L (21-32); CHLORIDE SERUM 110 mmol/L (98-107); CREATININE SERUM 1.1 mg/dL (0.7-1.3); GFR1 > 60 mL/min; GLUCOSE SERUM 114 mg/dL (74-106); MAGNESIUM 2.3 mg/dL (1.8-2.4); POTASSIUM SERUM 3.9 mmol/L (3.5-5.1); SODIUM SERUM 149 mmol/L (136-145)
[2019-04-20 05:36] VITALS: BP 121/68
[2019-04-20 06:49] LABS: CALCIUM 8.3 mg/dL (8.5-10.1); CARBON DIOXIDE 35.7 mmol/L (21-32); CHLORIDE SERUM 113 mmol/L (98-107); CREATININE SERUM 0.9 mg/dL (0.7-1.3); GFR1 > 60 mL/min; GLUCOSE SERUM 74 mg/dL (74-106); SODIUM SERUM 152 mmol/L (136-145)
[2019-04-20 07:03] LABS: POTASSIUM SERUM 2.8 mmol/L (3.5-5.1)
[2019-04-20 12:37] VITALS: BP 126/63
[2019-04-20 17:50] VITALS: BP 123/59
[2019-04-20 20:18] VITALS: BP 133/63
[2019-04-21 06:13] VITALS: BP 139/78
[2019-04-21 07:35] VITALS: BP 153/81
[2019-04-21 12:36] VITALS: BP 122/57
[2019-04-21 13:52] LABS: BASOPHIL % 0.1 % (0-2); PLATELET COUNT 137 x10^3mcL (130-400)
[2019-04-21 13:54] VITALS: BP 122/57
[2019-04-21 13:54] LABS: RED CELL DISTRIBUTION WIDTH 14.6 % (11.5-14.5)
[2019-04-21 14:23] LABS: ALKALINE PHOSPHATASE 69 U/L (46-116); ALT/SGPT 24 U/L (16-63); AST/SGOT 45 U/L (15-37); CALCIUM 7.9 mg/dL (8.5-10.1); CARBON DIOXIDE 34.4 mmol/L (21-32); CHLORIDE SERUM 109 mmol/L (98-107); CREATININE SERUM 1.1 mg/dL (0.7-1.3); GFR1 > 60 mL/min; GLUCOSE SERUM 258 mg/dL (74-106); SODIUM SERUM 148 mmol/L (136-145); TOTAL PROTEIN, SERUM 6.3 g/dL (6.4-8.2)
[2019-04-21 14:25] LABS: ALBUMIN 2.2 g/dL (3.4-5.0)
[2019-04-21 14:26] LABS: POTASSIUM SERUM 2.7 mmol/L (3.5-5.1)
[2019-04-21 15:30] VITALS: BP 139/63
[2019-04-21 21:10] VITALS: BP 117/70
[2019-04-22 06:10] VITALS: BP 150/78
[2019-04-22 08:10] VITALS: BP 152/110
[2019-04-22 11:39] VITALS: BP 152/71
[2019-04-22 16:07] VITALS: BP 114/60
[2019-04-23 05:30] VITALS: BP 146/71
[2019-04-23 07:28] LABS: CALCIUM 8.6 mg/dL (8.5-10.1); CARBON DIOXIDE 29.6 mmol/L (21-32); CHLORIDE SERUM 106 mmol/L (98-107); GFR1 > 60 mL/min; GLUCOSE SERUM 177 mg/dL (74-106); POTASSIUM SERUM 3.1 mmol/L (3.5-5.1); SODIUM SERUM 143 mmol/L (136-145)
[2019-04-23 08:15] VITALS: BP 141/81
[2019-04-23 10:46] VITALS: BP 141/81
[2019-04-23 11:44] VITALS: BP 138/98
[2019-04-23 14:15] LABS: CALCIUM 7.9 mg/dL (8.5-10.1); CARBON DIOXIDE 29.2 mmol/L (21-32); CHLORIDE SERUM 104 mmol/L (98-107); CREATININE SERUM 1.2 mg/dL (0.7-1.3); GFR1 > 60 mL/min; GLUCOSE SERUM 342 mg/dL (74-106); POTASSIUM SERUM 3.5 mmol/L (3.5-5.1); SODIUM SERUM 140 mmol/L (136-145)
[2019-04-23 16:01] VITALS: BP 115/52
[2019-04-23 16:05] VITALS: BP 138/98
== END 2019-04-23 19:17 | disposition home health service (06) | DRG 193 ==
LOC: ED 14:19 → DU 17:08
PROVIDERS: Emergency Medicine; Internal Medicine; Internal Medicine Pulmonary Disease; ADMIT Internal Medicine Pulmonary Disease
DX: J18.9 Pneumonia, unspecified organism (principal); I50.33 Acute on chronic diastolic (congestive) heart failure; J96.00 Acute respiratory failure, unspecified whether with hypoxia or hypercapnia; Z68.41 Body mass index [BMI] 40.0-44.9, adult; E87.0 Hyperosmolality and hypernatremia; I10 Essential (primary) hypertension; E66.01 Morbid (severe) obesity due to excess calories; Z79.4 Long term (current) use of insulin
CPT/HCPCS: 36600; 82962; 83880; 85378; 94150; 97116-GP; 97530-GP; G0378; J1644; J1650; J1815; J1940; J1956; J2405; J2930; J3010; J3480; J7040; J7050; J7613; J7620; J7644; Q0092; Q9967

== ENCOUNTER 2019-05-21 05:26 | Inpatient (IN) | payer OTHER ==
[~2019-05-21] VITALS: Ht 177.8 cm; Wt 145.1 kg
[~2019-05-21 05:26] MED LIST changes: +LANTUS SOLOS100 U/M1 SQ; +XIFAXAN550 M1
[2019-05-21 05:38] VITALS: Ht 177.8 cm; Wt 145.1 kg
[2019-05-21 07:09] LABS: BASOPHIL % 0.3 % (0-2); PLATELET COUNT 181 x10^3mcL (130-400)
[2019-05-21 07:11] LABS: RED CELL DISTRIBUTION WIDTH 16.5 % (11.5-14.5)
[2019-05-21 07:16] LABS: CALCIUM 8.6 mg/dL (8.5-10.1); CARBON DIOXIDE 24.8 mmol/L (21-32); CHLORIDE SERUM 95 mmol/L (98-107); CREATININE SERUM 1.9 mg/dL (0.7-1.3); GFR1 38 mL/min; POTASSIUM SERUM 3.5 mmol/L (3.5-5.1); SODIUM SERUM 132 mmol/L (136-145)
[2019-05-21 07:17] LABS: ALKALINE PHOSPHATASE 115 U/L (46-116); ALT/SGPT 8 U/L (16-63); AST/SGOT 15 U/L (15-37); TOTAL PROTEIN, SERUM 7.2 g/dL (6.4-8.2)
[2019-05-21 07:44] LABS: ALBUMIN 2.3 g/dL (3.4-5.0)
[2019-05-21 07:47] LABS: GLUCOSE SERUM 827 mg/dL (74-106)
[2019-05-21 08:19] LABS: UA SPECIFIC GRAVITY <=1.005 (1.005-1.035); microscopic required? YES; urine erythrocyte 1+ (NEGATIVE)
[2019-05-21 15:18] VITALS: BP 124/56
[2019-05-21 16:24] VITALS: BP 119/67
[2019-05-21 19:36] VITALS: BP 100/55
[2019-05-22 05:20] VITALS: BP 100/45
[2019-05-22 07:04] LABS: BASOPHIL % 0.7 % (0-2); PLATELET COUNT 169 x10^3mcL (130-400)
[2019-05-22 07:23] LABS: RED CELL DISTRIBUTION WIDTH 17.5 % (11.5-14.5)
[2019-05-22 07:30] LABS: CALCIUM 8.5 mg/dL (8.5-10.1); CARBON DIOXIDE 26.2 mmol/L (21-32); CREATININE SERUM 1.7 mg/dL (0.7-1.3)
[2019-05-22 07:32] LABS: POTASSIUM SERUM 2.7 mmol/L (3.5-5.1)
[2019-05-22 07:47] VITALS: BP 114/57
[2019-05-22 11:49] VITALS: BP 103/49
[2019-05-22 14:02] LABS: AMPHETAMINE QUAL UR NONE DETECTED (See below)
[2019-05-22 16:26] VITALS: BP 97/50
[2019-05-22 20:52] VITALS: BP 98/61
[2019-05-23 05:22] VITALS: BP 137/82
[2019-05-23 07:00] LABS: CALCIUM 8.3 mg/dL (8.5-10.1); CARBON DIOXIDE 26.9 mmol/L (21-32); CREATININE SERUM 1.6 mg/dL (0.7-1.3); MAGNESIUM 2.1 mg/dL (1.8-2.4); POTASSIUM SERUM 3.4 mmol/L (3.5-5.1)
[2019-05-23 07:07] LABS: BASOPHIL % 0.2 % (0-2); PLATELET COUNT 147 x10^3mcL (130-400); RED CELL DISTRIBUTION WIDTH 17.9 % (11.5-14.5)
[2019-05-23 09:00] VITALS: BP 114/61
[2019-05-23 12:47] VITALS: BP 102/64
[2019-05-23 14:44] VITALS: BP 102/64
[2019-05-23 17:21] VITALS: BP 141/93
[2019-05-23 20:40] VITALS: BP 102/55
[2019-05-24 06:16] VITALS: BP 112/60
[2019-05-24 08:59] VITALS: BP 104/54
[2019-05-24 13:48] VITALS: BP 99/53
[2019-05-24 16:46] VITALS: BP 103/55
[2019-05-24 21:13] VITALS: BP 102/55
[2019-05-25 05:35] VITALS: BP 107/61
[2019-05-25 07:54] VITALS: BP 94/69
[2019-05-25 07:54] LABS: BASOPHIL % 0.4 % (0-2)
[2019-05-25 08:00] LABS: PLATELET COUNT 125 x10^3mcL (130-400); RED CELL DISTRIBUTION WIDTH 18.8 % (11.5-14.5)
[2019-05-25 08:23] LABS: CALCIUM 8.5 mg/dL (8.5-10.1); CREATININE SERUM 1.3 mg/dL (0.7-1.3); POTASSIUM SERUM 3.7 mmol/L (3.5-5.1)
[2019-05-25 12:37] VITALS: BP 112/49
[2019-05-25 16:39] VITALS: BP 93/55
[2019-05-25 19:33] VITALS: BP 112/54
== END 2019-05-25 22:08 | DRG 637 ==
LOC: ED 05:26 → DU 09:45 → EDBEDREQSVC 09:57 → EDBEDREQ 09:57 → DU 11:05
PROVIDERS: Emergency Medicine; Internal Medicine Pulmonary Disease; ADMIT Internal Medicine Pulmonary Disease
DX: E11.00 Type 2 diabetes mellitus with hyperosmolarity without nonketotic hyperglycemic-hyperosmolar coma (NKHHC) (principal); G93.41 Metabolic encephalopathy; N17.0 Acute kidney failure with tubular necrosis; L03.115 Cellulitis of right lower limb; I13.0 Hypertensive heart and chronic kidney disease with heart failure and stage 1 through stage 4 chronic kidney disease, or unspecified chronic kidney disease; Z68.42 Body mass index [BMI] 45.0-49.9, adult; F10.288 Alcohol dependence with other alcohol-induced disorder; K70.30 Alcoholic cirrhosis of liver without ascites; M62.81 Muscle weakness (generalized); E11.65 Type 2 diabetes mellitus with hyperglycemia; I50.9 Heart failure, unspecified; N18.3 Chronic kidney disease, stage 3 (moderate); E11.22 Type 2 diabetes mellitus with diabetic chronic kidney disease; E11.51 Type 2 diabetes mellitus with diabetic peripheral angiopathy without gangrene; E66.01 Morbid (severe) obesity due to excess calories
CPT/HCPCS: 82962; 90658; 97110-GP; 97116-GP; 97530-GP; G0378; G0480; J1650; J1815; J3490; J7030; Q0092

== ENCOUNTER 2019-07-11 21:07 | Inpatient (IN) | payer OTHER ==
[~2019-07-11] VITALS: Ht 177.8 cm; Wt 113.1 kg
[~2019-07-11 21:07] MED LIST changes: -PAROXETINE HCL20 M1 GT; +PAROXETINE HCL20 M1 PO; -POTASSIUM CHLO10 MEQ; +POTASSIUM CHLO10 MEQ PO; -TRAMADOL HCL50 MG; -XIFAXAN550 M1
[2019-07-11 22:00] LABS: BASOPHIL % 0.7 % (0-2); PLATELET COUNT 87 x10^3mcL (130-400); RED CELL DISTRIBUTION WIDTH 17.4 % (11.5-14.5)
[2019-07-11 22:52] LABS: ALKALINE PHOSPHATASE 101 U/L (46-116); ALT/SGPT 9 U/L (16-63); AST/SGOT 18 U/L (15-37); BILIRUBIN TOTAL 1.9 mg/dL (0.20-1.00); CALCIUM 8.6 mg/dL (8.5-10.1); CARBON DIOXIDE 32.6 mmol/L (21-32); CHLORIDE SERUM 102 mmol/L (98-107); CHOLESTEROL 139 mg/dL (<200); CREATININE SERUM 1.4 mg/dL (0.7-1.3); GFR1 54 mL/min; GLUCOSE SERUM 440 mg/dL (74-106); SODIUM SERUM 142 mmol/L (136-145); TOTAL PROTEIN, SERUM 7.3 g/dL (6.4-8.2)
[2019-07-11 22:55] LABS: ALBUMIN 2.3 g/dL (3.4-5.0)
[2019-07-11 23:07] LABS: POTASSIUM SERUM 1.9 mmol/L (3.5-5.1)
[2019-07-12] VITALS (7 sets, daily range): BP systolic 98–142; BP diastolic 51–72
[2019-07-12 02:21] LABS: microscopic required? YES; urine erythrocyte 2+ (NEGATIVE)
[2019-07-12 17:38] LABS: CALCIUM 8.2 mg/dL (8.5-10.1); CARBON DIOXIDE 29.2 mmol/L (21-32); CHLORIDE SERUM 110 mmol/L (98-107); CREATININE SERUM 1.1 mg/dL (0.7-1.3); GFR1 > 60 mL/min; GLUCOSE SERUM 294 mg/dL (74-106); MAGNESIUM 1.5 mg/dL (1.8-2.4); SODIUM SERUM 145 mmol/L (136-145)
[2019-07-12 17:56] LABS: POTASSIUM SERUM 2.4 mmol/L (3.5-5.1)
[2019-07-13 04:35] VITALS: BP 119/68
[2019-07-13 07:14] LABS: BASOPHIL % 1.1 % (0-2)
[2019-07-13 07:20] LABS: PLATELET COUNT 86 x10^3mcL (130-400)
[2019-07-13 08:09] LABS: CALCIUM 8.5 mg/dL (8.5-10.1); CARBON DIOXIDE 28.6 mmol/L (21-32); GFR1 > 60 mL/min; GLUCOSE SERUM 151 mg/dL (74-106); MAGNESIUM 2.5 mg/dL (1.8-2.4); SODIUM SERUM 146 mmol/L (136-145)
[2019-07-13 08:15] LABS: POTASSIUM SERUM 2.2 mmol/L (3.5-5.1)
[2019-07-13 08:33] LABS: CHLORIDE SERUM 109 mmol/L (98-107)
[2019-07-13 08:38] VITALS: BP 128/87
[2019-07-13 12:14] VITALS: BP 141/84
[2019-07-13 16:39] VITALS: BP 121/70
[2019-07-13 21:20] VITALS: BP 112/65
[2019-07-14 06:05] VITALS: BP 140/84
[2019-07-14 07:07] LABS: PLATELET COUNT 90 x10^3mcL (130-400)
[2019-07-14 07:08] LABS: CALCIUM 8.7 mg/dL (8.5-10.1); CARBON DIOXIDE 26.9 mmol/L (21-32); CHLORIDE SERUM 111 mmol/L (98-107); GFR1 > 60 mL/min; GLUCOSE SERUM 110 mg/dL (74-106); SODIUM SERUM 146 mmol/L (136-145)
[2019-07-14 07:12] LABS: POTASSIUM SERUM 2.8 mmol/L (3.5-5.1)
[2019-07-14 08:44] VITALS: BP 142/82
[2019-07-14 12:31] VITALS: BP 130/66
[2019-07-14 17:19] VITALS: Ht 177.8 cm; Wt 113.1 kg
[2019-07-14 17:25] VITALS: BP 115/61
[2019-07-14 21:52] VITALS: BP 108/66
[2019-07-15 06:31] VITALS: BP 136/84
[2019-07-15 07:31] LABS: BASOPHIL % 1.3 % (0-2)
[2019-07-15 07:48] LABS: PLATELET COUNT 88 x10^3mcL (130-400); RED CELL DISTRIBUTION WIDTH 18.5 % (11.5-14.5)
[2019-07-15 08:37] LABS: CALCIUM 8.3 mg/dL (8.5-10.1); CARBON DIOXIDE 29.7 mmol/L (21-32); CHLORIDE SERUM 114 mmol/L (98-107); CREATININE SERUM 1.1 mg/dL (0.7-1.3); GFR1 > 60 mL/min; GLUCOSE SERUM 75 mg/dL (74-106); MAGNESIUM 1.9 mg/dL (1.8-2.4); POTASSIUM SERUM 3.1 mmol/L (3.5-5.1); SODIUM SERUM 149 mmol/L (136-145)
[2019-07-15 08:40] VITALS: BP 139/80
[2019-07-15 11:24] VITALS: BP 139/80
[2019-07-15 12:41] VITALS: BP 122/69
[2019-07-15 17:16] VITALS: BP 117/76
[2019-07-15 20:29] VITALS: BP 109/62
[2019-07-16 04:24] VITALS: BP 140/94
[2019-07-16 07:24] VITALS: BP 117/81
[2019-07-16 07:35] LABS: CALCIUM 8.9 mg/dL (8.5-10.1); CARBON DIOXIDE 24.9 mmol/L (21-32); CHLORIDE SERUM 110 mmol/L (98-107); GFR1 > 60 mL/min; GLUCOSE SERUM 98 mg/dL (74-106); MAGNESIUM 1.8 mg/dL (1.8-2.4); POTASSIUM SERUM 3.4 mmol/L (3.5-5.1); SODIUM SERUM 145 mmol/L (136-145)
[2019-07-16 12:23] VITALS: BP 111/65
[2019-07-16 17:01] VITALS: BP 105/64
[2019-07-16 17:10] VITALS: BP 105/64
[2019-07-16] MEDS ORDERED: MERREM IV1 GM IV (18:42)
== END 2019-07-16 19:00 | DRG 193 ==
LOC: ED 21:07 → DU 07-12 01:13
PROVIDERS: Emergency Medicine; ADMIT Internal Medicine Pulmonary Disease
DX: J18.9 Pneumonia, unspecified organism (principal); G93.41 Metabolic encephalopathy; N39.0 Urinary tract infection, site not specified; I13.0 Hypertensive heart and chronic kidney disease with heart failure and stage 1 through stage 4 chronic kidney disease, or unspecified chronic kidney disease; Z16.12 Extended spectrum beta lactamase (ESBL) resistance; Z16.24 Resistance to multiple antibiotics; E87.3 Alkalosis; B96.1 Klebsiella pneumoniae [K. pneumoniae] as the cause of diseases classified elsewhere; N18.3 Chronic kidney disease, stage 3 (moderate); E11.22 Type 2 diabetes mellitus with diabetic chronic kidney disease; E87.6 Hypokalemia; T50.1X5A Adverse effect of loop [high-ceiling] diuretics, initial encounter; I50.9 Heart failure, unspecified; I48.91 Unspecified atrial fibrillation; K70.30 Alcoholic cirrhosis of liver without ascites; F10.10 Alcohol abuse, uncomplicated; J44.9 Chronic obstructive pulmonary disease, unspecified; I87.8 Other specified disorders of veins; R54 Age-related physical debility; F41.8 Other specified anxiety disorders; E66.01 Morbid (severe) obesity due to excess calories; Z91.19 Patient's noncompliance with other medical treatment and regimen; Z79.4 Long term (current) use of insulin; Z68.39 Body mass index [BMI] 39.0-39.9, adult; Y90.0 Blood alcohol level of less than 20 mg/100 ml; Y92.009 Unspecified place in unspecified non-institutional (private) residence as the place of occurrence of the external cause
CPT/HCPCS: 82962; 87804; 97110-GP; 97116-GP; 97530-GP; G0378; G0480; J0456; J0696; J1644; J1815; J2185; J3475; J3480; J7030; J7040; J7050; J7060; J7620; J7626; Q0092

== ENCOUNTER 2019-09-10 14:25 | Inpatient (IN) | payer OTHER ==
[~2019-09-10] VITALS: Ht 172.7 cm; Wt 104.3 kg
[~2019-09-10 14:25] MED LIST changes: +MERREM IV1 GM IV
[2019-09-10 14:45] VITALS: Ht 172.7 cm; Wt 104.3 kg
[2019-09-10 15:48] LABS: BASOPHIL % 0.9 % (0-2); PLATELET COUNT 134 x10^3mcL (130-400)
[2019-09-10 16:04] LABS: ALKALINE PHOSPHATASE 70 U/L (46-116); ALT/SGPT 11 U/L (16-63); AST/SGOT 25 U/L (15-37); BILIRUBIN TOTAL 1.1 mg/dL (0.20-1.00); C REACTIVE PROTEIN 5.2 mg/dL (<=0.9); CARBON DIOXIDE 36.2 mmol/L (21-32); CHLORIDE SERUM 110 mmol/L (98-107); GFR1 > 60 mL/min; GLUCOSE SERUM 174 mg/dL (74-106); POTASSIUM SERUM 3.1 mmol/L (3.5-5.1); SODIUM SERUM 151 mmol/L (136-145); TOTAL PROTEIN, SERUM 8.2 g/dL (6.4-8.2)
[2019-09-10 16:07] LABS: ALBUMIN 2.5 g/dL (3.4-5.0)
[2019-09-10 16:34] LABS: ERYTHROCYTE SED RATE 51 mm/hr (0-20)
[2019-09-10 17:31] LABS: CALCIUM 9.4 mg/dL (8.5-10.1)
[2019-09-10 20:40] VITALS: BP 145/93
[2019-09-11 05:51] VITALS: BP 146/76
[2019-09-11 06:46] LABS: BASOPHIL % 0.6 % (0-2); PLATELET COUNT 134 x10^3mcL (130-400)
[2019-09-11 06:50] LABS: ALKALINE PHOSPHATASE 69 U/L (46-116); ALT/SGPT 11 U/L (16-63); AST/SGOT 21 U/L (15-37); BILIRUBIN TOTAL 1.19 mg/dL (0.20-1.00); CALCIUM 8.9 mg/dL (8.5-10.1); CARBON DIOXIDE 33.6 mmol/L (21-32); CHLORIDE SERUM 111 mmol/L (98-107); GFR1 > 60 mL/min; GLUCOSE SERUM 163 mg/dL (74-106); MAGNESIUM 1.8 mg/dL (1.8-2.4); SODIUM SERUM 150 mmol/L (136-145); TOTAL PROTEIN, SERUM 8.2 g/dL (6.4-8.2)
[2019-09-11 07:17] LABS: RED CELL DISTRIBUTION WIDTH 17.2 % (11.5-14.5)
[2019-09-11 07:47] LABS: ALBUMIN 2.6 g/dL (3.4-5.0); POTASSIUM SERUM 2.8 mmol/L (3.5-5.1)
[2019-09-11 09:03] VITALS: BP 176/88
[2019-09-11 13:53] VITALS: BP 176/88
[2019-09-11 14:18] VITALS: BP 139/66
== END 2019-09-11 16:00 | disposition home or self-care (01) | DRG 638 ==
LOC: ED 14:25 → MU 17:42
PROVIDERS: Emergency Medicine; ADMIT Internal Medicine Pulmonary Disease
DX: E11.621 Type 2 diabetes mellitus with foot ulcer (principal); L97.419 Non-pressure chronic ulcer of right heel and midfoot with unspecified severity; E87.6 Hypokalemia; I48.91 Unspecified atrial fibrillation; I11.0 Hypertensive heart disease with heart failure; I50.9 Heart failure, unspecified; J44.9 Chronic obstructive pulmonary disease, unspecified; E78.00 Pure hypercholesterolemia, unspecified; F41.9 Anxiety disorder, unspecified; F32.9 Major depressive disorder, single episode, unspecified; Z79.84 Long term (current) use of oral hypoglycemic drugs; Z79.4 Long term (current) use of insulin; Z68.34 Body mass index [BMI] 34.0-34.9, adult
CPT/HCPCS: 82962; G0378; J1644; J1815; J2543; J3370; J7030; J7040; J7050; Q0092